=== PATIENT | male | born 1970 | race Caucasian/White ===

== ENCOUNTER 2019-03-01 22:11 | Emergency (ER) | payer OTHER ==
--- OUTSIDE RECORDS SUMMARY | 2019-03-01 22:13 | XMS REPORT ---
:1970 Author Organization eClinicalWorks Care Team Providers Name Role Phone Henry Jimenez Provider Role Unavailable Allergies, Adverse Reactions, Alerts Substance Reaction Event Type codeine Info Not Available Drug Allergy Problems Problem Type Condition Code Onset Dates Condition Status Assessment Anxiety F41.9 Active Problem Essential (primary) hypertension I10 Active Problem Primary insomnia F51.01 Active Problem Anxiety F41.9 Active Assessment Sleep disturbance G47.9 Active Assessment Essential (primary) hypertension I10 Active Problem Sleep disturbance G47.9 Active Medications Medication Code System Code Instructions Start End Date Status Dosage Date Edarbi [facility] 48749165981 40 MG Oral Active not defined Belsomra [facility] 80923142615 10 MG Orally January 09, Active 1 tablet at Once a day 2018 bedtime as needed Bystolic ND 57765811119 20 MG Oral Active not defined Results No Known Results Summary Purpose eClinicalWorks Submission
--- OUTSIDE RECORDS SUMMARY | 2019-03-01 22:13 | XMS REPORT ---
:1970 Author Organization eClinicalWorks Care Team Providers Name Role Phone Henry Jimenez Provider Role Unavailable Allergies, Adverse Reactions, Alerts Substance Reaction Event Type codeine Info Not Available Drug Allergy Problems Problem Type Condition Code Onset Dates Condition Status Assessment Sleep disturbance G47.9 Active Assessment Acute gout of right foot, M10.9 Active unspecified cause Assessment Hypertriglyceridemia E78.1 Active Problem Acute gout of right foot, M10.9 Active unspecified cause Problem Anxiety F41.9 Active Problem Hypertriglyceridemia E78.1 Active Problem Sleep disturbance G47.9 Active Problem Essential (primary) hypertension I10 Active Problem Primary insomnia F51.01 Active Medications Medication Code Code Instructions Start End Date Status Dosage System Date Edarbi [facility] 83549661840 40 MG Oral Active not defined Tricor [facility] 69951086339 145 MG Orally Mar 17, Active 1 tablet Once a day 2017 with food Indomethacin ND 66216399631 50 MG Orally Mar 17, Apr 16, Active 1 capsule Twice a day 2017 2017 with food or milk Belsomra [facility] 88631739718 10 MG Orally January 09, Active 1 tablet Once a day 2017 at bedtime as needed Bystolic ND 75699932752 20 MG Oral Active not defined Results No Known Results Summary Purpose eClinicalWorks Submission
--- OUTSIDE RECORDS SUMMARY | 2019-03-01 22:13 | XMS REPORT ---
:1970 Author Organization eClinicalWorks Care Team Providers Name Role Phone Henry Jimenez Provider Role Unavailable Allergies, Adverse Reactions, Alerts Substance Reaction Event Type codeine Info Not Available Drug Allergy Problems Problem Type Condition Code Onset Dates Condition Status Assessment Essential (primary) hypertension I10 Active Assessment Tobacco abuse counseling Z71.6 Active Problem Acute gout of right foot, M10.9 Active unspecified cause Problem Anxiety F41.9 Active Problem Hypertriglyceridemia E78.1 Active Problem Sleep disturbance G47.9 Active Problem Essential (primary) hypertension I10 Active Problem Primary insomnia F51.01 Active Medications Medication Code Code Instructions Start End Status Dosage System Date Date Indomethacin [facility] 65350595212 50 MG Orally Active 1 capsule Twice a day with food or milk Tricor [facility] 62560518701 145 MG Orally Mar 17, Active 1 tablet Once a day 2018 with food Edarbi ND 25786240681 40 MG Oral Active not defined BusPIRone HCl ND 01651652241 10 MG Orally Apr 25, Active 1 tablet Twice a day 2018 HydrOXYzine HCl ND 15453617782 25 MG Orally Oct 25, Active 1 tablet every 8 hrs 2018 as needed Belsomra ND 03845070434 10 MG Orally January 09, Active 1 tablet Once a day 2018 at bedtime as needed Bystolic ND 83746596205 20 MG Oral Inactive not defined Results No Known Results Summary Purpose eClinicalWorks Submission
--- OUTSIDE RECORDS SUMMARY | 2019-03-01 22:13 | XMS REPORT ---
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 Problem Obstructive sleep apnea G47.33 Active Problem Essential (primary) hypertension I10 Active Problem Primary insomnia F51.01 Active Problem Acute gout of right foot, M10.9 Active unspecified cause Problem Hypertriglyceridemia E78.1 Active Assessment 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 Assessment Essential (primary) hypertension I10 Active Assessment Hypertriglyceridemia E78.1 Active Assessment Obstructive sleep apnea G47.33 Active Assessment Decreased libido R68.82 Active Medications Medication Code Code Instructions Start End Status Dosage System Date Date Indomethacin [facility] 52796554662 50 MG Orally Active 1 capsule Twice a day with food or milk BusPIRone HCl [facility] 08821530625 10 MG Orally Oct 25, Active 1 tablet Twice a day 2018 Edarbi [facility] 42763052256 40 MG Oral Active not defined Tricor [facility] 90328881586 145 MG Orally Active 1 tablet Once a day with food HydrOXYzine HCl [facility] 93988916662 25 MG Orally Oct 25, Active 1 tablet every 8 hrs 2018 as needed Belsomra ND 26633372259 10 MG Orally January 09, Active 1 tablet Once a day 2018 at bedtime as needed Results No Known Results Summary Purpose eClinicalWorks Submission
--- OUTSIDE RECORDS SUMMARY | 2019-03-01 22:14 | XMS REPORT ---
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, without tophus (tophi) Problem Obstructive sleep apnea G47.33 Active Problem Erectile dysfunction, unspecified N52.9 Active erectile dysfunction type Problem Hypertriglyceridemia E78.1 Active Problem Essential (primary) hypertension I10 Active Problem 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 Problem Acute gout of right foot, M10.9 Active unspecified cause Assessment Hypertriglyceridemia E78.1 Active Assessment 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 Assessment Erectile dysfunction, unspecified N52.9 Active erectile dysfunction type Assessment Essential (primary) hypertension I10 Active Assessment Obstructive sleep apnea G47.33 Active Medications Medication Code Code Instructions Start End Status Dosage System Date Date Allopurinol [facility] 88888345920 300 MG Orally September Active 1 tablet Once a day 2018 Indomethacin [facility] 72033669677 50 MG Orally Active 1 capsule Twice a day with food or milk Edarbi [facility] 33267407564 40 MG Oral Active not defined Belsomra [facility] 65987936011 10 MG Orally January 09, Active 1 tablet Once a day 2017 at bedtime as needed Tricor [facility] 57886515623 145 MG Orally Active 1 tablet Once a day with food HydrOXYzine HCl [facility] 10038611525 25 MG Orally Oct 25, Active 1 tablet every 8 hrs 2017 as needed BusPIRone HCl [facility] 17783422136 10 MG Orally Oct 25, Active 1 tablet Twice a day 2018 Cialis [facility] 19348510928 20 MG Orally September Active 1 tablet Once a day 2018 Results No Known Results Summary Purpose eClinicalWorks Submission
[2019-03-01] MEDS ORDERED: TETANUS & DIPHTHERIA TOX,ADULT 0.5 ML VIAL ONE (22:57)
[2019-03-01] MEDS ORDERED: DERMABOND SKIN ADHESIVE TOP ONE (23:28)
[2019-03-01] MEDS ORDERED: LIDOCAINE 1% W/EPI 1:100,000 MDV 20 ML VIAL ONE (23:33)
--- NOTE | 2019-03-01 23:54 | ER ---
Nurse's Notes [facility] Name: Sheng Coats Age: 48 yrs Sex: Male : 1970 Arrival Date: 03/01/2019 Time: 22:17 Bed 19 Private MD: Henry Jimenez Diagnosis: Abrasion of other part of head;Laceration without foreign body of other part of head Presentation: 03/01 22:25 Presenting complaint: states: Pt had been drinking vodka and fell down and hit tr5 face on the ground. Transition of care: patient was not received from another setting of care. Mechanism of Injury: resulted from a fall, while walking. Onset of symptoms was March 01, 2019. Risk Assessment: Do you want to hurt yourself or someone else? Patient reports no desire to harm self or others. Initial Sepsis Screen: Does the patient meet any 2 criteria? No. Patient's initial sepsis screen is negative. Does the patient have a suspected source of infection? No. Patient's initial sepsis screen is negative. Care prior to arrival: None. 22:25 Method Of Arrival: Ambulatory tr5 22:25 Acuity: MARY 3 tr5 Historical: - Allergies: 22:32 Codeine; tr5 - Home Meds: 22:32 lisinopril 20 mg Oral tab 1 tab once daily [Active]; tr5 - PMHx: 22:32 Hypertension; tr5 22:33 GERD; Hyperlipidemia; tr5 - PSHx: 22:33 shoulder surgery; tr5 - Immunization history:: Adult Immunizations up to date, Last tetanus immunization: unknown. - Social history:: Smoking status: Patient uses tobacco products, smokes one-half pack cigarettes per day. - Ebola Screening: : No symptoms or risks identified at this time. Screenin:38 Abuse screen: Denies threats or abuse. Nutritional screening: No deficits noted. tr5 Tuberculosis screening: No symptoms or risk factors identified. Fall Risk None identified. Assessment: 22:38 General: Appears in no apparent distress. Behavior is calm, cooperative. Pain: tr5 Complains of pain in forehead Quality of pain is described as aching, Pain began 1 hour ago. Neuro: Level of Consciousness is awake, alert, obeys commands, Oriented to person, place, time, Paper Coating Supervisor are equal bilaterally Moves all extremities. Gait is steady. Cardiovascular: Heart tones present Bruits absent Capillary refill < 3 seconds Pulses are all present. Edema is absent. Respiratory: Airway is patent Trachea midline Respiratory effort is even, unlabored, Respiratory pattern is regular, symmetrical, Breath sounds are clear bilaterally. GI: Reports nausea. : No signs and/or symptoms were reported regarding the genitourinary system. EENT: No signs and/or symptoms were reported regarding the EENT system. Derm: Skin is intact, Skin temperature is. Musculoskeletal: Capillary refill < 3 seconds. Injury Description: Head injury sustained to forehead. 23:30 Reassessment: Patient and/or family updated on plan of care and expected duration. Pain tr5 level reassessed. Patient is alert, oriented x 3, equal unlabored respirations, skin warm/dry/pink. Patient states feeling better. Vital Signs: 22:33 BP 145 / 99; Pulse 95; Resp 16; Temp 98(TE); Pulse Ox 96% on R/A; Weight 116.12 kg; tr5 Height 6 ft. 3 in. (190.50 cm); 23:30 BP 142 / 80; Pulse 90; Resp 18; Pulse Ox 100% on R/A; tr5 22:33 Body Mass Index 32.00 (116.12 kg, 190.50 cm) tr5 [place] Coma Score: 22:25 Eye Response: spontaneous(4). Verbal Response: confused(4). Motor Response: localizes tr5 pain(5). Total: 13. 08/12 00:32 Eye Response: spontaneous(4). Verbal Response: oriented(5). Motor Response: obeys gs commands(6). Total: 15. 00:32 Eye Response: spontaneous(4). Verbal Response: oriented(5). Motor Response: obeys gs commands(6). Total: 15. ED Course: 03/01 22:17 Patient arrived in ED. cl3 22:18 Henry Jimenez MD is Private Physician. cl3 22:21 Khadar Hernandez MD is Attending Physician. gs 22:25 Brodie Moore RN is Primary Nurse. tr5 22:27 Triage completed. tr5 22:33 Arm band placed on. tr5 22:38 Fall risk band placed. Placed in gown. Bed in low position. Door closed. Noise tr5 minimized. 23:07 Head C Spine Mpr Wo Con In Process Unspecified. EDAL 03/02 00:09 No provider procedures requiring assistance completed. Patient did not have IV access tr5 during this emergency room visit. Administered Medications: 03/01 23:03 Drug: Tetanus-Diphtheria Toxoid Adult 0.5 ml {Steam Flattener: [employer]. Exp: tr5 10/30/2020. Lot #: [id number]. } Route: IM; Site: right ventrogluteal; 23:42 Follow up: Response: No adverse reaction tr5 23:42 Drug: Lidocaine-Epinephrine -1%: (1:100,000) 5 ml Volume: 20 ml; Route: Infiltration; tr5 03/02 00:08 Not Given (Patient Refused): Tylenol 650 mg PO once tr5 Outcome: 03/01 23:53 Discharge ordered by . 03/02 00:09 Discharged to home ambulatory, with significant other. tr5 Condition: stable Discharge instructions given to patient, significant other, Instructed on discharge instructions, follow up and referral plans. Demonstrated understanding of instructions, follow-up care. 00:10 Patient left the ED. tr5 Signatures: Dispatcher [employer] EDAL Khadar Hernandez MD MD gs Rodriguez, Tommie RN RN tr5 Michael Buckley cl3
--- NOTE | 2019-03-01 23:54 | EDPHYS ---
Physician Documentation [facility] Name: Sheng Coats Age: 48 yrs Sex: Male : 1970 Arrival Date: 03/01/2019 Time: 22:17 Bed 19 Private MD: Henry Jimenez ED Physician Khadar Hernandez HPI: 03/02 00:32 This 48 yrs old Male presents to ER via Ambulatory with complaints of Head gs Injury-Adult. 00:32 The patient or guardian reports a laceration, 3 cm(s), irregular. The complaints affect gs the forehead. Context of injury: resulted from a fall, while walking. Onset: The symptoms/episode began/occurred acutely, just prior to arrival. Associated signs and symptoms:. Associated signs and symptoms: Pertinent positives: loss of conciousness. Severity of symptoms: At their worst the symptoms were moderate, in the emergency department the symptoms are unchanged. It is unknown whether or not the patient has had similar symptoms in the past. Historical: - Allergies: 03/01 22:32 Codeine; tr5 - Home Meds: 22:32 lisinopril 20 mg Oral tab 1 tab once daily [Active]; tr5 - PMHx: 22:32 Hypertension; tr5 22:33 GERD; Hyperlipidemia; tr5 - PSHx: 22:33 shoulder surgery; tr5 - Immunization history:: Adult Immunizations up to date, Last tetanus immunization: unknown. - Social history:: Smoking status: Patient uses tobacco products, smokes one-half pack cigarettes per day. - Ebola Screening: : No symptoms or risks identified at this time. ROS: 03/02 00:32 All other systems are negative. gs Exam: 00:32 ENT: Nares patent. No nasal discharge, no septal abnormalities noted. Tympanic gs membranes are normal and external auditory canals are clear. Oropharynx with no redness, swelling, or masses, exudates, or evidence of obstruction, uvula midline. Mucous membranes moist. Neck: Trachea midline, no thyromegaly or masses palpated, and no cervical lymphadenopathy. Supple, full range of motion without nuchal rigidity, or vertebral point tenderness. No Meningismus. Chest/axilla: Normal chest wall appearance and motion. Nontender with no deformity. No lesions are appreciated. Cardiovascular: Regular rate and rhythm with a normal S1 and S2. No gallops, murmurs, or rubs. Normal PMI, no JVD. No pulse deficits. Respiratory: Lungs have equal breath sounds bilaterally, clear to auscultation and percussion. No rales, rhonchi or wheezes noted. No increased work of breathing, no retractions or nasal flaring. Abdomen/GI: Soft, non-tender, with normal bowel sounds. No distension or tympany. No guarding or rebound. No evidence of tenderness throughout. Back: No spinal tenderness. No costovertebral tenderness. Full range of motion. 00:32 Skin: Warm, dry with normal turgor. Normal color with no rashes, no lesions, and no evidence of cellulitis. MS/ Extremity: Pulses equal, no cyanosis. Neurovascular intact. Full, normal range of motion. Neuro: Awake and alert, GCS 15, oriented to person, place, time, and situation. Cranial nerves II-XII grossly intact. Motor strength 5/5 in all extremities. Sensory grossly intact. Cerebellar exam normal. Normal gait. 00:32 Constitutional: The patient appears alert, awake. 00:32 Constitutional: The patient appears smells of alcohol, ETOH. 00:32 Head/face: Noted is a laceration(s), that is deep, 3 cm(s), of the forehead. 00:32 Eyes: Exam is negative for acute changes, Periorbital structures: appear normal. 00:52 Head/face: Noted is abrasion(s), that are mild, of the chin. Vital Signs: 03/01 22:33 BP 145 / 99; Pulse 95; Resp 16; Temp 98(TE); Pulse Ox 96% on R/A; Weight 116.12 kg; tr5 Height 6 ft. 3 in. (190.50 cm); 23:30 BP 142 / 80; Pulse 90; Resp 18; Pulse Ox 100% on R/A; tr5 22:33 Body Mass Index 32.00 (116.12 kg, 190.50 cm) tr5 [place] Coma Score: 22:25 Eye Response: spontaneous(4). Verbal Response: confused(4). Motor Response: localizes tr5 pain(5). Total: 13. 08 00:32 Eye Response: spontaneous(4). Verbal Response: oriented(5). Motor Response: obeys commands(6). Total: 15. 00:32 Eye Response: spontaneous(4). Verbal Response: oriented(5). Motor Response: obeys commands(6). Total: 15. Laceration: 00:32 Wound Repair of 3cm ( 1.2in ) subcutaneous laceration to face and forehead. Irregularly gs shaped.. Skin/tissue flap noted.. Distal neuro/vascular/tendon intact. Anesthesia: Local anesthetic administered with 3 mls of 1% lidocaine w/ Epi. Wound prep: Simple cleansing with betadine, Copious irrigation. Subcutaneous tissue closed with 4 5-0 Vicryl using simple sutures and sterile technique. Skin closed with 1-0 Adhesive skin closure using Dermabond. Patient tolerated well. MDM: 03/01 22:31 Patient medically screened. 03/02 00:32 Differential diagnosis: Laceration of Intracranial bleed- Concussion. Data reviewed: vital signs, nurses notes. Counseling: I had a detailed discussion with the patient and/or guardian regarding: the historical points, exam findings, and any diagnostic results supporting the discharge/admit diagnosis, radiology results, the need for outpatient follow up. Response to treatment: the patient's symptoms have markedly improved after treatment, and as a result, I will discharge patient. 03/01 23:07 Order name: Head C Spine Mpr Wo Con EDKY 03/01 22:32 Order name: Dermabond; Complete Time: 23:39 03/01 22:32 Order name: Dressing - Wound; Complete Time: 23:39 03/01 22:32 Order name: Setup Suture Tray; Complete Time: 23:39 Administered Medications: 03/01 23:03 Drug: Tetanus-Diphtheria Toxoid Adult 0.5 ml {Obiee Report Developer: [employer]. Exp: tr5 10/30/2020. Lot #: [id number]. } Route: IM; Site: right ventrogluteal; 23:42 Follow up: Response: No adverse reaction tr5 23:42 Drug: Lidocaine-Epinephrine -1%: (1:100,000) 5 ml Volume: 20 ml; Route: Infiltration; tr5 03/02 00:08 Not Given (Patient Refused): Tylenol 650 mg PO once tr5 Disposition: 03/01/19 23:53 Discharged to Home. Impression: Abrasion of other part of head, Laceration without foreign body of other part of head. - Condition is Stable. - Discharge Instructions: Tissue Adhesive Wound Care, Laceration Care, Adult, [id number]. - Medication Reconciliation Form, Thank You Letter, Antibiotic Education, Prescription Opioid Use form. - Follow up: Private Physician; When: 2 - 3 days; Reason: Re-evaluation by your physician. Signatures: Dispatcher [employer] [facility] Khadar Hernandez MD MD gs Rodriguez, Tommie RN RN tr5 Corrections: (The following items were deleted from the chart) 03/01 23:05 22:35 Head C Spine MPR Wo Con+CT.RAD.BRZ ordered. EDKY EDKY 23:07 23:05 [facility] 03/[facility] 00:10 03/01 23:53 03/01/2019 23:53 Discharged to Home. Impression: Abrasion of other part of tr5 head; Laceration without foreign body of other part of head. Condition is Stable. Forms are Medication Reconciliation Form, Thank You Letter, Antibiotic Education, Prescription Opioid Use. Follow up: Private Physician; When: 2 - 3 days; Reason: Re-evaluation by your physician. gs
--- NOTE | 2019-03-02 10:05 | RAD REPORT ---
EXAM DESCRIPTION: CT HEAD without IV contrast CT CERVICAL SPINE without IV contrast CLINICAL HISTORY: 48-year-old male who fell and hit his face TECHNIQUE: Multiple axial CT images of the brain and cervical spine were performed followed by sagit lori and coronal reconstructed images. The CT study is performed according to ALARA (as low as reasona rodolfo achievable) or ALARA/IMAGE GENTLY, with automatic adjustment of mA and/or kV according to patient size. Performed on: 03/01/2019 at 10:50 PM COMPARISON: None. FINDINGS: CT HEAD: There is no evidence of mass, acute mass effect or midline shift. There are no acute extra-axial flui d collections. There is no evidence of acute intracranial hemorrhage. The cerebral sulci and ventricles are normal in size and configuration. There are no focal abnormal areas of increased or decreased attenuation. There is no significant mucosal thickening of the paranasal sinuses. The mastoid air cells are clear. The orbital contents are grossly unremarkable. No acute osseous abnormalities are identified. No focal soft tissue abnormalities are identified. CT CERVICAL SPINE: The cervical vertebrae are normal in height. There is straightening of the normal cervical lordosis. The disc spaces are well preserved in height. Bone mineralization is normal. The atlanto-axial a rticulation is preserved and the odontoid process is intact. There is normal alignment of the facet joints on the parasagittal images. There are no significant de generative changes of the cervical spine. There is no evidence of acute fracture or subluxation. There is no significant canal stenosis. Ther e is no significant neural foraminal stenosis. The paravertebral and paraspinal soft tissues are un remarkable. The lung apices are clear. IMPRESSION: 1. There is no evidence of acute intracranial pathology. 2. No evidence of acute cervical spine injury. There is straightening of the normal cervical lordosis . Electronically signed by: Dulce Maria Barrera DO 03/01/2019 11:46 PM CDT Due to temporary technical issues with the PACS/Fluency reporting system, reports are being signed by the in house radiologist as a courtesy to ensure prompt reporting. The interpreting radiologist is f ully responsible for the content of the report.
== END 2019-03-02 00:10 | disposition home or self-care (01) ==
LOC: ER 22:11
DX: S00.81XA Abrasion of other part of head, initial encounter (principal); S01.81XA Laceration without foreign body of other part of head, initial encounter; W01.0XXA Fall on same level from slipping, tripping and stumbling without subsequent striking against object, initial encounter; Y93.01 Activity, walking, marching and hiking; I10 Essential (primary) hypertension; E78.5 Hyperlipidemia, unspecified; K21.9 Gastro-esophageal reflux disease without esophagitis; Z23 Encounter for immunization; F17.210 Nicotine dependence, cigarettes, uncomplicated
CPT/HCPCS: 70450; 72125; 90471; 90714; 99283

== ENCOUNTER 2019-07-20 21:01 | Emergency (ER) | payer OTHER ==
--- OUTSIDE RECORDS SUMMARY | 2019-07-20 21:03 | XMS REPORT ---
[...] End Date Status Dosage System Date Edarbi [facility] 06644468192 40 MG Oral Active not defined Tricor [facility] 52349301089 145 MG Orally Mar 17, Active 1 tablet Once a day 2017 with food Indomethacin ND 39729242004 50 MG Orally Mar 17, Apr 16, Active 1 capsule Twice a day 2017 2017 with food or milk Belsomra [facility] 25082135124 10 MG Orally January 09, Active 1 tablet Once a day 2017 at bedtime as needed Bystolic ND 26071344659 20 MG Oral Active not defined Results No Known Results Summary Purpose eClinicalWorks Submission
--- OUTSIDE RECORDS SUMMARY | 2019-07-20 21:03 | XMS REPORT ---
[...] Start End Date Status Dosage Date Edarbi [facility] 70739868578 40 MG Oral Active not defined Belsomra [facility] 44833814190 10 MG Orally January 09, Active 1 tablet at Once a day 2018 bedtime as needed Bystolic ND 17858136699 20 MG Oral Active not defined Results No Known Results Summary Purpose eClinicalWorks Submission
--- OUTSIDE RECORDS SUMMARY | 2019-07-20 21:04 | XMS REPORT ---
[...] End Status Dosage System Date Date Indomethacin [facility] 80497322320 50 MG Orally Active 1 capsule Twice a day with food or milk Tricor [facility] 89243995675 145 MG Orally Mar 17, Active 1 tablet Once a day 2018 with food Edarbi ND 29137211674 40 MG Oral Active not defined BusPIRone HCl ND 12716987354 10 MG Orally Apr 25, Active 1 tablet Twice a day 2018 HydrOXYzine HCl ND 96405363216 25 MG Orally Oct 25, Active 1 tablet every 8 hrs 2018 as needed Belsomra ND 09185465167 10 MG Orally January 09, Active 1 tablet Once a day 2018 at bedtime as needed Bystolic ND 68789770106 20 MG Oral Inactive not defined Results No Known Results Summary Purpose eClinicalWorks Submission
--- OUTSIDE RECORDS SUMMARY | 2019-07-20 21:04 | XMS REPORT ---
[...] End Status Dosage System Date Date Indomethacin [facility] 89257294969 50 MG Orally Active 1 capsule Twice a day with food or milk BusPIRone HCl [facility] 44265983599 10 MG Orally Oct 25, Active 1 tablet Twice a day 2018 Edarbi [facility] 79722388019 40 MG Oral Active not defined Tricor [facility] 86012283147 145 MG Orally Active 1 tablet Once a day with food HydrOXYzine HCl [facility] 63088840849 25 MG Orally Oct 25, Active 1 tablet every 8 hrs 2018 as needed Belsomra ND 00986040182 10 MG Orally January 09, Active 1 tablet Once a day 2018 at bedtime as needed Results No Known Results Summary Purpose eClinicalWorks Submission
--- OUTSIDE RECORDS SUMMARY | 2019-07-20 21:04 | XMS REPORT ---
[...] End Status Dosage System Date Date Allopurinol [facility] 19215128996 300 MG Orally September Active 1 tablet Once a day 2018 Indomethacin [facility] 35322959417 50 MG Orally Active 1 capsule Twice a day with food or milk Edarbi [facility] 63292987099 40 MG Oral Active not defined Belsomra [facility] 20776303277 10 MG Orally January 09, Active 1 tablet Once a day 2017 at bedtime as needed Tricor [facility] 47288105860 145 MG Orally Active 1 tablet Once a day with food HydrOXYzine HCl [facility] 41893420432 25 MG Orally Oct 25, Active 1 tablet every 8 hrs 2017 as needed BusPIRone HCl [facility] 86663005379 10 MG Orally Oct 25, Active 1 tablet Twice a day 2018 Cialis [facility] 82283815962 20 MG Orally September Active 1 tablet Once a day 2018 Results No Known Results Summary Purpose eClinicalWorks Submission
[2019-07-20] MEDS ORDERED: ONDANSETRON 4 MG/2 ML VIAL ONE (21:59)
[2019-07-20] MEDS ORDERED: MORPHINE 4 MG/ML SYR ONE (21:59)
[2019-07-20] MEDS ORDERED: NA CHLORIDE 0.9% 1,000 ML ONE (21:59)
[2019-07-20 22:13] LABS: Absolute Lymphocytes (CBC) 1.4 K/uL (0.7-4.9); Basophils % 0.3 % (0-1.3); Hematocrit 43.8 % (39.6-49.0); MPV 6.8 fL (7.6-11.3); RBC Red Blood Cell Count 4.74 M/uL (4.33-5.43)
[2019-07-20 22:22] LABS: Albumin 3.6 g/dL (3.4-5.0); Bilirubin Direct 0.3 mg/dL (0-0.2); Potassium 4.6 mmol/L (3.5-5.1); Protein, Total 7.4 g/dL (6.4-8.2)
--- NOTE | 2019-07-20 22:33 | RAD REPORT ---
EXAM DESCRIPTION: US - Abdomen Exam Limited - 07/20/2019 10:15 pm CLINICAL HISTORY: Abdominal pain. COMPARISON: None. FINDINGS: The gallbladder wall is not thickened. A gallstone is not seen. The biliary tree is normal caliber. IMPRESSION: Unremarkable gallbladder ultrasound.
--- NOTE | 2019-07-20 23:48 | EDPHYS ---
Physician Documentation [facility] Name: Sheng Coats Age: 48 yrs Sex: Male : 1970 Arrival Date: 07/20/2019 Time: 21:04 Bed 2 Private MD: ED Physician Conrado Ashraf HPI: 07/20 22:28 This 48 yrs old Male presents to ER via Ambulatory with complaints of pkl Abdominal Pain. 22:28 The patient presents with abdominal pain in the right upper quadrant. Onset: The pkl symptoms/episode began/occurred today. The symptoms radiate to the right flank. Associated signs and symptoms: Pertinent positives: diarrhea. Historical: - Allergies: 21:32 No Known Allergies; rr5 - Home Meds: 21:32 Edarvi [Active]; rr5 - PMHx: 21:32 Hypertension; GERD; rr5 - PSHx: 21:32 rotator cuff; rr5 - Immunization history:: Adult Immunizations up to date. - Social history:: Smoking status: Patient/guardian denies using tobacco, Patient uses alcohol, occasionally. Patient/guardian denies using street drugs. - Ebola Screening: : Patient negative for fever greater than or equal to 101.5 degrees Fahrenheit, and additional compatible Ebola Virus Disease symptoms Patient denies exposure to infectious person Patient denies travel to an Ebola-affected area in the 21 days before illness onset. ROS: 22:28 Eyes: Negative for injury, pain, redness, and discharge, ENT: Negative for injury, pkl pain, and discharge, Neck: Negative for injury, pain, and swelling, Cardiovascular: Negative for chest pain, palpitations, and edema, Respiratory: Negative for shortness of breath, cough, wheezing, and pleuritic chest pain. 22:28 Abdomen/GI: Positive for abdominal pain, of the right upper quadrant. 22:28 Back: Positive for flank pain, on the right. 22:28 : Negative for urinary symptoms. 22:28 MS/extremity: Negative for acute changes. 22:28 Skin: Negative for rash. 22:28 Neuro: Negative for altered mental status. Exam: 22:28 Head/Face: Normocephalic, atraumatic. Eyes: Pupils equal round and reactive to light, pkl extra-ocular motions intact. Lids and lashes normal. Conjunctiva and sclera are non-icteric and not injected. Cornea within normal limits. Periorbital areas with no swelling, redness, or edema. ENT: Nares patent. No nasal discharge, no septal abnormalities noted. Tympanic membranes are normal and external auditory canals are clear. Oropharynx with no redness, swelling, or masses, exudates, or evidence of obstruction, uvula midline. Mucous membranes moist. Neck: Trachea midline, no thyromegaly or masses palpated, and no cervical lymphadenopathy. Supple, full range of motion without nuchal rigidity, or vertebral point tenderness. No Meningismus. Chest/axilla: Normal chest wall appearance and motion. Nontender with no deformity. No lesions are appreciated. Cardiovascular: Regular rate and rhythm with a normal S1 and S2. No gallops, murmurs, or rubs. Normal PMI, no JVD. No pulse deficits. Respiratory: Lungs have equal breath sounds bilaterally, clear to auscultation and percussion. No rales, rhonchi or wheezes noted. No increased work of breathing, no retractions or nasal flaring. 22:28 Abdomen/GI: Palpation: soft, mild abdominal tenderness, in the right upper quadrant. 22:28 Back: Exam negative for acute changes. 22:28 : Exam negative for acute changes. 22:28 Musculoskeletal/extremity: Exam is negative for acute changes. 22:28 Skin: Exam negative for rash. 22:28 Neuro: Orientation: is normal, Mentation: is normal, Cranial nerves: grossly normal, Motor: is normal. Vital Signs: 21:32 BP 140 / 91; Pulse 102; Resp 17; Temp 97.9; Pulse Ox 99% ; Weight 112.94 kg; Height 6 rr5 ft. 3 in. (190.50 cm); Pain 4/10; 22:37 BP 151 / 98; Pulse 100; Resp 18; Pulse Ox 96% on R/A; ea 23:55 BP 139 / 93; Pulse 67; Resp 18; Temp 98; Pulse Ox 100% on R/A; bb 21:32 Body Mass Index 31.12 (112.94 kg, 190.50 cm) rr5 MDM: 21:44 Patient medically screened. pkl 23:43 Data reviewed: vital signs, nurses notes, lab test result(s), radiologic studies, CT pkl scan, ultrasound. 07/20 21:45 Order name: Basic Metabolic Panel; Complete Time: 22:24 ea 07/20 21:45 Order name: CBC with Diff; Complete Time: 22:24 ea 07/20 21:45 Order name: Creatinine for Radiology; Complete Time: 22:24 ea 07/20 21:45 Order name: Hepatic Function; Complete Time: 22:24 ea 07/20 21:45 Order name: Lipase; Complete Time: 22:24 ea 07/20 23:08 Order name: Urine Dipstick--Ancillary (enter results) ar5 07/20 21:45 Order name: IV Saline Lock; Complete Time: 21:57 ea 07/20 21:45 Order name: Labs collected and sent; Complete Time: :57 ea 07/20 21:51 Order name: US Abdomen Limited; Complete Time: 23:43 pkl 07/20 22:27 Order name: CT Abd/Pelvis - IV Contrast Only pkl Administered Medications: 22:00 Drug: Zofran 4 mg Route: IVP; Site: left antecubital; ea 22:14 Follow up: Response: No adverse reaction ea 22:02 Drug: NS 0.9% 1000 ml Route: IV; Rate: 1000 ml; Site: left antecubital; ea 23:00 Follow up: Response: No adverse reaction; IV Status: Completed infusion; IV Intake: bb 1000ml 22:02 Drug: morphine 4 mg {Note: RASS 0.} Route: IVP; Site: left antecubital; ea 22:13 Follow up: Response: No adverse reaction; Pain is decreased ea Disposition: 07/20/19 23:48 Discharged to Home. Impression: Right upper quadrant pain. Gastroenteritis. Dehydration. - Condition is Stable. - Medication Reconciliation Form, Thank You Letter, Antibiotic Education, Prescription Opioid Use, Work release form form. - Follow up: Private Physician; When: 2 - 3 days; Reason: Re-evaluation by your physician. - Problem is new. - Symptoms have improved. Signatures: Dispatcher [employer] EDMS Conrado Ashraf MD MD pkl Ballard, Brenda, RN RN Melissa Simpson, RN RN Vinnie Jimenez RN RN rr5 Corrections: (The following items were deleted from the chart) 07/21 00:05 07/20 23:48 07/20/2019 23:48 Discharged to Home. Impression: Right upper quadrant pain. bb Gastroenteritis. Dehydration. Condition is Stable. Forms are Medication Reconciliation Form, Thank You Letter, Antibiotic Education, Prescription Opioid Use. Follow up: Private Physician; When: 2 - 3 days; Reason: Re-evaluation by your physician. Problem is new. Symptoms have improved. pkl
--- NOTE | 2019-07-20 23:48 | ER ---
Nurse's Notes [facility] Name: Sheng Coats Age: 48 yrs Sex: Male : 1970 Arrival Date: 07/20/2019 Time: 21:04 Bed 2 Private MD: Diagnosis: Right upper quadrant pain. Gastroenteritis. Dehydration Presentation: 07/20 21:25 Presenting complaint: Patient states: abdominal pain (RUQ) area radiating to flank area rr5 started today. diarrhea 5x, at first I thought its like acid reflux I took antacid but it did not relieved. denies fever, N/V. 21:25 Transition of care: patient was not received from another setting of care. Onset of rr5 symptoms was July 20, 2019. Risk Assessment: Do you want to hurt yourself or someone else? Patient reports no desire to harm self or others. Initial Sepsis Screen: Does the patient meet any 2 criteria? No. Patient's initial sepsis screen is negative. Does the patient have a suspected source of infection? No. Patient's initial sepsis screen is negative. Care prior to arrival: Medication(s) given: antacids. 21:25 Method Of Arrival: Ambulatory rr5 21:25 Acuity: MARY 3 rr5 Historical: - Allergies: 21:32 No Known Allergies; rr5 - Home Meds: 21:32 Edarvi [Active]; rr5 - PMHx: 21:32 Hypertension; GERD; rr5 - PSHx: 21:32 rotator cuff; rr5 - Immunization history:: Adult Immunizations up to date. - Social history:: Smoking status: Patient/guardian denies using tobacco, Patient uses alcohol, occasionally. Patient/guardian denies using street drugs. - Ebola Screening: : Patient negative for fever greater than or equal to 101.5 degrees Fahrenheit, and additional compatible Ebola Virus Disease symptoms Patient denies exposure to infectious person Patient denies travel to an Ebola-affected area in the 21 days before illness onset. Screenin:43 Abuse screen: Denies threats or abuse. Nutritional screening: No deficits noted. ea Tuberculosis screening: No symptoms or risk factors identified. Fall Risk None identified. Assessment: 21:41 General: Appears in no apparent distress. Behavior is calm, cooperative, appropriate ea for age. Pain: Complains of pain in right upper quadrant. Neuro: Level of Consciousness is awake, alert, obeys commands, Oriented to person, place, time, situation. Respiratory: Airway is patent Respiratory effort is even, unlabored, Respiratory pattern is regular, symmetrical. GI: Bowel sounds present X 4 quads. Abdomen is tender to palpation in right upper quadrant. GI: Reports diarrhea. Derm: Skin is pink, warm \T\ dry. 22:00 Reassessment: Patient and/or family updated on plan of care and expected duration. Pain ea level reassessed. Patient is alert, oriented x 3, equal unlabored respirations, skin warm/dry/pink. Ultrasound at bedside. 22:13 Reassessment: Patient and/or family updated on plan of care and expected duration. Pain ea level reassessed. Patient is alert, oriented x 3, equal unlabored respirations, skin warm/dry/pink. Patient states feeling better. 22:49 Reassessment: Patient and/or family updated on plan of care and expected duration. Pain ea level reassessed. Patient is alert, oriented x 3, equal unlabored respirations, skin warm/dry/pink. Pt taken to CT. 22:55 Reassessment: Patient and/or family updated on plan of care and expected duration. Pain ea level reassessed. Patient is alert, oriented x 3, equal unlabored respirations, skin warm/dry/pink. Pt returned from CT. 07/21 00:02 Reassessment: Patient and/or family updated on plan of care and expected duration. Pain bb level reassessed. Patient is alert, oriented x 3, equal unlabored respirations, skin warm/dry/pink. Discharge instruction given to patient, verbalized the understanding of instruction. Pt left ED ambulatory accompanied by family. Pt tolerating well Patient states feeling better. Vital Signs: 07/20 21:32 BP 140 / 91; Pulse 102; Resp 17; Temp 97.9; Pulse Ox 99% ; Weight 112.94 kg; Height 6 rr5 ft. 3 in. (190.50 cm); Pain 4/10; 22:37 BP 151 / 98; Pulse 100; Resp 18; Pulse Ox 96% on R/A; ea 23:55 BP 139 / 93; Pulse 67; Resp 18; Temp 98; Pulse Ox 100% on R/A; bb 21:32 Body Mass Index 31.12 (112.94 kg, 190.50 cm) rr5 ED Course: 20:52 Inserted saline lock: 20 gauge in left antecubital area, using aseptic technique. Blood ea collected. 21:04 Patient arrived in ED. cf2 21:30 Triage completed. rr5 21:33 Arm band placed on right wrist. rr5 21:41 Melissa Garsia, RN is Primary Nurse. ea 21:43 Patient has correct armband on for positive identification. Placed in gown. Bed in low ea position. Call light in reach. Adult w/ patient. 21:44 Conrado Ashraf MD is Attending Physician. pkl 22:17 US Abdomen Limited In Process Unspecified. EDMS 23:06 CT Abd/Pelvis - IV Contrast Only In Process Unspecified. EDMS 07/21 00:00 IV discontinued, intact, bleeding controlled, No redness/swelling at site. Pressure bb dressing applied. 00:03 No provider procedures requiring assistance completed. bb Administered Medications: 07/20 22:00 Drug: Zofran 4 mg Route: IVP; Site: left antecubital; ea 22:14 Follow up: Response: No adverse reaction ea 22:02 Drug: NS 0.9% 1000 ml Route: IV; Rate: 1000 ml; Site: left antecubital; ea 23:00 Follow up: Response: No adverse reaction; IV Status: Completed infusion; IV Intake: bb 1000ml 22:02 Drug: morphine 4 mg {Note: RASS 0.} Route: IVP; Site: left antecubital; ea 22:13 Follow up: Response: No adverse reaction; Pain is decreased ea Intake: 23:00 IV: 1000ml; Total: 1000ml. bb Outcome: 23:48 Discharge ordered by . pksamra 07/21 00:03 Discharged to home ambulatory, with family. bb Condition: stable Discharge instructions given to patient, family, Instructed on discharge instructions, follow up and referral plans. Demonstrated understanding of instructions, follow-up care. 00:05 Patient left the ED. bb Signatures: Dispatcher [employer] EDMS Conrado Ashraf MD MD pkl Ballard, Brenda RN RN Melissa Simpson, Vinnie Schrader RN, ea, RN RN rr5 Crow Kate cf2 Corrections: (The following items were deleted from the chart) 07/20 22:02 22:02 morphine 4 mg IVP in left antecubital ea ea
[2019-07-21 00:07] LABS: Urine Blood NEGATIVE (NEG); Urine Glucose NEGATIVE (NEG); Urine Protein NEGATIVE (NEG); Urine pH 6.5 (5.0-7.0)
[2019-07-21 02:23] VITALS: TEMP 97.9
[2019-07-21 02:24] VITALS: BP 151/98; O2SAT 96
--- NOTE | 2019-07-23 12:12 | RAD REPORT ---
EXAM DESCRIPTION: CT - Abdomen Pelvis W Contrast - 07/21/2019 5:08 am CLINICAL HISTORY: The patient is 48 years old and is Male; ABD PAIN TECHNIQUE: Axial computed tomography images of the abdomen and pelvis with intravenous contrast. S agittal and coronal reformatted images were created and reviewed. This CT exam was performed using one or more of the following dose reduction techniques: automated exposure control, adjustment of t he mA and/or kV according to patient size, and/or use of iterative reconstruction technique. COMPARISON: No relevant prior studies available. FINDINGS: LUNG BASES: Unremarkable. No mass. No consolidation. ABDOMEN: LIVER: There is a diffuse decrease in hepatic parenchymal density, consistent with fatty infiltr ation. GALLBLADDER AND BILE DUCTS: No calcified stones. No ductal dilation. PANCREAS: No ductal dilation. No mass. SPLEEN: Unremarkable. ADRENALS: Unremarkable. No mass. KIDNEYS AND URETERS: Unremarkable. The kidneys enhance symmetrically. No obstructing renal or ur eteral calculus is seen. No hydronephrosis or hydroureter. No perinephric fluid or stranding. STOMACH AND BOWEL: The stomach is minimally distended with food contents. The small bowel is nor mal in caliber. Stool and contrast are present throughout colon. There is no mucosal thickening or ev idence of bowel obstruction. PELVIS: APPENDIX: The appendix is normal in caliber without surrounding inflammation. BLADDER: The bladder is well distended. REPRODUCTIVE: Unremarkable as visualized. ABDOMEN and PELVIS: INTRAPERITONEAL SPACE: Unremarkable. No free air. No significant fluid collection. BONES/JOINTS: No acute fracture. SOFT TISSUES: The soft tissues are normal. VASCULATURE: Unremarkable. No abdominal aortic aneurysm. LYMPH NODES: Unremarkable. No enlarged lymph nodes. IMPRESSION: No acute findings on this contrasted CT of the abdomen and pelvis to explain the patient 's symptoms. 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 The interpreting radiologist is f ully responsible for the content of the report.
== END 2019-07-21 00:05 | disposition home or self-care (01) ==
LOC: ER 21:01
DX: K52.9 Noninfective gastroenteritis and colitis, unspecified (principal); E86.0 Dehydration; I11.0 Hypertensive heart disease with heart failure
CPT/HCPCS: 96361; 85025; 80048; 36415; 80076; 81003; 83690; 74177; 76705; 96375; 96374; 99284; Q9967; J7030; J2405

== ENCOUNTER 2019-11-23 07:40 | Day surgery (SDC) | payer BC ==
--- NOTE | 2019-11-18 10:53 | RAD REPORT ---
EXAM DESCRIPTION: RAD - Chest Pa And Lat (2 Views) - 11/18/2019 10:43 am CLINICAL HISTORY: pre op for surgery Chest pain. COMPARISON: No comparisons FINDINGS: The lungs are clear. The heart is normal in size. No displaced fractures. IMPRESSION: No acute or concerning finding suspected.
[2019-11-18 11:24] LABS: Absolute Lymphocytes (CBC) 1.4 K/uL (0.7-4.9); Hematocrit 40.5 % (39.6-49.0); Lymphocytes % 31.3 % (15.3-44.8); MPV 6.9 fL (7.6-11.3); RBC Red Blood Cell Count 4.33 M/uL (4.33-5.43)
[2019-11-18 11:44] LABS: Potassium 3.9 mmol/L (3.5-5.1)
--- NOTE | 2019-11-19 14:43 | EKG ---
Test Date: 2019-11-18 Test Time: 09:39:19 Water Service Supervisor: DENNYS MEASUREMENT RESULTS: Intervals: Rate: 73 HI: 138 QRSD: 108 QT: 386 QTc: 425 [place]: P: 45 HI: 138 QRS: 94 T: 42 INTERPRETIVE STATEMENTS: Normal sinus rhythm Rightward axis Borderline ECG Compared to ECG 03/06/2016 16:52:56 Right-axis deviation now present Electronically Signed On 11-19-19 14:41:08 CDT by Sp Lepe
--- OUTSIDE RECORDS SUMMARY | 2019-11-23 07:47 | XMS REPORT ---
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 Problem Obstructive sleep apnea G47.33 Acti ve Problem Essential (primary) hypertension I10 Active Problem Primary insomnia F51.01 Active Problem Acute gout of right foot, M10.9 Ac tive unspecified cause Problem Hypertriglyceridemia E78.1 Active Assessment 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 Assessment Essential (primary) hypertension I10 Active Assessment Hypertriglyceridemia E78.1 Active Assessment Obstructive sleep apnea G47.33 Acti ve Assessment Decreased libido R68.82 Active Medications Medication Code Code Instructions Start End Status Dosage System Date Date Indomethacin [facility] 16971232340 50 MG Orally Active 1 capsule Twice a day with food or milk BusPIRone HCl [facility] 35602123458 10 MG Orally Oct 25, Active 1 tablet Twice a day 2018 Edarbi [facility] 43252724577 40 MG Oral Active not defined Tricor [facility] 18303219057 145 MG Orally Active 1 tabl et Once a day with food HydrOXYzine HCl [facility] 70355463241 25 MG Orally Oct 25, Active 1 tablet every 8 hrs 2018 as needed Belsomra [facility] 95425764008 10 MG Orally January 09, Active 1 tab let Once a day 2018 at bedtime as needed Results No Known Results Summary Purpose eClinicalWorks Submission
--- OUTSIDE RECORDS SUMMARY | 2019-11-23 07:47 | XMS REPORT ---
:1970 Author Organization eClinicalWorks Care Team Providers Name Role Phone Henry Jimenez Provider Role Unavailable Allergies, Adverse Reactions, Alerts Substance Reaction Event Type codeine Info Not Available Drug Allergy Problems Problem Type Condition Code Onset Dates Condition Statu s Assessment Essential (primary) hypertension I10 Active Assessment Tobacco abuse counseling Z71.6 Act odalis Problem Acute gout of right foot, M10.9 Ac tive unspecified cause Problem Anxiety F41.9 Active Problem Hypertriglyceridemia E78.1 Active Problem Sleep disturbance G47.9 Active Problem Essential (primary) hypertension I10 Active Problem Primary insomnia F51.01 Active Medications Medication Code Code Instructions Start End Status Dosage System Date Date Indomethacin [facility] 76400845110 50 MG Orally Active 1 capsule Twice a day with food or milk Tricor [facility] 91810555722 145 MG Orally Mar 17, Active 1 tabl et Once a day 2018 with food Edarbi [facility] 70277989834 40 MG Oral Active not defined BusPIRone HCl [facility] 88135392712 10 MG Orally Oct 25, Active 1 tablet Twice a day 2018 HydrOXYzine HCl ND 39147051059 25 MG Orally Oct 25, Active 1 tablet every 8 hrs 2018 as needed Belsomra [facility] 71714143845 10 MG Orally January 09, Active 1 tab let Once a day 2018 at bedtime as needed Bystolic ND 97316998907 20 MG Oral Inactive not defined Results No Known Results Summary Purpose eClinicalWorks Submission
--- OUTSIDE RECORDS SUMMARY | 2019-11-23 07:47 | XMS REPORT ---
:1970 Author Organization e[employer]Works Care Team Providers Name Role Phone Henry Jimenez Provider Role Unavailable Allergies, Adverse Reactions, Alerts Substance Reaction Event Type codeine Info Not Available Drug Allergy Problems Problem Type Condition Code Onset Dates Condition Statu s Assessment Sleep disturbance G47.9 Active Assessment Acute gout of right foot, M10.9 Ac tive unspecified cause Assessment Hypertriglyceridemia E78.1 Active Problem Acute gout of right foot, M10.9 Ac tive unspecified cause Problem Anxiety F41.9 Active Problem Hypertriglyceridemia E78.1 Active Problem Sleep disturbance G47.9 Active Problem Essential (primary) hypertension I10 Active Problem Primary insomnia F51.01 Active Medications Medication Code Code Instructions Start End Date Status Dosage System Date Edarbi [facility] 58421610960 40 MG Oral Active not defined Tricor [facility] 80471657636 145 MG Orally Mar 17, Active 1 tabl et Once a day 2017 with food Indomethacin ND 76409098591 50 MG Orally Mar 17, Apr 16, Active 1 capsule Twice a day 2017 2017 with food or milk Belsomra [facility] 10354028646 10 MG Orally January 09, Active 1 tab let Once a day 2018 at bedtime as needed Bystolic [facility] 44254845925 20 MG Oral Active not defined Results No Known Results Summary Purpose eClinicalWorks Submission
--- OUTSIDE RECORDS SUMMARY | 2019-11-23 07:47 | XMS REPORT ---
:1970 Author Organization eClinicalWorks Care Team Providers Name Role Phone Henry Jimenez Provider Role Unavailable Allergies, Adverse Reactions, Alerts Substance Reaction Event Type codeine Info Not Available Drug Allergy Problems Problem Type Condition Code Onset Dates Condition Statu s Assessment Anxiety F41.9 Active Problem Essential (primary) hypertension I10 Active Problem Primary insomnia F51.01 Active Problem Anxiety F41.9 Active Assessment Sleep disturbance G47.9 Active Assessment Essential (primary) hypertension I10 Active Problem Sleep disturbance G47.9 Active Medications Medication Code System Code Instructions Start End Date Status Dos age Date Edarbi [facility] 17451113429 40 MG Oral Active not defin ed Belsomra [facility] 96031329213 10 MG Orally January 09 1 tab let at Once a day 2018 bedtime as needed Bystolic [facility] 12265548814 20 MG Oral Active not defi candi Results No Known Results Summary Purpose eClinicalWorks Submission
--- OUTSIDE RECORDS SUMMARY | 2019-11-23 07:47 | XMS REPORT ---
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, without tophus (tophi) Problem Obstructive sleep apnea G47.33 Acti ve Problem Erectile dysfunction, unspecified N52.9 Active erectile dysfunction type Problem Hypertriglyceridemia E78.1 Active Problem Essential (primary) hypertension I10 Active Problem 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 Problem Acute gout of right foot, M10.9 Ac tive unspecified cause Assessment Hypertriglyceridemia E78.1 Active Assessment 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 Assessment Erectile dysfunction, unspecified N52.9 Active erectile dysfunction type Assessment Essential (primary) hypertension I10 Active Assessment Obstructive sleep apnea G47.33 Acti ve Medications Medication Code Code Instructions Start End Status Dosage System Date Date Allopurinol [facility][NOTE 3] 87214257390 300 MG Orally September Active 1 tablet Once a day 2018 Indomethacin [facility][NOTE 3] 37464728558 50 MG Orally Active 1 capsule Twice a day with food or milk Edarbi [facility][NOTE 3] 09255150390 40 MG Oral Active not defined Belsomra [facility][NOTE 3] 40190487772 10 MG Orally January 09, Active 1 tab let Once a day 2017 at bedtime as needed Tricor [facility][NOTE 3] 49477396255 145 MG Orally Active 1 tabl et Once a day with food HydrOXYzine HCl ND 33505634010 25 MG Orally Oct 25, Active 1 tablet every 8 hrs 2018 as needed BusPIRone HCl ND 73079807404 10 MG Orally Oct 25, Active 1 tablet Twice a day 2018 Cialis [facility][NOTE 3] 92058916097 20 MG Orally September Active 1 table t Once a day 2018 Results No Known Results Summary Purpose eClinicalWorks Submission
--- OUTSIDE RECORDS SUMMARY | 2019-11-23 07:47 | XMS REPORT ---
:1970 Author Organization [facility] t Address [address] [place] [id number] Care Team Providers Name Role Phone Unavailable Unavailable Unavailable Problems Condition Condition Condition Status Onset Resolution Last Treatin g Comments Name Details Category Date Date Treatment Clinician Date Anxiety Anxiety Problem Active Essential Essential Diagnosis Active (primary) (primary) hypertensio hypertensio n n Primary Primary Problem Active insomnia insomnia Sleep Sleep Problem Active disturbance disturbance Acute gout Acute gout Problem Active of right of right foot, foot, unspecified unspecified cause cause Hypertrigly Hypertrigly Diagnosis Active ceridemia ceridemia Lead-induce Lead-induce Problem Active d chronic d chronic gout, left gout, left ankle and ankle and foot, foot, without without tophus tophus (tophi) (tophi) Idiopathic Idiopathic Diagnosis Active chronic chronic gout of gout of left ankle left ankle without without tophus tophus Obstructive Obstructive Diagnosis Active sleep apnea sleep apnea Erectile Erectile Diagnosis Active dysfunction dysfunction , , unspecified unspecified erectile erectile dysfunction dysfunction type type Allergies, Adverse Reactions, Alerts Allergy Allergy Status Severity Reaction(s) Onset Inactive Treating C omments Name Type Date Date Clinician codeine Adverse Active Info Not Reaction Available Medications Ordered Filled Start Stop Current Ordering Indication Dosage Frequency Signature Comments Components Medication Medication Date Date Medication? Clinician (SIG) Name Name Allopurinol Allopurinol 2019- No Henry 1 tabl et 10-06 Tony 00:00: 00:00 00 :00 Cialis Cialis 2019- No Henry 1 tablet 10-06 Tony 00:00: 00:00 00 :00 BusPIRone BusPIRone 2017- Yes Henry 1 tablet HCl HCl 0-25 Tony 00:00: 00 HydrOXYzine HydrOXYzine 2017- Yes Henry 1 tabl et HCl HCl 0-25 Tony as needed 00:00: 00 Belsomra Belsomra 2018-0 Yes Henry 1 tablet 6-21 Tony at bedtime 00:00: as needed 00 Edarbi Edarbi Yes Henry not Tony defined Indomethaci Indomethaci Yes Henry 1 capsu le n n Tony with food or milk Tricor Tricor Yes Henry 1 tablet Tony with food Encounters Start End Encounter Admission Attending Care Care Encounter Date/Time Date/Time Type Type Clinicians Facility Department ID 2018-10-06 2018-10-06 [id number] 13:45:00 13:45:00 [facility] 2018-09-26 2018-09-26 [id number] 09:45:00 09:45:00 [facility] 2018-08-14 2018-08-14 [id number] 13:15:00 13:15:00 [facility] 2018-03-17 2018-03-17 [id number] 14:30:00 14:30:00 [facility] 2018-01-09 2018-01-09 [facility] [id number] 14:30:00 14:30:00 [facility]
[2019-11-23] MEDS ORDERED: Ringers Lactate 1,000 ML IV ONE (08:02)
[2019-11-23] MEDS ORDERED: CEFOXITIN/SWI 1gm 1 GM/10 ML SYR ONE (08:06)
[2019-11-23] MEDS ORDERED: ROCURONIUM 50 MG/5 ML VIAL IV ONE (08:20)
[2019-11-23] MEDS ORDERED: LIDOCAINE 1% MPF 5 ML VIAL ONE (08:20)
[2019-11-23] MEDS ORDERED: propofoL 200 MG/20 ML VIAL IV ONE (08:20)
[2019-11-23] MEDS ORDERED: MIDAZOLAM HCL 2 MG/2 ML INJ ONE (08:20)
[2019-11-23] MEDS ORDERED: FENTANYL CITR 100 MCG/2 ML ONE ×2 (08:20→08:59)
[2019-11-23] MEDS ORDERED: GLYCOPYRROLATE 0.2 MG/ML SYR ONE (08:59)
[2019-11-23] MEDS ORDERED: ONDANSETRON 4 MG/2 ML VIAL ONE (09:00)
[2019-11-23] MEDS ORDERED: dexAMETHasone 10 MG/ML VIAL ONE (09:00)
[2019-11-23] MEDS ORDERED: NEOSTIGMINE 1 MG/ML -5 ML ONE (09:00)
[2019-11-23] MEDS ORDERED: KETOROLAC 30 MG/ML INJ ONE (09:00)
[2019-11-23] MEDS: HYDROMORPHONE HCL 1 MG/ML INJ ONE ×7 (09:56→10:22)
[2019-11-23] MEDS ORDERED: PROMETHAZINE INJ 25 MG/ML AMP ONE (10:01)
[2019-11-23 10:29] VITALS: TEMP 97.2
[2019-11-23] MEDS ORDERED: HYDROCODONE/APAP 7.5/325 MG TAB ONE (10:56)
[2019-11-23 10:57] VITALS: BP 115/73; O2SAT 96
--- NOTE | 2019-11-23 11:03 | OP ---
Date of Procedure: 11/23/2019 Surgeon: Hayden Florez MD Clinical Project Manager: SHERLYN Yuan. Preoperative Diagnosis: Chronic cholecystitis and biliary dyskinesia. Postoperative Diagnosis: Chronic cholecystitis and biliary dyskinesia. with umbilical hernia. Estimated Blood Loss: Minimal. Specimen: Hernia sac and contents and gallbladder. Findings: As above. Anesthesia: General. Complications: None. Disposition: Patient tolerated the procedure in stable condition, taken to Recovery in good general condition. Procedure In Detail: Patient was brought to the OR and placed in supine position after general anest hesia was begun. Patient was prepped and draped in usual sterile fashion. Marcaine 0.5% was infiltr ated locally. A 15 blade was used to make a 1 cm incision over the midline in the supraumbilical reg ion and subcutaneous tissues divided. Hernia sac and contents identified 1 cm defect remained. Magdaleno ia sac and contents excised, sent to Pathology as specimen. #1 Vicryl stay suture placed on the fasc ia. Peritoneal cavity entered with sharp and blunt dissection. A 12 mm trocar was placed into the p eritoneal cavity under direct vision. Pneumoperitoneum was established. Then, three 5 mm trocars we re placed, one in the epigastrium just to the right of midline and 2 in the right subcostal region. Laparoscopy revealed chronic inflammation of the gallbladder. Fundus retracted superiorly. Infundib ulum was identified and retracted inferolaterally. Cystic duct and cystic artery clearly identified with blunt dissection. Clips placed. Both structures divided. Cautery was used to remove the gallb ladder from the liver bed. Bleeding on the liver bed was controlled with cautery. The gallbladder w as retrieved through the umbilicus via an EndoCatch bag. Right upper quadrant was irrigated. Efflue nt was clear. No evidence of bleeding or bile leakage appreciated. Subsequently, all trocars were removed under direct vision. Stay sutures were tied to each other to close the hernia defect. Subcutaneous wounds were irrigated. Bleeding controlled with cautery. 3-0 chromic used to approximate the subcutaneous tissue and close the skin. Sterile dressing was applied . Patient was awakened and taken to Recovery in good general condition. Discharge Note: Patient will go to Day Surgery and home when stable. Disposition: Home. Condition: Stable. Discharge Instructions: Resume home medications and diet. Activity as tolerated. No heavy lifting. Remove outer dressing in 2 days. Shower. Keep wound clean and dry. Keep Steri-Strips on all time s. Follow up in my office in one week. Call for appointment. Tylenol No.3 one tab p.o. q.4 p.r.n. p ain. ALDEN/CAITIE Voice ID: [id number] Report ID: [id number]
== END 2019-11-23 11:25 | disposition home or self-care (01) ==
LOC: OR 07:40
PROVIDERS: ATTEND Surgery
PROC: 0WQF0ZZ Repair Abdominal Wall, Open Approach (ICD-10-PCS; 2019-11-23)
PROC: 0FT44ZZ Resection of Gallbladder, Percutaneous Endoscopic Approach (ICD-10-PCS; principal; 2019-11-23 08:30)
DX: K80.12 Calculus of gallbladder with acute and chronic cholecystitis without obstruction (principal); K42.9 Umbilical hernia without obstruction or gangrene; Z11.59 Encounter for screening for other viral diseases; K82.8 Other specified diseases of gallbladder; I10 Essential (primary) hypertension; G47.33 Obstructive sleep apnea (adult) (pediatric); K21.9 Gastro-esophageal reflux disease without esophagitis
CPT/HCPCS: 47562; 49585; 93005; 85025; 80048; 36415; 88302; 88304; 71046; J2704; J2550; J2250; J3010 ×2; J1100; J1170 ×3; J2710; J7120; J2405

== ENCOUNTER 2019-11-29 01:07 | Emergency (ER) | payer BC ==
--- OUTSIDE RECORDS SUMMARY | 2019-11-29 01:10 | XMS REPORT ---
:1970 Author Organization [facility] t Address [address] [place] [address] Care Team Providers Name Role Phone Unavailable [...] ID 2018-10-06 2018-10-06 [id number] 13:45:00 13:45:00 [facility] 2018-09-26 2018-09-26 [id number] 09:45:00 09:45:00 [facility] 2018-08-14 2018-08-14 [id number] 13:15:00 13:15:00 [facility] 2018-03-17 2018-03-17 [id number] 14:30:00 14:30:00 [facility] 2018-01-09 2018-01-09 [facility] [id number] 14:30:00 14:30:00 [facility]
--- OUTSIDE RECORDS SUMMARY | 2019-11-29 01:10 | XMS REPORT ---
[...] End Date Status Dosage System Date Edarbi [facility] 74767646456 40 MG Oral Active not defined Tricor [facility] 64678387843 145 MG Orally Mar 17, Active 1 tabl et Once a day 2017 with food Indomethacin ND 46857812467 50 MG Orally Mar 17, Apr 16, Active 1 capsule Twice a day 2017 2017 with food or milk Belsomra [facility] 71910904461 10 MG Orally January 09, Active 1 tab let Once a day 2018 at bedtime as needed Bystolic [facility] 01595284386 20 MG Oral Active not defined Results No Known Results Summary Purpose eClinicalWorks Submission
--- OUTSIDE RECORDS SUMMARY | 2019-11-29 01:10 | XMS REPORT ---
[...] End Date Status Dos age Date Edarbi [facility] 88059756908 40 MG Oral Active not defin ed Belsomra [facility] 21259813932 10 MG Orally January 09 1 tab let at Once a day 2018 bedtime as needed Bystolic [facility] 36298404857 20 MG Oral Active not defi candi Results No Known Results Summary Purpose eClinicalWorks Submission
--- OUTSIDE RECORDS SUMMARY | 2019-11-29 01:11 | XMS REPORT ---
:1970 [facility] Team Providers Name Role Phone Henry [...] End Status Dosage System Date Date Allopurinol [facility] 68529115193 300 MG Orally September Active 1 tablet Once a day 2018 Indomethacin [facility] 77167505362 50 MG Orally Active 1 capsule Twice a day with food or milk Edarbi [facility] 17440206281 40 MG Oral Active not defined Belsomra [facility] 66774661137 10 MG Orally January 09, Active 1 tab let Once a day 2017 at bedtime as needed Tricor [facility] 75190842067 145 MG Orally Active 1 tabl et Once a day with food HydrOXYzine HCl ND 51444643439 25 MG Orally Oct 25, Active 1 tablet every 8 hrs 2018 as needed BusPIRone HCl ND 68731466217 10 MG Orally Oct 25, Active 1 tablet Twice a day 2018 Cialis [facility] 38763115852 20 MG Orally September Active 1 table t Once a day 2018 Results No Known Results Summary Purpose eClinicalWorks Submission
--- OUTSIDE RECORDS SUMMARY | 2019-11-29 01:11 | XMS REPORT ---
[...] End Status Dosage System Date Date Indomethacin [facility] 66697189909 50 MG Orally Active 1 capsule Twice a day with food or milk Tricor [facility] 36701536830 145 MG Orally Mar 17, Active 1 tabl et Once a day 2018 with food Edarbi [facility] 78159846304 40 MG Oral Active not defined BusPIRone HCl [facility] 34892470506 10 MG Orally Oct 25, Active 1 tablet Twice a day 2018 HydrOXYzine HCl ND 51463634480 25 MG Orally Oct 25, Active 1 tablet every 8 hrs 2018 as needed Belsomra [facility] 44206454770 10 MG Orally January 09, Active 1 tab let Once a day 2018 at bedtime as needed Bystolic ND 57765498511 20 MG Oral Inactive not defined Results No Known Results Summary Purpose eClinicalWorks Submission
--- OUTSIDE RECORDS SUMMARY | 2019-11-29 01:11 | XMS REPORT ---
[...] End Status Dosage System Date Date Indomethacin [facility] 08743155674 50 MG Orally Active 1 capsule Twice a day with food or milk BusPIRone HCl [facility] 17540104733 10 MG Orally Oct 25, Active 1 tablet Twice a day 2018 Edarbi [facility] 30992636321 40 MG Oral Active not defined Tricor [facility] 35442669231 145 MG Orally Active 1 tabl et Once a day with food HydrOXYzine HCl [facility] 77178912459 25 MG Orally Oct 25, Active 1 tablet every 8 hrs 2018 as needed Belsomra [facility] 44801279696 10 MG Orally January 09, Active 1 tab let Once a day 2018 at bedtime as needed Results No Known Results Summary Purpose eClinicalWorks Submission
[2019-11-29] MEDS ORDERED: CODEINE 30MG/APAP 300MG TAB ONE (02:52)
--- NOTE | 2019-11-29 03:56 | EDPHYS ---
Physician Documentation [facility] Name: Sheng Coats Age: 49 yrs Sex: Male : 1970 Arrival Date: 11/29/2019 Time: 01:08 Bed 3 Private MD: ED Physician Dixon Banks HPI: 11/28 02:09 This 49 yrs old Male presents to ER via Ambulatory with complaints of left mh7 shoulder injury. 02:09 The patient or guardian complains of an injury. left shoulder. Context: The problem was mh7 sustained outdoors, resulted from a fall, fall from a ladder about 6-8 feet, The patient experiences decreased range of motion, when attempts to raise arm, The patient reports no obvious deformity. Onset: The symptoms/episode began/occurred yesterday. Modifying factors: the symptoms are alleviated by remaining still, The symptoms are aggravated by movement. Associated signs and symptoms: Pertinent negatives: abdominal pain, chest pain, diaphoresis, dyspnea, neck pain, shortness of breath, tingling, no numbness or weakness. Severity of symptoms: At their worst the symptoms were moderate, yesterday, in the emergency department the symptoms have improved, moderately. Treatment prior to arrival includes: no previous treatment. Historical: - Allergies: : No Known Allergies; lp1 - Home Meds: : Unable to obtain [Active]; lp1 - PMHx: :57 GERD; Hyperlipidemia; Hypertension; lp1 - PSHx: :57 Cholecystectomy; lp1 - Immunization history:: Adult Immunizations up to date. - Social history:: Smoking status: Patient denies any tobacco usage or history of. ROS: 02:09 Constitutional: Negative for fever, chills, and weight loss, Eyes: Negative for injury, mh7 pain, redness, and discharge, ENT: Negative for injury, pain, and discharge, Neck: Negative for injury, pain, and swelling, Cardiovascular: Negative for chest pain, palpitations, and edema, Respiratory: Negative for shortness of breath, cough, wheezing, and pleuritic chest pain, Abdomen/GI: Negative for abdominal pain, nausea, vomiting, diarrhea, and constipation, Back: Negative for injury and pain, : Negative for injury, bleeding, discharge, and swelling, Skin: Negative for injury, rash, and discoloration, Neuro: Negative for headache, weakness, numbness, tingling, and seizure, Psych: Negative for depression, anxiety, suicide ideation, homicidal ideation, and hallucinations, Allergy/Immunology: Negative for hives, rash, and allergies, Endocrine: Negative for neck swelling, polydipsia, polyuria, polyphagia, and marked weight changes, Hematologic/Lymphatic: Negative for swollen nodes, abnormal bleeding, and unusual bruising. Exam: 02:09 Constitutional: This is a well developed, well nourished patient who is awake, alert, mh7 and in no acute distress. Head/Face: Normocephalic, atraumatic. Eyes: Pupils equal round and reactive to light, extra-ocular motions intact. Lids and lashes normal. Conjunctiva and sclera are non-icteric and not injected. Cornea within normal limits. Periorbital areas with no swelling, redness, or edema. Neck: Trachea midline, no thyromegaly or masses palpated, and no cervical lymphadenopathy. Supple, full range of motion without nuchal rigidity, or vertebral point tenderness. No Meningismus. Chest/axilla: Normal chest wall appearance and motion. Nontender with no deformity. No lesions are appreciated. Cardiovascular: Regular rate and rhythm with a normal S1 and S2. No gallops, murmurs, or rubs. Normal PMI, no JVD. No pulse deficits. Respiratory: Lungs have equal breath sounds bilaterally, clear to auscultation and percussion. No rales, rhonchi or wheezes noted. No increased work of breathing, no retractions or nasal flaring. Abdomen/GI: Soft, non-tender, with normal bowel sounds. No distension or tympany. No guarding or rebound. No evidence of tenderness throughout. Back: No spinal tenderness. No costovertebral tenderness. Full range of motion. Skin: Warm, dry with normal turgor. Normal color with no rashes, no lesions, and no evidence of cellulitis. 02:09 Neuro: Awake and alert, GCS 15, oriented to person, place, time, and situation. Cranial nerves II-XII grossly intact. Motor strength 5/5 in all extremities. Sensory grossly intact. Cerebellar exam normal. Normal gait. 02:09 Musculoskeletal/extremity: Extremities: grossly normal except: noted in the left shoulder: pain, tenderness, ROM: limited active range of motion due to pain, in the left shoulder, limited passive range of motion due to pain, in the left shoulder, Circulation is intact in all extremities. Pulses: are normal with no appreciated deficits, Perfusion: the patient is normally perfused throughout, Perfusion: the extremity is normally perfused throughout, Edema, is not appreciated, the left shoulder Sensation intact. Compartment Syndrome exam of affected extremity: is normal. no numbness, no tingling, no sensation deficit, no palor, no weak pulses, Joints: All joints are normal except the left shoulder displays painful range of motion, tenderness, Weight bearing: able to fully bear weight, without difficulty, Tendon exam: specific tendon testing normal through active and passive range of motion Vital Signs: 01:15 BP 111 / 72; Pulse 103; Resp 18; Pulse Ox 97% on R/A; Weight 108.86 kg (R); Height 6 lp1 ft. 3 in. (190.50 cm); Pain 9/10; 01:55 Pulse 95; Resp 20; Pulse Ox 97% on R/A; tl2 01:15 Body Mass Index 30.00 (108.86 kg, 190.50 cm) lp1 MDM: 02:02 Patient medically screened. mh7 03:51 Differential diagnosis: Anterior dislocation with fracture, Anterior dislocation mh7 without fracture, Posterior dislocation with fracture, Posterior dislocation without fracture, contusion. Data reviewed: vital signs, nurses notes, radiologic studies, plain films. ED course: Well appearing, NAD, VSS, no focal neurological deficits. Discussed all test results and findings with the patient and answered all of his questions. he will follow up with his doctor in 1-2 days. Explained need to return to the ED if worsening of symptoms or other concerns.. 11/28 02:07 Order name: Shoulder Left (2 View) XRAY mh7 Administered Medications: 02:48 Drug: Tylenol #3 (300 mg-30 mg) 1 tablet Route: PO; tl2 Disposition: 11/29/19 03:55 Discharged to Home. Impression: Contusion of left shoulder. - Condition is Stable. - Discharge Instructions: Contusion, [id number]. - Medication Reconciliation Form, Thank You Letter, Antibiotic Education, Prescription Opioid Use form. - Follow up: Private Physician; When: 1 - 2 days; Reason: Worsening of condition, Re-evaluation by your physician. Follow up: Reji Patel MD; When: 1 - 2 days; Reason: Worsening of condition, Re-evaluation by your physician. - Problem is new. - Symptoms have improved. Signatures: Dispatcher [employer] EDMS Reny Lutz, RN RN lp1 Gali Phillips, RN RN tl2 Christen Goins mw2 Dixon Banks MD MD 7 Corrections: (The following items were deleted from the chart) 03:56 03:55 11/29/2019 03:55 Discharged to Home. Impression: Contusion of left shoulder. mh7 Condition is Stable. Forms are Medication Reconciliation Form, Thank You Letter, Antibiotic Education, Prescription Opioid Use. Follow up: Private Physician; When: 1 - 2 days; Reason: Worsening of condition, Re-evaluation by your physician. Problem is new. Symptoms have improved. mh7 04:12 03:56 11/29/2019 03:55 Discharged to Home. Impression: Contusion of left shoulder. mw2 Condition is Stable. Forms are Medication Reconciliation Form, Thank You Letter, Antibiotic Education, Prescription Opioid Use. Follow up: Private Physician; When: 1 - 2 days; Reason: Worsening of condition, Re-evaluation by your physician. Follow up: Dr. Reji Patel; When: 1 - 2 days; Reason: Worsening of condition, Re-evaluation by your physician. Problem is new. Symptoms have improved. 7
--- NOTE | 2019-11-29 03:56 | ER ---
Nurse's Notes [facility] Name: Sheng Coats Age: 49 yrs Sex: Male : 1970 Arrival Date: 11/29/2019 Time: 01:08 Bed 3 Private MD: Diagnosis: Contusion of left shoulder Presentation: 11/28 01:15 Chief complaint: Patient states: Left shoulder pain since this afternoon after falling lp1 off of a ladder while trying to change a light bulb, about 10 feet up; denies any head injury, any other pain; States have been drinking wine all day for the pain; had Cholecystectomy on 11/23/19. 01:15 Method Of Arrival: Ambulatory lp1 01:15 Coronavirus screen: Proceed with normal triage. Ebola Screen: No symptoms or risks lp1 identified at this time. Initial Sepsis Screen: Does the patient meet any 2 criteria? No. Patient's initial sepsis screen is negative. Does the patient have a suspected source of infection? No. Patient's initial sepsis screen is negative. Risk Assessment: Do you want to hurt yourself or someone else? Patient reports no desire to harm self or others. Onset of symptoms was November 28, 2019 at 12:00. 01:15 Acuity: MARY 3 lp1 Historical: - Allergies: 01:57 No Known Allergies; lp1 - Home Meds: :57 Unable to obtain [Active]; lp1 - PMHx: 01:57 GERD; Hyperlipidemia; Hypertension; lp1 - PSHx: 01:57 Cholecystectomy; lp1 - Immunization history:: Adult Immunizations up to date. - Social history:: Smoking status: Patient denies any tobacco usage or history of. Screenin:56 Abuse screen: Denies threats or abuse. Denies injuries from another. Nutritional lp1 screening: No deficits noted. Tuberculosis screening: No symptoms or risk factors identified. Fall Risk None identified. Vital Signs: 01:15 BP 111 / 72; Pulse 103; Resp 18; Pulse Ox 97% on R/A; Weight 108.86 kg (R); Height 6 lp1 ft. 3 in. (190.50 cm); Pain 9/10; 01:55 Pulse 95; Resp 20; Pulse Ox 97% on R/A; tl2 01:15 Body Mass Index 30.00 (108.86 kg, 190.50 cm) lp1 ED Course: 01:08 Patient arrived in ED. cl3 01:56 Triage completed. lp1 01:56 Arm band placed on. lp1 01:56 Patient maintains SpO2 saturation greater than 95% on room air. lp1 02:01 Dixon Banks MD is Attending Physician. 7 02:40 Shoulder Left (2 View) XRAY In Process Unspecified. EDMS 02:44 Gali Phillips, RN is Primary Nurse. tl2 03:56 Reji Patel MD is Referral Physician. 7 Administered Medications: 02:48 Drug: Tylenol #3 (300 mg-30 mg) 1 tablet Route: PO; tl2 Outcome: 03:55 Discharge ordered by . 7 04:12 Patient left the ED. mw2 Signatures: Dispatcher [employer] EDMS Reny Lutz RN RN lp1 Gali Phillips RN RN tl2 Christen Goins mw2 Michael Buckley cl3 Dixon Banks MD MD [facility]
[2019-11-29 04:16] VITALS: BP 111/72; O2SAT 97
--- NOTE | 2019-11-29 11:07 | RAD REPORT ---
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 No acute fracture or d islocation is evident.
== END 2019-11-29 04:12 | disposition home or self-care (01) ==
LOC: ER 01:07
DX: S40.012A Contusion of left shoulder, initial encounter (principal); W11.XXXA Fall on and from ladder, initial encounter; Y93.9 Activity, unspecified; Y92.9 Unspecified place or not applicable
CPT/HCPCS: 99284

== ENCOUNTER 2021-04-08 16:52 | Emergency (ER) | payer BC ==
[2021-04-08] MEDS ORDERED: ONDANSETRON 4 MG/2 ML VIAL ONE (17:37)
[2021-04-08] MEDS ORDERED: MORPHINE 4 MG/ML SYR ONE (17:37)
[2021-04-08] MEDS ORDERED: NA CHLORIDE 0.9% 1,000 ML ONE (17:55)
[2021-04-08 18:03] LABS: Absolute Lymphocytes (CBC) 0.8 K/uL (0.7-4.9); Basophils % 0.3 % (0-1.3); Hematocrit 47.7 % (39.6-49.0); Lymphocytes % 7.7 % (15.3-44.8); MPV 7.1 fL (7.6-11.3)
[2021-04-08 18:15] LABS: Albumin 3.7 g/dL (3.4-5.0); Bilirubin Direct 0.5 mg/dL (0-0.2); Bilirubin Total 1.9 mg/dL (0.2-1.0); Potassium 4.1 mmol/L (3.5-5.1); Protein, Total 8.2 g/dL (6.4-8.2)
--- NOTE | 2021-04-08 18:24 | ER ---
Nurse's Notes [facility] Name: Sheng Coats Age: 50 yrs Sex: Male : 1970 Arrival Date: 04/08/2021 Time: 16:54 Bed 20 Private MD: Peña Garibay H Diagnosis: Upper abdominal pain, unspecified Presentation: 04/08 17:03 Chief complaint: Patient states: RUQ pain, pt reports he is seeing Dr. Garibay for the aa5 pain but the pain got worse and he decided to come in to ER for pain medication. Pt also reports nausea/vomiting. Coronavirus screen: nausea, vomiting. Ebola Screen: Patient negative for fever greater than or equal to 101.5 degrees Fahrenheit, and additional compatible Ebola Virus Disease symptoms. Initial Sepsis Screen: Does the patient meet any 2 criteria? HR > 90 bpm. Does the patient have a suspected source of infection? No. Patient's initial sepsis screen is negative. Risk Assessment: Do you want to hurt yourself or someone else? Patient reports no desire to harm self or others. Onset of symptoms was March 2021. 17:03 Method Of Arrival: Ambulatory aa5 17:03 Acuity: MARY 3 aa5 Triage Assessment: 17:10 General: Appears distressed, uncomfortable, Behavior is cooperative, appropriate for bp age, anxious. Pain: Complains of pain in right upper quadrant. EENT: No deficits noted. Neuro: No deficits noted. Cardiovascular: No deficits noted. Respiratory: No deficits noted. GI: Reports upper abdominal pain, nausea, vomiting. : No signs and/or symptoms were reported regarding the genitourinary system. Derm: No signs and/or symptoms reported regarding the dermatologic system. Musculoskeletal: No deficits noted. Historical: - Allergies: 17:04 No Known Allergies; aa5 - PMHx: 17:04 GERD; Hyperlipidemia; Hypertension; aa5 - Immunization history:: Client reports receiving the Alfredo \T\ Alfredo single-dose vaccine. - Social history:: Smoking status: Patient denies any tobacco usage or history of. Screenin:10 Abuse screen: Denies threats or abuse. Denies injuries from another. Nutritional bp screening: No deficits noted. Tuberculosis screening: No symptoms or risk factors identified. Fall Risk None identified. Assessment: 17:10 General: SEE TRIAGE NOTE. bp Vital Signs: 17:05 BP 156 / 110; Pulse 105; Resp 18 S; Temp 98.4(TE); Pulse Ox 99% on R/A; Weight 113.4 kg aa5 (R); Height 6 ft. 2 in. (187.96 cm) (R); 17:15 BP 146 / 104; Pulse 103; Resp 16; Pulse Ox 96% ; bp 17:05 Body Mass Index 32.10 (113.40 kg, 187.96 cm) aa5 ED Course: 16:54 Patient arrived in ED. as 16:54 Peña Garibay MD is Private Physician. as 17:03 Arm band placed on. aa5 17:04 Triage completed. aa5 17:05 [facility] kb 17:05 Demetri Correa MD is Attending Physician. kb 17:10 Elbert Powell, HUBERT is Primary Nurse. bp 17:10 Patient has correct armband on for positive identification. Bed in low position. Call bp light in reach. Side rails up X2. Adult w/ patient. 17:10 Inserted saline lock: 20 gauge in right forearm, using aseptic technique. Blood bp collected. 18:23 Peña Garibay MD is Referral Physician. kb 18:47 IV discontinued, intact, bleeding controlled, No redness/swelling at site. Pressure bp dressing applied. Administered Medications: 16:50 Drug: morphine 4 mg Route: IVP; Site: right forearm; bp 18:32 Follow up: Response: Pain is decreased bp 16:50 Drug: Zofran (Ondansetron) 4 mg Route: IVP; Site: right forearm; bp 18:32 Follow up: Response: No adverse reaction bp 16:50 Drug: NS 0.9% 1000 ml Route: IV; Rate: 1000 ml; Site: right forearm; bp 18:32 Follow up: IV Status: Completed infusion; IV Intake: 1000ml bp 18:32 Drug: [place] (HYDROcodone-acetaminophen) 10 mg-325 mg 1 tabs Route: PO; bp 18:33 Follow up: Response: Pain is decreased bp Intake: 18:32 IV: 1000ml; Total: 1000ml. bp Outcome: 18:23 Discharge ordered by MD. kb 18:47 Patient left the ED. bp Signatures: Greer Dowd FNP-C FNP-Danyell Bach as Delores Fitch, RN RN aa5 Elbert Powell RN RN bp Corrections: (The following items were deleted from the chart) 17:37 16:50 Inserted saline lock: 20 gauge in right forearm, using aseptic technique. Blood bp collected. bp
--- NOTE | 2021-04-08 18:24 | EDPHYS ---
Physician Documentation [facility] Name: Sheng Coats Age: 50 yrs Sex: Male : 1970 Arrival Date: 04/08/2021 Time: 16:54 Bed 20 Private MD: Peña Garibay H ED Physician Demetri Correa HPI: 04/08 17:31 This 50 yrs old Male presents to ER via Ambulatory with complaints of kb Abdominal Cramping. 17:31 The patient presents with abdominal pain in the right upper quadrant. Onset: The kb symptoms/episode began/occurred 2 month(s) ago. The symptoms do not radiate. Associated signs and symptoms: Pertinent positives: nausea and vomiting. The symptoms are described as constant. Modifying factors: The symptoms are alleviated by nothing, the symptoms are aggravated by nothing. Severity of pain: At its worst the pain was moderate in the emergency department the pain is unchanged. The patient has not experienced similar symptoms in the past. The patient has been recently seen by a physician:. Pt reports RUQ pain for 2 months. States he has been to Dr Garibay for this pain and has been doing diagnostics to figure out the cause. States he has had CTs, US, upper and lower GI. Reports he has had nausea and vomiting for about a week, went hunting yesterday and got overheated. States he is dehydrated now so he needs fluids and pain medication. . Historical: - Allergies: 17:04 No Known Allergies; aa5 - PMHx: 17:04 GERD; Hyperlipidemia; Hypertension; aa5 - Immunization history:: Client reports receiving the Alfredo \T\ Alfredo single-dose vaccine. - Social history:: Smoking status: Patient denies any tobacco usage or history of. ROS: 17:34 Constitutional: Negative for fever, chills, and weight loss. kb 17:34 Abdomen/GI: Positive for abdominal pain, nausea and vomiting. 17:34 All other systems are negative. Exam: 17:34 Constitutional: This is a well developed, well nourished patient who is awake, alert, kb and in no acute distress. Head/Face: Normocephalic, atraumatic. ENT: Moist Mucous membranes Cardiovascular: Regular rate and rhythm with a normal S1 and S2. No gallops, murmurs, or rubs. No pulse deficits. Respiratory: Respirations even and unlabored. No increased work of breathing, no retractions or nasal flaring. Skin: Warm, dry with normal turgor. Normal color. MS/ Extremity: Pulses equal, no cyanosis. Neurovascular intact. Full, normal range of motion. Neuro: Awake and alert, GCS 15, oriented to person, place, time, and situation. Moves all extremities. Normal gait. Psych: Awake, alert, with orientation to person, place and time. Behavior, mood, and affect are within normal limits. 17:34 Abdomen/GI: Inspection: abdomen appears normal, Bowel sounds: normal, in all quadrants, Palpation: soft, in all quadrants, moderate abdominal tenderness, in the right upper quadrant. Vital Signs: 17:05 BP 156 / 110; Pulse 105; Resp 18 S; Temp 98.4(TE); Pulse Ox 99% on R/A; Weight 113.4 kg aa5 (R); Height 6 ft. 2 in. (187.96 cm) (R); 17:15 BP 146 / 104; Pulse 103; Resp 16; Pulse Ox 96% ; bp 17:05 Body Mass Index 32.10 (113.40 kg, 187.96 cm) aa5 MDM: 17:06 Patient medically screened. kb 17:34 Data reviewed: vital signs, nurses notes. Data interpreted: Pulse oximetry: on room air kb is 99 %. Interpretation: normal. 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 18:23 Response to treatment: the patient's symptoms have resolved after treatment. kb 04/08 17:06 Order name: Basic Metabolic Panel; Complete Time: 18:19 kb 04/08 17:06 Order name: CBC with Diff; Complete Time: 18:11 kb 04/08 17:06 Order name: Hepatic Function; Complete Time: 18:19 kb 04/08 17:06 Order name: Lipase; Complete Time: 18:19 kb 04/08 17:06 Order name: IV Saline Lock; Complete Time: 17:22 kb 04/08 17:06 Order name: Labs collected and sent; Complete Time: 17:22 kb Administered Medications: 16:50 Drug: morphine 4 mg Route: IVP; Site: right forearm; bp 18:32 Follow up: Response: Pain is decreased bp 16:50 Drug: Zofran (Ondansetron) 4 mg Route: IVP; Site: right forearm; bp 18:32 Follow up: Response: No adverse reaction bp 16:50 Drug: NS 0.9% 1000 ml Route: IV; Rate: 1000 ml; Site: right forearm; bp 18:32 Follow up: IV Status: Completed infusion; IV Intake: 1000ml bp 18:32 Drug: [place] (HYDROcodone-acetaminophen) 10 mg-325 mg 1 tabs Route: PO; bp 18:33 Follow up: Response: Pain is decreased bp Disposition Summary: 04/08/21 18:23 Discharge Ordered Location: Home kb Condition: Stable kb Diagnosis - Upper abdominal pain, unspecified kb Followup: kb - With: Emergency Department - When: As needed - Reason: Worsening of condition Followup: kb - With: Private Physician - When: 2 - 3 days - Reason: Recheck today's complaints, Continuance of care, Re-evaluation by your physician Followup: kb - With: Peña Garibay MD - When: 2 - 3 days - Reason: Recheck today's complaints, Continuance of care, Re-evaluation by your physician Discharge Instructions: - Discharge Summary Sheet kb - Abdominal Pain, Adult, [id number] kb Forms: - Medication Reconciliation Form kb - Thank You Letter kb - Antibiotic Education kb - Prescription Opioid Use kb Prescriptions: - dicyclomine 20 mg Oral Tablet - take 1 tablet by ORAL route every 6 hours As needed; 20 tablet; Refills: 0, kb Product Selection Permitted Addendum: 04/10/2021 10:09 Co-signature as Attending Physician, Demetri Correa MD I agree with the assessment and k dr plan of care. Signatures: Dispatcher [employer] EDGreer Mitchell, SHAY-C SHAY-Demetri Cruz MD MD [facility] Delores Fitch, RN RN aa5 Elbert Powell, RN RN bp Corrections: (The following items were deleted from the chart) 04/08 17:17 17:06 Abdomen Limited+US.RAD.BRZ ordered. EDMS EDMS
[2021-04-08] MEDS ORDERED: HYDROCODONE/APAP 10/325 TAB ONE (19:00)
[2021-04-08 20:12] VITALS: TEMP 98.4
[2021-04-08 20:13] VITALS: BP 146/104; O2SAT 96
== END 2021-04-08 18:47 | disposition home or self-care (01) ==
LOC: ER 16:52
DX: R10.11 Right upper quadrant pain (principal); I10 Essential (primary) hypertension
CPT/HCPCS: 96361; 85025; 80048; 36415; 80076; 83690; 96375; 96374; 99283; J7030; J2405

== ENCOUNTER 2021-04-24 14:45 | Emergency (ER) | payer BC ==
[2021-04-24 15:26] LABS: Absolute Lymphocytes (CBC) 1.4 K/uL (0.7-4.9); Basophils % 0.5 % (0-1.3); Hematocrit 45.6 % (39.6-49.0); Lymphocytes % 29.4 % (15.3-44.8); MPV 6.4 fL (7.6-11.3); RBC Red Blood Cell Count 4.82 M/uL (4.33-5.43)
[2021-04-24] MEDS ORDERED: MORPHINE 4 MG/ML SYR ONE ×2 (15:39→17:49)
[2021-04-24] MEDS ORDERED: ONDANSETRON 4 MG/2 ML VIAL ONE ×2 (15:39→17:49)
[2021-04-24] MEDS ORDERED: NA CHLORIDE 0.9% 1,000 ML ONE (15:39)
[2021-04-24 16:22] LABS: Albumin 3.6 g/dL (3.4-5.0); Bilirubin Direct 0.1 mg/dL (0-0.2); Bilirubin Total 0.5 mg/dL (0.2-1.0); Protein, Total 7.8 g/dL (6.4-8.2)
--- NOTE | 2021-04-24 17:37 | RAD REPORT ---
EXAM DESCRIPTION: MRI - Cholangiogram - 04/24/2021 5:19 pm CLINICAL HISTORY: abd pain COMPARISON: Abdomen Pelvis W Contrast dated 12/15/2020 FINDINGS: Three-dimensional MRCP was performed using maximum intensity projection reconstruction on the same work station. No intrahepatic biliary tree dilatation is seen. The common bile duct is normal caliber without evide nce of retained stone, stricture or mass. The pancreatic duct is not pathologically dilated. Cholecystectomy. Limited T2 sequences through the abdomen demonstrates no bulky adenopathy, significant free fluid or abscess. IMPRESSION: Cholecystectomy without biliary ductal dilatation or evidence of choledocholithiasis.
--- NOTE | 2021-04-24 17:39 | ER ---
Nurse's Notes [facility] Name: Sheng Coats Age: 50 yrs Sex: Male : 1970 Arrival Date: 04/24/2021 Time: 14:47 Bed 20 Private MD: Diagnosis: Upper abdominal pain, unspecified Presentation: 04/24 14:51 Chief complaint: Intermittent sharp RUQ pain x 2 weeks. Seen in ED 10 days ago for same hb s/s, referred to Dr. Garibay but has not been seen yet. Coronavirus screen: At this time, the client does not indicate any symptoms associated with coronavirus-19. Ebola Screen: No symptoms or risks identified at this time. Initial Sepsis Screen: Does the patient meet any 2 criteria? No. Patient's initial sepsis screen is negative. Does the patient have a suspected source of infection? No. Patient's initial sepsis screen is negative. Risk Assessment: Do you want to hurt yourself or someone else? Patient reports no desire to harm self or others. Onset of symptoms was March 2021. 14:51 Method Of Arrival: Ambulatory hb 14:51 Acuity: MARY 3 hb Historical: - Allergies: 14:53 No Known Allergies; hb - Home Meds: 14:53 Edarvi [Active]; hb - PMHx: 14:53 GERD; Hyperlipidemia; Hypertension; hb - Immunization history:: Client reports receiving the 2nd dose of the Covid vaccine, Flu vaccine is up to date. - Social history:: Smoking status: Patient denies any tobacco usage or history of. Screenin:34 Abuse screen: Denies threats or abuse. Denies injuries from another. Nutritional tc5 screening: No deficits noted. Tuberculosis screening: No symptoms or risk factors identified. Fall Risk None identified. Assessment: 15:31 Pain: Complains of pain in right upper quadrant. GI: pt reports he ate tacos today, tc5 should not have, increased his pain. states he has been seeing a doctor and possibly has bile duct blockage. 17:17 General: family brought food for pt to eat, pt informed that he is NPO.. tc5 Vital Signs: 14:51 BP 138 / 90; Pulse 91; Resp 16; Temp 98.0(O); Pulse Ox 98% on R/A; Weight 113.4 kg; hb Height 6 ft. 2 in. (187.96 cm); Pain 8/10; 17:42 BP 136 / 103; Pulse 70; Resp 16; Pain 4/10; tc5 14:51 Body Mass Index 32.10 (113.40 kg, 187.96 cm) hb ED Course: 14:47 Patient arrived in ED. ds1 14:52 Triage completed. hb 14:53 Arm band placed on. hb 14:56 Greer Dowd [facility]-C [facility]. kb 14:56 Yfn Kirk MD is Attending Physician. kb 14:57 Sirena Quintanilla RN is Primary Nurse. tc5 15:12 Inserted saline lock: 20 gauge in right forearm, using aseptic technique. Blood mt collected. 17:18 Cholangiogram In Process Unspecified. EDMS 17:43 Basic Metabolic Panel Sent. tc5 17:43 CBC with Diff Sent. tc5 17:43 Hepatic Function Sent. tc5 18:07 IV discontinued, intact, bleeding controlled, No redness/swelling at site. Pressure tc5 dressing applied. Administered Medications: 15:26 Drug: morphine 4 mg Route: IVP; Site: right forearm; tc5 17:41 Follow up: Response: No adverse reaction; Pain is decreased tc5 15:26 Drug: Zofran (Ondansetron) 4 mg Route: IVP; Site: right forearm; tc5 17:41 Follow up: Response: No adverse reaction tc5 15:26 Drug: NS 0.9% 1000 ml Route: IV; Rate: 1000 ml; Site: right forearm; tc5 17:40 Follow up: IV Status: Completed infusion; IV Intake: 1000ml tc5 17:35 Drug: morphine 4 mg Route: IVP; Site: right antecubital; tc5 17:43 Follow up: Response: No adverse reaction tc5 17:35 Drug: Zofran (Ondansetron) 4 mg Route: IVP; Site: right antecubital; tc5 17:43 Follow up: Response: No adverse reaction tc5 Intake: 17:40 IV: 1000ml; Total: 1000ml. tc5 Outcome: 17:39 Discharge ordered by . kb 18:07 Patient left the ED. tc5 Signatures: Dispatcher [employer] EDMS Greer Dowd FNP-C FNP-Ckb Sanford, Demi ds1 Abiola Juarez RN RN hb Sidney, Tess mt Socorro, Sirena, RN RN tc5
--- NOTE | 2021-04-24 17:39 | EDPHYS ---
Physician Documentation [facility] Name: Sheng Coats Age: 50 yrs Sex: Male : 1970 Arrival Date: 04/24/2021 Time: 14:47 Bed 20 Private MD: ED Physician Yfn Kirk HPI: 04/24 16:32 This 50 yrs old Male presents to ER via Ambulatory with complaints of kb Abdominal Pain. 16:32 The patient presents with abdominal pain in the right upper quadrant. Onset: The kb symptoms/episode began/occurred this morning. The symptoms do not radiate. Associated signs and symptoms: none. The symptoms are described as constant. Modifying factors: The symptoms are alleviated by nothing, the symptoms are aggravated by food, pressure. Severity of pain: At its worst the pain was moderate severe in the emergency department the pain is unchanged. The patient has experienced similar episodes in the past. The patient has been recently seen by a physician:. Pt reports RUQ pain that has been an ongoing issue for months. Pt has been seeing Dr Garibay for this, had an upper GI, CT abd and US which have all been normal. Dr Garibay ordered a MRCP on Saturday, but pt states he was unable to get a hold of anyone in central scheduling to get it scheduled. States pt came on this morning around 0715 and has been getting worse throughout the day. Reports eating makes pain worse. . Historical: - Allergies: 14:53 No Known Allergies; hb - Home Meds: 14:53 Edarvi [Active]; hb - PMHx: 14:53 GERD; Hyperlipidemia; Hypertension; hb - Immunization history:: Client reports receiving the 2nd dose of the Covid vaccine, Flu vaccine is up to date. - Social history:: Smoking status: Patient denies any tobacco usage or history of. ROS: 16:32 Constitutional: Negative for fever, chills, and weight loss. kb 16:32 Abdomen/GI: Positive for abdominal pain, Negative for nausea, vomiting, and diarrhea. 16:32 All other systems are negative. Exam: 16:32 Constitutional: This is a well developed, well nourished patient who is awake, alert, kb and in no acute distress. Head/Face: Normocephalic, atraumatic. ENT: Moist Mucous membranes Respiratory: Respirations even and unlabored. No increased work of breathing, no retractions or nasal flaring. Skin: Warm, dry with normal turgor. Normal color. MS/ Extremity: Pulses equal, no cyanosis. Neurovascular intact. Full, normal range of motion. Neuro: Awake and alert, GCS 15, oriented to person, place, time, and situation. Moves all extremities. Normal gait. Psych: Awake, alert, with orientation to person, place and time. Behavior, mood, and affect are within normal limits. 16:32 Abdomen/GI: Inspection: abdomen appears normal, Bowel sounds: normal, Palpation: soft, in all quadrants, nontender, in the left upper quadrant, right lower quadrant and left lower quadrant, moderate abdominal tenderness, in the right upper quadrant. Vital Signs: 14:51 BP 138 / 90; Pulse 91; Resp 16; Temp 98.0(O); Pulse Ox 98% on R/A; Weight 113.4 kg; hb Height 6 ft. 2 in. (187.96 cm); Pain 8/10; 17:42 BP 136 / 103; Pulse 70; Resp 16; Pain 4/10; tc5 14:51 Body Mass Index 32.10 (113.40 kg, 187.96 cm) hb MDM: 14:57 Patient medically screened. kb 16:32 Data reviewed: vital signs, nurses notes. Data interpreted: Pulse oximetry: on room air kb is 98 %. Interpretation: normal. 17:26 Differential diagnosis: cholecystitis, Cholelithiasis, non-specific abd pain. kb 17:38 Counseling: I had a detailed discussion with the patient and/or guardian regarding: the kb historical points, exam findings, and any diagnostic results supporting the discharge/admit diagnosis, lab results, radiology results, the need for outpatient follow up, a hand laster, to return to the emergency department if symptoms worsen or persist or if there are any questions or concerns that arise at home. 04/24 14:57 Order name: Basic Metabolic Panel kb 04/24 14:57 Order name: CBC with Diff kb 04/24 14:57 Order name: Hepatic Function kb 04/24 14:57 Order name: Lipase; Complete Time: 16:30 kb 04/24 14:57 Order name: Basic Metabolic Panel; Complete Time: 16:30 EDMS 04/24 14:57 Order name: CBC with Automated Diff; Complete Time: 16:11 EDMS 04/24 14:57 Order name: IV Saline Lock; Complete Time: 15:12 kb 04/24 14:58 Order name: Liver (Hepatic) Function; Complete Time: 16:30 EDMS 04/24 15:05 Order name: Cholangiogram; Complete Time: 17:38 EDMS 04/24 14:57 Order name: Labs collected and sent; Complete Time: 15:12 kb Administered Medications: 15:26 Drug: morphine 4 mg Route: IVP; Site: right forearm; tc5 17:41 Follow up: Response: No adverse reaction; Pain is decreased tc5 15:26 Drug: Zofran (Ondansetron) 4 mg Route: IVP; Site: right forearm; tc5 17:41 Follow up: Response: No adverse reaction tc5 15:26 Drug: NS 0.9% 1000 ml Route: IV; Rate: 1000 ml; Site: right forearm; tc5 17:40 Follow up: IV Status: Completed infusion; IV Intake: 1000ml tc5 17:35 Drug: morphine 4 mg Route: IVP; Site: right antecubital; tc5 17:43 Follow up: Response: No adverse reaction tc5 17:35 Drug: Zofran (Ondansetron) 4 mg Route: IVP; Site: right antecubital; tc5 17:43 Follow up: Response: No adverse reaction tc5 Disposition: 18:27 Co-signature as Attending Physician, Yfn Kirk MD I agree with the assessment and rn plan of care. Attestation: The patient's history, exam findings, diagnostics, and a summary of any interventions or procedures was reviewed in detail with Greer MCKEON. Disposition Summary: 04/24/21 17:39 Discharge Ordered Location: Home kb Condition: Stable kb Diagnosis - Upper abdominal pain, unspecified kb Followup: kb - With: Emergency Department - When: As needed - Reason: Worsening of condition Followup: kb - With: Private Physician - When: 2 - 3 days - Reason: Recheck today's complaints, Continuance of care, Re-evaluation by your physician Discharge Instructions: - Discharge Summary Sheet kb - Abdominal Pain, Adult, [id number] kb Forms: - Medication Reconciliation Form kb - Thank You Letter kb - Antibiotic Education kb - Prescription Opioid Use kb - Work release form ss Prescriptions: - dicyclomine 20 mg Oral Tablet - take 1 tablet by ORAL route 4 times per day As needed; 20 tablet; Refills: 0, kb Product Selection Permitted Signatures: Dispatcher [employer] Greer Pruitt, JAIMEC SHAY-Yfn Harris MD MD rn Baxter, Heather RN RN Sirena Quintanilla RN RN tc5
[2021-04-24 18:18] VITALS: TEMP 98; O2SAT 98
[2021-04-24 18:19] VITALS: BP 136/103
== END 2021-04-24 18:07 | disposition home or self-care (01) ==
LOC: ER 14:45
DX: R10.11 Right upper quadrant pain (principal); I10 Essential (primary) hypertension; K21.9 Gastro-esophageal reflux disease without esophagitis
CPT/HCPCS: 96361; 85025; 80048; 36415; 80076; 83690; 74181; 96375; 96374; 99284; J7030; J2405 ×2

== ENCOUNTER 2021-07-12 13:06 | Inpatient (IN) | payer BC ==
--- OUTSIDE RECORDS SUMMARY | 2021-07-12 13:10 | XMS REPORT | Continuity of Care Document ---
:1970 Author Organization [facility] t Address [address] [place] [address] Care Team Providers Name Role Phone FOUND, NOT Primary Care Physician Unavailable Radiology Attending Clinician Unavailable RADIOLOGY Attending Clinician Unavailable Franco HANLEY Attending Clinician Unavailable Payers Payer Name Policy Type Policy Number Effective Date Expiration Date S ource Advance Directives Directive Decision Effective Date Termination Date Comments Sour ce Yes N/A [facility] Condition Condition Condition Status Onset Resolution Last Treating Co mments Source Name Details Category Date Date Treatment Clinician Date Problem Condition [facility] Anxiety Anxiety Problem [facility] Essential Essential Problem Active [facility] - hypertensi hypertensi Me moria on [facility] l [facility] Clinics Primary Primary Problem Active [facility] Sleep Sleep Problem Active [facility] disturbanc disturbanc [facility] Hypertrigl Hypertrigl Problem Active [facility] yceridemia yceridemia Christina [facility] Erectile Erectile Problem Active [facility] dysfunctio dysfunctio Christina kes - n, n, Memoria unspecifie unspecifie l d erectile d erectile Ou tpati dysfunctio dysfunctio en t n type n type Clinics Allergies, Adverse Reactions, Alerts Allergy Allergy Status Severity Reaction(s) Onset Inactive Treating Comm ents Source Name Type Date Date Clinician NO KNOWN Drug Active [facility] ALLERGIE Class [facility] of [facility] Social History Social Habit Start Date Stop Date Quantity Comments Source Exposure to Not sure [facility] SARS-CoV-2 (event) Medica l Branch Sex Assigned At [birth year] Male [facility] 00:00:00 00:00:00 Smoking Status Start Date Stop Date Source Unknown if ever smoked [facility] Medications Ordered Filled Start Stop Current Ordering Indication Dosage Frequency Signature Comments Components Source Medication Medication Date Date Medication? Clinician (SIG) Name Name Ondansetron 2020-0 No 4mg Every 4 - C [facility] Hcl (Zofran 4-18 6 Hours as S Odt) 4 Mg 15:49: needed for He alth TAB.RAPDIS 00 Nausea Tramadol 2020-0 No 50mg Every 6 ELKE U Hcl 4-18 Hours as S (Ultram) 50 15:49: needed for Health Mg TAB 00 Severe Pain(7-10) Ondansetron 2020-0 No 4mg [facility] U Hcl (Zofran 4-18 S - Odt) 4 Mg 15:49: [place] TAB.RAPDIS 00 [facility] Tramadol 2020-0 No 50mg [facility] Hcl 4-18 S - (Ultram) 50 15:49: [place] Mg TAB 00 [facility] Edarbi Edarbi Yes Keiko not [facility] Tricor Tricor Yes Keiko [address] [facility] with food [facility] Tramadol-Ac Tramadol-Ac Yes Keiko (Schedule [facility] etaminophen etaminophen [facility] IV [facility]) [facility] - TAKE 1 Memoria TABLET BY l MOUTH Outpati EVERY 4 ent HOURS Clinics NEEDED FOR PAIN Acetaminoph Acetaminoph Yes Keiko (Schedule [facility] en-Codeine en-Codeine [facility] III [facility]) [facility] - #3 #3 TAKE 1 Memoria TABLET BY l MOUTH Outpati EVERY 4 ent HOURS Clinics NEEDED FOR PAIN Tricor Tricor Yes Keiko [address] [facility] Zolpidem Zolpidem Yes Keiko (Schedule [facility] Tartrate Tartrate [facility]) Christina kes - TAKE 1 Memoria TABLET BY l MOUTH AT Outpati BEDTIME ent Clinics Vital Signs Vital Name Observation Time Observation Value Comments Source Heart Rate 2019-11-07 16:01:00 94 /min [facility] Respiratory rate 2019-11-07 16:01:00 20 /min [facility] BP Systolic 2019-11-07 16:01:00 145 mm[Hg] [facility] BP Diastolic 2019-11-07 16:01:00 92 mm[Hg] [facility] Heart Rate 2019-11-07 14:33:00 83 /min [facility] Respiratory rate 2019-11-07 14:33:00 18 /min [facility] BP Systolic 2019-11-07 14:33:00 142 mm[Hg] [facility] BP Diastolic 2019-11-07 14:33:00 93 mm[Hg] [facility] Body Temperature 2019-11-07 11:30:00 98.4 [degF] [facility] HRBoss Procedures Procedure Date / Time Performing Clinician Source Performed US ABDOMEN COMPLETE 2020-10-12 21:21:57 Mohit Kee [facility] PATIENT FINANCIAL 2020-10-12 20:48:25 Doctor Unassigned, [facility] POLICY [facility] NO SHOW OR MISSED 2020-10-12 20:48:10 Doctor Unassigned, [facility] APPOINTMENT POLICY [facility] ACKNOWLEDGEMENT NOTICE OF PRIVACY 2020-10-12 20:47:56 Doctor Unassigned, [facility] PRACTICES [facility] CONSENT/REFUSAL FOR 2020-10-12 20:47:43 Doctor Jessica, [facility] DIAGNOSIS AND TREATMENT [facility] ASSIGNMENT OF BENEFITS 2020-10-12 20:47:29 Doctor Unassigned, [facility] ECG (electrocardiogram) 2019-11-07 00:00:00 [facility] HRBoss Computed tomography of 2019-11-07 00:00:00 JRKICKZ abdomen and pelvis with contrast X-ray of chest, single 2019-11-07 00:00:00 JRKICKZ view Ultrasound, abdomen, 2019-11-07 00:00:00 [facility] limited Plan of Care Planned Activity Planned Date Details Comments Source Goal Patient referral [code MESHA Bergeron = [id number] ] [facility] al Instructions Biliary Colic [facility] En[facility]ters Start End Encounter Admission Attending Care Care Encounter Source Date/Time Date/Time Type Type Clinicians Facility Department ID 2020-10-12 2020-10-12 Hospital Radiology [facility] [id number] Univers 15:30:00 23:59:00 Encounter [place] [id number] ity Alonso [id number] [facility] [id number] [place] [id number] Branch 2020-10-12 2020-10-12 Outpatient R RADIOLOGY [facility] [id number] Univers 00:00:00 00:00:00 ity of [facility] 2020-02-12 2020-02-12 [facility] [id number] 16:10:00 16:10:00 [facility] Medicine Outpati ent Clinics 2019-12-15 2019-12-15 [facility] [id number] 13:20:00 13:20:00 [facility] Medicine Outpati ent [facility] 2019-11-07 2019-11-07 Departed ANDER Bergeron [id number] [facility] 11:18:00 16:02:[address] 2019-11-07 2019-11-07 Departed ANDER Bergeron [id number] [facility] 11:18:00 16:02:[address] 2019-11-07 2019-11-07 Emergency ER NADEEN HANLEY [id number] [facility] 11:18:00 11:18:00 DEBRA [id number] [facility] 2018-10-06 2018-10-06 [facility] [id number] 13:45:00 13:45:00 [facility] Medicine Medicine Outpati ent Clinics 2018-09-26 2018-09-26 [facility] [id number] 09:45:00 09:45:00 [facility] Medicine Outpati ent Clinics 2018-08-14 2018-08-14 [facility] [id number] 13:15:00 13:15:00 [facility] 2018-03-17 2018-03-17 Outpatient Jerry Adams [id number] 14:30:00 14:30:00 t [facility] 2018-01-09 2018-01-09 Outpatient Jerry Adams [id number] 14:30:00 14:30:00 [facility] ent Clinics Results Test Description Test Time Test Results Result Source Comments Comments US ABDOMEN 2020-09-20 Diffusely echogenic Univ ersity of COMPLETE 4 liver probably [facility] rogelio 21:29:22 represents moderate Branc h (at least)steatosis. No focal hepatic lesions identified. Nonvisualized gallbladder. Correlate with history of cholecystectomy. RIGHT UPPER QUADRANT ABDOMINAL SONOGRAM TECHNIQUE: Grayscale and limited color Doppler images of the right upperquadrant of the abdomen were obtained. INDICATION: Right upper quadrant pain COMPARISON: Not available FINDINGS: Liver is diffusely steatotic with essentially normal hepatic echotexture.Normal hepatic surface contour. The liver measures 17.1 cm in craniocaudaldimension. No discernible focal hepatic lesion identified. Although,sensitivity is decreased related to steatosis (particularly in deep liverfields). Main portal vein is patent with normal hepatopedal flow. Main portal veinmeasures 1.2 cm in AP diameter measured at marcelino hepatis. Gallbladder is nonvisualized, presumably surgically absent. Proximal commonbile duct measures 0.5 cm in AP diameter marcelino hepatis, normal. Nodiscernible intrahepatic biliary ductal dilatation. Right kidney measures 13.1 x 5.7 x 6.4 cm. The left kidney measures 13.1 x6.7 x 5.8 cm. No hydronephrosis or discernible nephrolithiasis. Enlarged spleen measures 15.2 cm in craniocaudal dimension. Revised portions of the pancreatic head and proximal body appearunremarkable. More distal pancreas is obscured by bowel gas. Proximalabdominal aorta measures 2.4 cm in AP diameter, normal. No abnormalaneurysmal dilatation in the mid or distal abdominal aorta. Visualized portions of the IVC appear unremarkable (intrahepatic portions). [facility], Radiant Results Inft User - 10/12/2020 4:30 PM CDTRIGHT UPPER QUADRANT ABDOMINAL SONOGRAMTECHNIQUE: Grayscale and limited color Doppler images of the right upperquadrant of the abdomen were obtained.INDICATION: Right upper quadrant painCOMPARISON: Not availableFINDINGS:Live r is diffusely steatotic with essentially normal hepatic echotexture.Normal hepatic surface contour. The liver measures 17.1 cm in craniocaudaldimension. No discernible focal hepatic lesion identified. Although,sensitivity is decreased related to steatosis (particularly in deep liverfields). Main portal vein is patent with normal hepatopedal flow. Main portal veinmeasures 1.2 cm in AP diameter measured at marcelino hepatis.Gallbladder is nonvisualized, presumably surgically absent. Proximal commonbile duct measures 0.5 cm in AP diameter marcelino hepatis, normal. Nodiscernible intrahepatic biliary ductal dilatation.Right kidney measures 13.1 x 5.7 x 6.4 cm. The left kidney measures 13.1 x6.7 x 5.8 cm. No hydronephrosis or discernible nephrolithiasis.Enlarg ed spleen measures 15.2 cm in craniocaudal dimension.Revised portions of the pancreatic head and proximal body appearunremarkable. More distal pancreas is obscured by bowel gas. Proximalabdominal aorta measures 2.4 cm in AP diameter, normal. No abnormalaneurysmal dilatation in the mid or distal abdominal aorta.Visualized portions of the IVC appear unremarkable (intrahepatic portions).IMPRESSIONDi ffusely echogenic liver probably represents moderate (at least)steatosis.No focal hepatic lesions identified.Nonvisualiz ed gallbladder. Correlate with history of cholecystectomy. Whole blood cardiac troponin I measurement (mass/volume) 11:52:00 Test Item Value Reference Range Interpretation Comme [facility] Bedside Troponin I (test code = 12574-9) 0.00 ng/mL 0.00-0.06 [facility] blood cardiac troponin I measurement (mass/volume) 2019-11-07 11:52:00 Test Item Value Reference Range Interpretation Comments Bedside Troponin I (test code = 0.00 ng/mL 33082-6) [facility] U[facility] by Automated test [id number] 11:45:00 Test Item Value Reference Range Interpretation Comments Urine Specific [place] (test code = 1.006 1.005-1.030 51450-7) [facility] protein measurement by automated test strip (mass/volume) 2019-11-07 11:45:00 Test Item Value Reference Range Interpretation Comments Urine Protein (test code = Negative mg/dL Negative * 06730-1) [facility] glucose measurement by automated test strip (mass/volume) 2019-11-07 11:45:00 Test Item Value Reference Range Interpretation Comments Urine Glucose (UA) (test code Negative mg/dL Negative * = 20765-5) [facility] ketones measurement by automated test strip (mass/volume) 2019-11-07 11:45:00 Test Item Value Reference Range Interpretation Comments Urine Ketones (test code = Negative mg/dL Negative * 83913-2) [facility] erythrocytes count by automated test strip (number/volume) 2019-11-07 11:45:00 Test Item Value Reference Range Interpretation Comments Urine Occult Blood (test code = Negative Negative * 65595-9) [facility] nitrite detection by automated test [id number] 11:45:00 Test Item Value Reference Range Interpretation Comments Urine Nitrite (test code = 93989-9) Negative Negative [facility] total bilirubin measurement by automated test strip (mass/volume)2019-11-07 11:45:00 Test Item Value Reference Range Interpretation Comments Urine Bilirubin (test code = Negative mg/dL Negative 92474-6) [facility]rine urobilinogen measurement by automated test strip (mass/volume)2019-11-07 11:45:00 Test Item Value Reference Range Interpretation Comments Urine Urobilinogen (test code Negative mg/dL 0.0-1.0 = 54430-6) [facility] leukocytes count by automated test strip (number/volume) 2019-11-07 11:45:00 Test Item Value Reference Range Interpretation Comments Urine Leukocyte Esterase Negative {Fransico}/uL Negative (test code = 95435-4) [facility] HealthMicroscopic examination of [id number] 11:45:00 Test Item Value Reference Range Interpretation Comments Microscopic Urinalysis (T) (test code Not Ind = 49957-8) [facility] comment 11:45:00 Test Item Value Reference Range Interpretation Comments Urinalysis Comment (test * See_Comment [A utomated message] The code = 8262-8) system which generated this result tra nsmitted reference range : *. The reference range was not used to interpr et this result as normal/abnormal . [facility] HealthSerum or plasma sodium measurement (moles/volume)2019-11-07 11:45:00 Test Item Value Reference Range Interpretation Comments Sodium Level (test code = 2951-2) 131 mmol/L 136-145 [facility] or plasma potassium measurement (moles/volume)2019-11-07 11:45:00 Test Item Value Reference Range Interpretation Comments Potassium Level (test code = 4.8 mmol/L 3.5-5.1 2823-3) [facility] or plasma chloride measurement (moles/volume)2019-11-07 11:45:00 Test Item Value Reference Range Interpretation Comments Chloride Level (test code = 2075-0) 94 mmol/L 98-107 [facility] or plasma total carbon dioxide measurement (moles/volume) 2019-11-07 11:45:00 Test Item Value Reference Range Interpretation Comments Carbon Dioxide Level (test code = 25 mmol/L 2027-) [facility] or plasma anion gap determination (moles/volume)2019-11-07 11:45:00 Test Item Value Reference Range Interpretation Comments Anion Gap (test code = 08924-7) 17 03-08 [facility] or plasma urea nitrogen measurement (mass/volume)2019-11-07 11:45:00 Test Item Value Reference Range Interpretation Comments Blood Urea Nitrogen (test code = 14 mg/dL 04-114-0) [facility] or plasma creatinine measurement (mass/volume)2019-11-07 11:45:00 Test Item Value Reference Range Interpretation Comments Creatinine (test code = 2160-0) 0.9 mg/dL 0.7-1.3 [facility] HealthGFR estimate [id number] 11:45:00 Test Item Value Reference Range Interpretation Comments Estimat Glomerular Filtration Rate 95 73-125 (test code = 91383-2) [facility] HealthSerum or plasma urea nitrogen/creatinine mass [id number] 11:45:00 Test Item Value Reference Range Interpretation Comments BUN/Creatinine Ratio (test code = 16 3097-3) [facility]um or plasma glucose measurement (mass/volume)2019-11-07 11:45:00 Test Item Value Reference Range Interpretation Comments Glucose Level (test code = 2345-7) 100 mg/dL 60-100 [facility] HealthOsmolality of Serum or Plasma by [id number] 11:45:00 Test Item Value Reference Range Interpretation Comments Calculated Osmolality (test code 263 mosm/kg = 26702-8) [facility]um or plasma calcium measurement (mass/volume)2019-11-07 11:45:00 Test Item Value Reference Range Interpretation Comments Calcium Level (test code = 61249-1) 8.4 mg/dL 8.4-10.2 [facility] or plasma total bilirubin measurement (mass/volume) 2019-11-07 11:45:00 Test Item Value Reference Range Interpretation Comments Total Bilirubin (test code = 0.7 mg/dL 0.2-1.2 1975-2) [facility] Health[facility]um or plasma aspartate aminotransferase measurement (enzymatic activity/volume)2019-11-07 11:45:00 Test Item Value Reference Range Interpretation Comments Aspartate Amino Transf (AST/SGOT) 81 U/L 5-34 (test code = 1920-8) [facility] Health[facility]um or plasma alanine aminotransferase measurement (enzymatic activity/volume)2019-11-07 11:45:00 Test Item Value Reference Range Interpretation Comments Alanine Aminotransferase (ALT/SGPT) 82 U/L 0-55 (test code = 1742-6) [facility] Health[facility]um or plasma protein measurement (mass/volume)2019-11-07 11:45:00 Test Item Value Reference Range Interpretation Comments Total Protein (test code = 2885-2) 7.5 g/dL 6.4-8.3 [facility] Health[facility]um or plasma albumin measurement (mass/volume)2019-11-07 11:45:00 Test Item Value Reference Range Interpretation Comments Albumin (test code = 1751-7) 4.2 g/dL 3.5-5.0 [facility] HealthSerum globulin measurement by calculation (mass/volume)2019-11-07 11:45:00 Test Item Value Reference Range Interpretation Comments Globulin (test code = 78027-5) 3.3 g/dL [facility] HealthSerum or plasma albumin/globulin mass [id number] 11:45:00 Test Item Value Reference Range Interpretation Comments Albumin/Globulin Ratio (test code = 1.3 1759-0) [facility] HealthSerum or plasma alkaline phosphatase measurement (enzymatic activity/volume)2019-11-07 11:45:00 Test Item Value Reference Range Interpretation Comments Alkaline Phosphatase (test code = 55 U/L 40-150 6768-6) [facility] HealthSerum or plasma lipase measurement (enzymatic activity/volume) 2019-11-07 11:45:00 Test Item Value Reference Range Interpretation Comments Lipase (test code = 3040-3) 45 U/L 8-78 [facility] HealthAutomated blood leukocyte count (number/volume)2019-11-07 11:45:00 Test Item Value Reference Range Interpretation Comments White Blood Count (test code = 5.0 10*3/uL 4.5-11.5 6690-2) [facility] HealthBlood erythrocytes automated count (number/volume)2019-11-07 11:45:00 Test Item Value Reference Range Interpretation Comments Red Blood Count (test code = 4.30 10*6/uL 4.4-6.2 789-8) [facility]Blood hemoglobin measurement (mass/volume)2019-11-07 11:45:00 Test Item Value Reference Range Interpretation Comments Hemoglobin (test code = 718-7) 14.2 g/dL 13.0-17.5 [facility] HealthAutomated blood hematocrit (volume fraction)2019-11-07 11:45:00 Test Item Value Reference Range Interpretation Comments Hematocrit (test code = 4544-3) 39.4 % 39.0-52.5 [facility] HealthAutomated erythrocyte mean corpuscular volume (MCV) measurement 2019-11-07 11:45:00 Test Item Value Reference Range Interpretation Comments Mean Corpuscular Volume (test code = 91.6 fL 80-94 787-2) [facility] HealthAutomated erythrocyte mean corpuscular hemoglobin (mass per erythrocyte)2019-11-07 11:45:00 Test Item Value Reference Range Interpretation Comments Mean Corpuscular Hemoglobin (test 33.0 pg 27.0-33.0 code = 785-6) [facility] HealthAutomated erythrocyte mean corpuscular hemoglobin concentration measurement (mass/[id number] 11:45:00 Test Item Value Reference Range Interpretation Comments Mean Corpuscular Hemoglobin Concent 36.0 g/dL 33.0-37.0 (test code = 786-4) [facility] HealthAutomated erythrocyte distribution width [id number] 11:45:00 Test Item Value Reference Range Interpretation Comments Red Cell Distribution Width (test code 11.8 % 10.7-14.5 = 788-0) [facility] HealthAutomated blood platelet count (count/volume)2019-11-07 11:45:00 Test Item Value Reference Range Interpretation Comments Platelet Count (test code = 139 10*3/uL 150-450 777-3) [facility] HealthAutom[facility] blood platelet mean volume [id number] 11:45:00 Test Item Value Reference Range Interpretation Comments Mean Platelet Volume (test code = 8.0 fL 5.7-10.7 85210-0) [facility] HealthAutomated blood neutrophil count as percentage of total [id number] 11:45:00 Test Item Value Reference Range Interpretation Comments Neutrophils (%) (Auto) (test code = 57 % 47-75 770-8) [facility] HealthAutomated blood lymphocyte count as percentage of total xreldqohsb7119-64-54 11:45:00 Test Item Value Reference Range Interpretation Comments Lymphocytes (%) (Auto) (test code = 28 % 25-44 736-9) [facility] HealthAutomated blood monocyte count as percentage of total leukocytes 2019-11-07 11:45:00 Test Item Value Reference Range Interpretation Comments Monocytes (%) (Auto) (test code = 13 % 3-10 5905-5) [facility] HealthAutomated blood eosinophil count as percentage of total [id number] 11:45:00 Test Item Value Reference Range Interpretation Comments Eosinophils (%) (Auto) (test code = 2 % 0-7 713-8) [facility]Autom[facility] blood basophil count as percentage of total leukocytes 2019-11-07 11:45:00 Test Item Value Reference Range Interpretation Comments Basophils (%) (Auto) (test code = 0 % 0-1 706-2) [facility] HealthAutomated blood neutrophil count (number/volume)2019-11-07 11:45:00 Test Item Value Reference Range Interpretation Comments Neutrophils # (Auto) (test code = 2.8 10*3/uL 1.3-6.7 751-8) [facility] HealthAutomated blood lymphocyte count (number/volume)2019-11-07 11:45:00 Test Item Value Reference Range Interpretation Comments Lymphocytes # (Auto) (test code = 1.4 10*3/uL 1.4-4.1 731-0) [facility] automated count (number/volume)2019-11-07 11:45:00 Test Item Value Reference Range Interpretation Comments Monocytes # (Auto) (test code = 0.6 10*3/uL 0-1.3 742-7) [facility] AdministrationAutom[facility] blood eosinophil [id number] 11:45:00 Test Item Value Reference Range Interpretation Comments Eosinophils # (Auto) (test code = 0.1 10*3/uL 0-0.8 711-2) [facility] AdministrationAutom[facility] basophil count (number/volume)2019-11-07 11:45:00 Test Item Value Reference Range Interpretation Comments Basophils # (Auto) (test code = 0.0 10*3/uL 0-0.1 704-7) [facility] comment [id number] 11:45:00 Test Item Value Reference Range Interpretation Comments Manual Differential (test code = Not Ind 8265-1) [facility] AdministrationUrinalysis specimen collection [id number] 11:45:00 Test Item Value Reference Range Interpretation Comments Urine Source (test code = 29123-9) URINE [facility] AdministrationColor of Urine by [id number] 11:45:00 Test Item Value Reference Range Interpretation Comments Urine Color (test code = 67447-0) Lt Yellow Yel-Cher * [facility] HealthUrine clarity [id number] 11:45:00 Test Item Value Reference Range Interpretation Comments Urine Appearance (test code = 80466-3) Clear Clear * [facility] HealthUrine pH measurement by automated test [id number] 11:45:00 Test Item Value Reference Range Interpretation Comments Urine pH (test code = 76891-7) 5.0 5.0-8.0 [facility] AdministrationAutomated blood eosinophil [id number] 11:45:00 Test Item Value Reference Range Interpretation Comments Eosinophils # (Auto) (test code = 0.1 10*3/uL 711-2) [facility] bas[facility] count (number/volume)2019-11-07 11:45:00 Test Item Value Reference Range Interpretation Comments Basophils # (Auto) (test code = 0.0 10*3/uL 704-7) [facility] comment 11:45:00 Test Item Value Reference Range Interpretation Comments Manual Differential (test code = Not Ind 8265-1) [facility] CenterUrinalysis specimen collection method 2019-11-07 11:45:00 Test Item Value Reference Range Interpretation Comments Urine Source (test code = 50519-1) URINE [facility] CenterColor of Urine by [id number] 11:45:00 Test Item Value Reference Range Interpretation Comments Urine Color (test code = 38165-6) Lt Yellow [facility] clarity [id number] 11:45:00 Test Item Value Reference Range Interpretation Comments Urine Appearance (test code = 45561-9) Clear [facility] pH measurement by automated test strip 2019-11-07 11:45:00 Test Item Value Reference Range Interpretation Comments Urine pH (test code = 82697-1) 5.0 [facility] test [id number] 11:45:00 Test Item Value Reference Range Interpretation Comments Urine Specific [place] (test code = 1.006 51405-1) [facility] protein measurement by automated test strip (mass/volume)2019-11-07 11:45:00 Test Item Value Reference Range Interpretation Comments Urine Protein (test code = Negative mg/dL 78319-7) [facility] glucose measurement by automated test strip (mass/volume)2019-11-07 11:45:00 Test Item Value Reference Range Interpretation Comments Urine Glucose (UA) (test code Negative mg/dL = 97667-0) [facility] ketones measurement by automated test strip (mass/volume)2019-11-07 11:45:00 Test Item Value Reference Range Interpretation Comments Urine Ketones (test code = Negative mg/dL 54759-4) [facility] erythrocytes count by automated test strip (number/volume)2019-11-07 11:45:00 Test Item Value Reference Range Interpretation Comments Urine Occult Blood (test code = Negative 14523-9) [facility] test [id number] 11:45:00 Test Item Value Reference Range Interpretation Comments Urine Nitrite (test code = 24237-8) Negative [facility] total bilirubin measurement by automated test strip (mass/volume)2019-11-07 11:45:00 Test Item Value Reference Range Interpretation Comments Urine Bilirubin (test code = Negative mg/dL 51379-8) [facility] urobilinogen measurement by automated test strip (mass/volume)2019-11-07 11:45:00 Test Item Value Reference Range Interpretation Comments Urine Urobilinogen (test code Negative mg/dL = 96204-6) [facility] leukocytes count by automated test strip (number/volume)2019-11-07 11:45:00 Test Item Value Reference Range Interpretation Comments Urine Leukocyte Esterase Negative {Fransico}/uL (test code = 79672-1) [facility]sc[facility] examination of [id number] 11:45:00 Test Item Value Reference Range Interpretation Comments Microscopic Urinalysis (T) (test code Not Ind = 99659-9) [facility] 11:[facility]:00 Test Item Value Reference Range Interpretation Comments Urinalysis Comment (test code = 8262-8) * [facility] sodium measurement (moles/volume)2019-11-07 11:45:00 Test Item Value Reference Range Interpretation Comments Sodium Level (test code = 2951-2) 131 mmol/L [facility] potassium measurement (moles/volume)2019-11-07 11:45:00 Test Item Value Reference Range Interpretation Comments Potassium Level (test code = 4.8 mmol/L 2823-3) [facility] chloride measurement (moles/volume)2019-11-07 11:45:00 Test Item Value Reference Range Interpretation Comments Chloride Level (test code = 2075-0) 94 mmol/L [facility] total carbon dioxide measurement (moles/volume)2019-11-07 11:45:00 Test Item Value Reference Range Interpretation Comments Carbon Dioxide Level (test code = 25 mmol/L 2028-03) [facility] or plasma anion gap determination (moles/volume)2019-11-07 11:45:00 Test Item Value Reference Range Interpretation Comments Anion Gap (test code = 17896-8) 17 [facility] urea nitrogen measurement (mass/volume)2019-11-07 11:45:00 Test Item Value Reference Range Interpretation Comments Blood Urea Nitrogen (test code = 14 mg/dL 3094-0) [facility] or plasma creatinine measurement (mass/volume)2019-11-07 11:45:00 Test Item Value Reference Range Interpretation Comments Creatinine (test code = 2160-0) 0.9 mg/dL [facility] estimate [id number] 11:45:00 Test Item Value Reference Range Interpretation Comments Estimat Glomerular Filtration Rate 95 (test code = 04366-8) [facility] or plasma urea nitrogen/creatinine mass [id number] 11:45:00 Test Item Value Reference Range Interpretation Comments BUN/Creatinine Ratio (test code = 16 3097-3) [facility] or plasma glucose measurement (mass/volume)2019-11-07 11:45:00 Test Item Value Reference Range Interpretation Comments Glucose Level (test code = 2345-7) 100 mg/dL [facility] CenterOsmolality of Serum or Plasma by calculation 2019-11-07 11:45:00 Test Item Value Reference Range Interpretation Comments Calculated Osmolality (test code 263 mosm/kg = 78829-2) [facility] or plasma calcium measurement (mass/volume)2019-11-07 11:45:00 Test Item Value Reference Range Interpretation Comments Calcium Level (test code = 66007-6) 8.4 mg/dL [facility] or plasma total bilirubin measurement (mass/volume)2019-11-07 11:45:00 Test Item Value Reference Range Interpretation Comments Total Bilirubin (test code = 0.7 mg/dL 1974-08) [facility] aspartate aminotransferase measurement (enzymatic activity/volume)2019-11-07 11:45:00 Test Item Value Reference Range Interpretation Comments Aspartate Amino Transf (AST/SGOT) 81 U/L (test code = 1920-8) [facility] or plasma alanine aminotransferase measurement (enzymatic activity/volume)2019-11-07 11:45:00 Test Item Value Reference Range Interpretation Comments Alanine Aminotransferase (ALT/SGPT) 82 U/L (test code = 1742-6) [facility] or plasma protein measurement (mass/volume)2019-11-07 11:45:00 Test Item Value Reference Range Interpretation Comments Total Protein (test code = 2885-2) 7.5 g/dL [facility] or plasma albumin measurement (mass/volume)2019-11-07 11:45:00 Test Item Value Reference Range Interpretation Comments Albumin (test code = 1751-7) 4.2 g/dL [facility] globulin measurement by calculation (mass/volume)2019-11-07 11:45:00 Test Item Value Reference Range Interpretation Comments Globulin (test code = 29937-1) 3.3 g/dL [facility] or plasma albumin/globulin mass ratio 2019-11-07 11:45:00 Test Item Value Reference Range Interpretation Comments Albumin/Globulin Ratio (test code = 1.3 1759-0) [facility] or plasma alkaline phosphatase measurement (enzymatic activity/volume)2019-11-07 11:45:00 Test Item Value Reference Range Interpretation Comments Alkaline Phosphatase (test code = 55 U/L 6768-6) [facility] or plasma lipase measurement (enzymatic activity/volume)2019-11-07 11:45:00 Test Item Value Reference Range Interpretation Comments Lipase (test code = 3040-3) 45 U/L [facility] CenterAutom[facility] blood leukocyte count (number/volume)2019-11-07 11:45:00 Test Item Value Reference Range Interpretation Comments White Blood Count (test code = 5.0 10*3/uL 6690-2) [facility] erythrocytes automated count (number/volume)2019-11-07 11:45:00 Test Item Value Reference Range Interpretation Comments Red Blood Count (test code = 4.30 10*6/uL 789-8) [facility] hemoglobin measurement (mass/volume) 2019-11-07 11:45:00 Test Item Value Reference Range Interpretation Comments Hemoglobin (test code = 718-7) 14.2 g/dL [facility] CenterAutomated blood hematocrit (volume fraction) 2019-11-07 11:45:00 Test Item Value Reference Range Interpretation Comments Hematocrit (test code = 4544-3) 39.4 % [facility] CenterAutomated erythrocyte mean corpuscular volume (MCV) [id number] 11:45:00 Test Item Value Reference Range Interpretation Comments Mean Corpuscular Volume (test code = 91.6 fL 787-2) [facility] CenterAutom[facility] erythrocyte mean corpuscular hemoglobin (mass per erythrocyte)2019-11-07 11:45:00 Test Item Value Reference Range Interpretation Comments Mean Corpuscular Hemoglobin (test 33.0 pg code = 785-6) [facility] CenterAutom[facility] erythrocyte mean corpuscular hemoglobin concentration measurement (mass/[id number] 11:45:00 Test Item Value Reference Range Interpretation Comments Mean Corpuscular Hemoglobin Concent 36.0 g/dL (test code = 786-4) [facility] width [id number] 11:45:00 Test Item Value Reference Range Interpretation Comments Red Cell Distribution Width (test code 11.8 % = 788-0) [facility] platelet count (count/volume) 2019-11-07 11:45:00 Test Item Value Reference Range Interpretation Comments Platelet Count (test code = 139 10*3/uL 777-3) [facility] CenterAutom[facility] blood platelet mean volume [id number] 11:45:00 Test Item Value Reference Range Interpretation Comments Mean Platelet Volume (test code = 8.0 fL 38647-8) [facility] neutrophil count as percentage of total [id number] 11:45:00 Test Item Value Reference Range Interpretation Comments Neutrophils (%) (Auto) (test code = 57 % 770-8) [facility] CenterAutom[facility] blood lymphocyte count as percentage of total [id number] 11:45:00 Test Item Value Reference Range Interpretation Comments Lymphocytes (%) (Auto) (test code = 28 % 736-9) [facility] CenterAutom[facility] blood monocyte count as percentage of total [id number] 11:45:00 Test Item Value Reference Range Interpretation Comments Monocytes (%) (Auto) (test code = 13 % 5905-5) [facility] CenterAutom[facility] blood eosinophil count as percentage of total [id number] 11:45:00 Test Item Value Reference Range Interpretation Comments Eosinophils (%) (Auto) (test code = 2 % 713-8) [facility] CenterAutom[facility] blood basophil count as percentage of total [id number] 11:45:00 Test Item Value Reference Range Interpretation Comments Basophils (%) (Auto) (test code = 0 % 706-2) [facility] CenterAutom[facility] blood neutrophil count (number/volume)2019-11-07 11:45:00 Test Item Value Reference Range Interpretation Comments Neutrophils # (Auto) (test code = 2.8 10*3/uL 751-8) [facility] CenterAutom[facility] blood lymphocyte count (number/volume)2019-11-07 11:45:00 Test Item Value Reference Range Interpretation Comments Lymphocytes # (Auto) (test code = 1.4 10*3/uL 731-0) [facility] monocytes automated count (number/volume)2019-11-07 11:45:00 Test Item Value Reference Range Interpretation Comments Monocytes # (Auto) (test code = 0.6 10*3/uL 742-7) [facility]
[2021-07-12] MEDS ORDERED: ONDANSETRON 4 MG/2 ML VIAL ONE (14:33)
[2021-07-12] MEDS ORDERED: FAMOTIDINE 20 MG/2 ML VIAL IV ONE (14:33)
[2021-07-12 14:41] LABS: Basophils % 0.4 % (0-1.3); Hematocrit 44.9 % (39.6-49.0); Lymphocytes % 10.4 % (15.3-44.8); MPV 7.1 fL (7.6-11.3); RBC Red Blood Cell Count 4.66 M/uL (4.33-5.43)
[2021-07-12 15:02] LABS: Albumin 3.2 g/dL (3.4-5.0); Bilirubin Direct 0.2 mg/dL (0-0.2); Bilirubin Total 1.4 mg/dL (0.2-1.0); Protein, Total 8.1 g/dL (6.4-8.2)
[2021-07-12 15:05] LABS: Potassium 4.3 mmol/L (3.5-5.1)
[2021-07-12] MEDS ORDERED: NA CHLORIDE 0.9% 1,000 ML ONE (15:41)
[2021-07-12] MEDS ORDERED: MORPHINE 4 MG/ML SYR ONE (15:41)
--- NOTE | 2021-07-12 16:37 | RAD REPORT ---
EXAM DESCRIPTION: CTAbdomen Pelvis W Contrast - 07/12/2021 4:20 pm CLINICAL HISTORY: ABD PAIN COMPARISON: Abdomen Pelvis W Contrast dated 12/15/2020; Abdomen Pelvis W Contrast dated 9; Abdomen Pelvis W Contrast dated 02/03/2018 TECHNIQUE: CT of the abdomen and pelvis was performed. All CT scans are performed using dose optimization technique as appropriate and may include automated exposure control or mA/KV adjustment according to patient size. FINDINGS: Lower chest: No acute abnormality. Liver: Hepatic steatosis. Low-density lesion in the hepatic dome is incompletely characterize. Biliary: No biliary ductal dilatation. Stomach: No significant focal abnormality. Duodenum: No significant focal abnormality. Pancreas: Diffuse peripancreatic stranding. Spleen: No significant abnormality. Adrenal: No suspicious lesions. Kidney/ureter: No hydronephrosis. No renal calculi. Retroperitoneum: No retroperitoneal adenopathy. Vascular: No aneurysm. Bowel: No significant focal abnormality. Peritoneum: No ascites or free air. No fluid collections identified. Bladder: Grossly unremarkable. Reproductive: No adnexal masses. Bones: No acute fracture. Other: n/a IMPRESSION: Findings consistent with interstitial edematous pancreatitis. No complicating features.
--- NOTE | 2021-07-12 17:52 | EDPHYS ---
Physician Documentation [facility] Name: Sheng Coats Age: 50 yrs Sex: Male : 1970 Arrival Date: 07/12/2021 Time: 13:07 Bed 20 Private MD: ED Physician Demetri Correa HPI: 07/13 08:02 This 50 yrs old Male presents to ER via Ambulatory with complaints of Abdominal Pain. kdr 08:04 The patient presents with abdominal pain in the epigastric area, in the upper abdomen. kdr Onset: The symptoms/episode began/occurred gradually, 2 day(s) ago. The symptoms do not radiate. Associated signs and symptoms: Pertinent positives: nausea and vomiting, Pertinent negatives: anorexia, blood in stools, chest pain, constipation, diarrhea, dysuria, fever, headache, hematuria, shortness of breath, testicular pain, vomiting blood. The symptoms are described as achy, burning, crampy, steady, vague. Modifying factors: The symptoms are alleviated by nothing, the symptoms are aggravated by drinking, food, movement. Severity of pain: At its worst the pain was moderate in the emergency department the pain is unchanged. The patient has experienced similar episodes in the past, multiple times, but today's symptoms are worse, more painful. The patient has not recently seen a physician. Patient presents with upper abdominal pain that began about 2 days ago. He has had nausea and vomiting during that same period of time bringing up ascitic bilious contents. He has had similar episodes in the past though not as severe as today. No specific etiology for the pain was given for the prior episodes. He has not been hospitalized for this issue previously. Patient does admit to a regular use of alcohol. He does not admit to a history of pancreatitis or alcohol related illnesses. Patient is otherwise stable and nontoxic-appearing on initial presentation. Historical: - Allergies: 07/12 13:52 No Known Allergies; iw - PMHx: 13:52 GERD; Hyperlipidemia; Hypertension; iw - PSHx: 13:52 shoulder; iw - Immunization history:: Client reports receiving the Alfredo \\T\\ Alfredo single-dose vaccine. - Social history:: Smoking status: Patient denies any tobacco usage or history of. Patient uses alcohol, occasionally. ROS: 07/13 08:04 Constitutional: Negative for fever, chills, and weight loss, Eyes: Negative for injury, kdr pain, redness, and discharge, ENT: Negative for injury, pain, and discharge, Neck: Negative for injury, pain, and swelling, Cardiovascular: Negative for chest pain, palpitations, and edema, Respiratory: Negative for shortness of breath, cough, wheezing, and pleuritic chest pain, Back: Negative for injury and pain, : Negative for injury, bleeding, discharge, and swelling, MS/Extremity: Negative for injury and deformity, Skin: Negative for injury, rash, and discoloration, Neuro: Negative for headache, weakness, numbness, tingling, and seizure activity. Psych: Negative for depression, anxiety, suicide ideation, homicidal ideation, and hallucinations, Allergy/Immunology: Negative for hives, rash, and allergies, Endocrine: Negative for neck swelling, polydipsia, polyuria, polyphagia, and marked weight changes, Hematologic/Lymphatic: Negative for swollen nodes, abnormal bleeding, and unusual bruising. Abdomen/GI: Positive for abdominal pain, nausea and vomiting, Negative for vomiting, diarrhea, constipation, abdominal cramps, abdominal distension, anorexia, dysphagia, hematemesis, black/tarry stool, rectal pain, rectal bleeding, bowel incontinence. Exam: 08:04 Constitutional: This is a well developed, well nourished patient who is awake, alert, kdr and in no acute distress. Head/Face: Normocephalic, atraumatic. Eyes: Pupils equal round and reactive to light, extra-ocular motions intact. Lids and lashes normal. Conjunctiva and sclera are non-icteric and not injected. Cornea within normal limits. Periorbital areas with no swelling, redness, or edema. Neck: Trachea midline, no thyromegaly or masses palpated, and no cervical lymphadenopathy. Supple, full range of motion without nuchal rigidity, or vertebral point tenderness. No Meningismus. Chest/axilla: Normal chest wall appearance and motion. Nontender with no deformity. No lesions are appreciated. Cardiovascular: Regular rate and rhythm with a normal S1 and S2. No gallops, murmurs, or rubs. Normal PMI, no JVD. No pulse deficits. Respiratory: Lungs have equal breath sounds bilaterally, clear to auscultation and percussion. No rales, rhonchi or wheezes noted. No increased work of breathing, no retractions or nasal flaring. Back: No spinal tenderness. No costovertebral tenderness. Full range of motion. Skin: Warm, dry with normal turgor. Normal color with no rashes, no lesions, and no evidence of cellulitis. MS/ Extremity: Pulses equal, no cyanosis. Neurovascular intact. Full, normal range of motion. Neuro: Awake and alert, GCS 15, oriented to person, place, time, and situation. Cranial nerves II-XII grossly intact. Motor strength 5/5 in all extremities. Sensory grossly intact. Cerebellar exam normal. Normal gait. Psych: Awake, alert, with orientation to person, place and time. Behavior, mood, and affect are within normal limits. 08:04 Abdomen/GI: Inspection: abdomen appears normal, Bowel sounds: diminished, in all quadrants, Palpation: soft, mild abdominal tenderness, in the epigastric area, right upper quadrant and left upper quadrant, Patient is diffusely tender but more epigastric area, rebound tenderness, is not appreciated, voluntary guarding, is not appreciated, involuntary guarding, is not appreciated. Vital Signs: 07/12 13:51 BP 144 / 110; Pulse 119; Resp 16; Temp 97.9; Pulse Ox 100% on R/A; Weight 113.4 kg; iw Height 6 ft. 2 in. (187.96 cm); Pain 9/10; 13:51 Body Mass Index 32.10 (113.40 kg, 187.96 cm) iw MDM: 17:52 Patient medically screened. kdr 07/13 08:04 Data reviewed: vital signs, nurses notes, lab test result(s), radiologic studies. kdr Counseling: I had a detailed discussion with the patient and/or guardian regarding: the historical points, exam findings, and any diagnostic results supporting the discharge/admit diagnosis, lab results, radiology results, the need for further work-up and treatment in the hospital. ED course: Patient with stable emergency department and tolerated interventions and evaluation well. Patient has not had a prior history of alcohol induced pancreatitis that is documented. He remained stable in the emergency department responded well to the interventions given. He was happy about the evaluation and plan for admission. Patient had no other focal or global concerns while in the ED.. 07/12 14:28 Order name: Basic Metabolic Panel; Complete Time: 15:39 iw 07/12 14:28 Order name: CBC with Diff; Complete Time: 14:51 iw 07/12 14:28 Order name: Hepatic Function; Complete Time: 15:39 iw 07/12 14:28 Order name: Lipase; Complete Time: 15:39 iw 07/12 17:50 Order name: ETOH Level; Complete Time: 08:14 kdr 07/12 17:52 Order name: Lipid Profile; Complete Time: 08:14 la1 07/12 15:40 Order name: CT Abd/Pelvis - IV Contrast Only; Complete Time: 17:30 kdr 07/12 18:05 Order name: SARS-COV-2 RT PCR (Document "Date of Onset" if Symptomatic); Complete Time: iw 08:14 07/12 21:19 Order name: LDL, Direct; Complete Time: 08:14 EDMS 07/12 14:28 Order name: IV Saline Lock; Complete Time: 14:37 iw 07/12 14:28 Order name: Labs collected and sent; Complete Time: 14:37 iw Administered Medications: 07/12 14:36 Drug: Zofran (Ondansetron) 4 mg Route: IVP; Site: right antecubital; 5 14:36 Drug: Pepcid (famotidine) 20 mg Route: IVP; Site: right antecubital; 5 15:44 Drug: morphine 4 mg Route: IVP; Site: right antecubital; 5 18:22 Drug: Dilaudid (HYDROmorphone) 1 mg Route: IVP; Site: right antecubital; 5 18:22 Drug: NS 0.9% 1000 ml Route: IV; Rate: 1000 ml; Site: right antecubital; 5 18:22 Drug: NS 0.9% 1000 ml Route: IV; Rate: 125 ml/hr; Site: right antecubital; 5 18:39 Drug: NS 0.9% 1000 ml Route: IV; Rate: 1 bolus; Site: right forearm; 5 18:39 Drug: ProTONIX (pantoprazole) 40 mg Route: IVP; Site: right antecubital; 5 Disposition Summary: 07/12/21 17:52 Hospitalization Ordered Hospitalization Status: Inpatient Admission kdr Provider: Lj Hernandez Location: Telemetry/MedSurg (Inpatient) kdr Condition: Fair kdr Problem: new kdr Symptoms: have improved kdr Bed/Room Type: Standard kdr Room Assignment: 204(07/12/21 19:41) eb1 Diagnosis - Abdominal pain, Generalized kdr - Other chronic pancreatitis kdr Forms: - Medication Reconciliation Form kdr - SBAR form kdr Signatures: Dispatcher [employer] Demetri Benavidez MD MD kdr Valentine Diaz RN RN iw Axel Quiroz, [employer] BUSINESS ANALYST-C [employer] BUSINESS ANALYST-Cla1 Meagan Arboleda RN RN eb1 Clover Keyes RN RN 5 Corrections: (The following items were deleted from the chart) 19:41 17:52 kdr eb1
--- NOTE | 2021-07-12 17:52 | ER ---
Nurse's Notes [facility] Name: Sheng Coats Age: 50 yrs Sex: Male : 1970 Arrival Date: 07/12/2021 Time: 13:07 Bed 20 Private MD: Diagnosis: Abdominal pain, Generalized;Other chronic pancreatitis Presentation: 07/12 13:51 Chief complaint: Patient states: mid abd pain radiating up into chest, has had previous iw issue with it , hx of GERD, unable to eat in two days because of the pain, +vomiting acid. Coronavirus screen: At this time, the client does not indicate any symptoms associated with coronavirus-19. Ebola Screen: Patient negative for fever greater than or equal to 101.5 degrees Fahrenheit, and additional compatible Ebola Virus Disease symptoms Patient denies exposure to infectious person. Patient denies travel to an Ebola-affected area in the 21 days before illness onset. No symptoms or risks identified at this time. Initial Sepsis Screen: Does the patient meet any 2 criteria? No. Patient's initial sepsis screen is negative. Does the patient have a suspected source of infection? No. Patient's initial sepsis screen is negative. Risk Assessment: Do you want to hurt yourself or someone else? Patient reports no desire to harm self or others. Onset of symptoms was July 10, 2021. 13:51 Method Of Arrival: Ambulatory iw 13:51 Acuity: MARY 3 iw Historical: - Allergies: 13:52 No Known Allergies; iw - PMHx: 13:52 GERD; Hyperlipidemia; Hypertension; iw - PSHx: 13:52 shoulder; iw - Immunization history:: Client reports receiving the Alfredo \\T\\ Alfredo single-dose vaccine. - Social history:: Smoking status: Patient denies any tobacco usage or history of. Patient uses alcohol, occasionally. Screenin:08 Abuse screen: Denies threats or abuse. Denies injuries from another. Nutritional jh5 screening: No deficits noted. Tuberculosis screening: No symptoms or risk factors identified. Fall Risk None identified. Assessment: 14:08 General: Appears uncomfortable, Behavior is calm, cooperative, quiet. Pain: Complains jh5 of pain in abdomen. GI: Bowel sounds present X 4 quads. Abd is soft. Vital Signs: 13:51 BP 144 / 110; Pulse 119; Resp 16; Temp 97.9; Pulse Ox 100% on R/A; Weight 113.4 kg; iw Height 6 ft. 2 in. (187.96 cm); Pain 9/10; 13:51 Body Mass Index 32.10 (113.40 kg, 187.96 cm) iw ED Course: 13:07 Patient arrived in ED. ds1 13:52 Triage completed. iw 13:53 Arm band placed on. iw 13:54 Clover Keyes, RN is Primary Nurse. jh5 13:58 Demetri Correa MD is Attending Physician. kdr 14:08 Inserted saline lock: 18 gauge in right antecubital area, using aseptic technique. jh5 14:09 Patient has correct armband on for positive identification. Bed in low position. Call [facility] light in reach. Side rails up X 1. 16:20 CT Abd/Pelvis - IV Contrast Only In Process Unspecified. EDMS 17:50 Lj Hernandez DO is Hospitalizing Provider. kdr 18:48 SARS-COV-2 RT PCR (Document "Date of Onset" if Symptomatic) Sent. mh5 18:48 COVID swab sent to lab. 5 19:12 Darling Powell, HUBERT is Primary Nurse. kd3 Administered Medications: 14:36 Drug: Zofran (Ondansetron) 4 mg Route: IVP; Site: right antecubital; jh5 14:36 Drug: Pepcid (famotidine) 20 mg Route: IVP; Site: right antecubital; jh5 15:44 Drug: morphine 4 mg Route: IVP; Site: right antecubital; jh5 18:22 Drug: Dilaudid (HYDROmorphone) 1 mg Route: IVP; Site: right antecubital; jh5 18:22 Drug: NS 0.9% 1000 ml Route: IV; Rate: 1000 ml; Site: right antecubital; jh5 18:22 Drug: NS 0.9% 1000 ml Route: IV; Rate: 125 ml/hr; Site: right antecubital; jh5 18:39 Drug: NS 0.9% 1000 ml Route: IV; Rate: 1 bolus; Site: right forearm; jh5 18:39 Drug: ProTONIX (pantoprazole) 40 mg Route: IVP; Site: right antecubital; 5 Outcome: 17:52 Decision to Hospitalize by Provider. kdr 21:20 Patient left the ED. kd3 Signatures: Dispatcher [employer] EDMS Demetri Correa MD MD [facility] Rona Ansari ds1 Valentine Diaz, RN RN Nancy Gilbert [facility] Clover Keyes RN RN jh5 Darling Powell RN RN kd3
[2021-07-12] MEDS ORDERED: HYDROMORPHONE HCL 2 MG/ML inj ONE (18:08)
[2021-07-12] MEDS ORDERED: NA CHLORIDE 0.9% 100 ML ONE (18:09)
--- NOTE | 2021-07-12 18:44 | P.HP ---
Certification for Inpatient Patient admitted to: Inpatient With expected LOS: >2 Midnights Patient will require the following post-hospital care: None Practitioner: I am a practitioner with admitting privileges, knowledge of patient current condition, hospital course, and medical plan of care. Services: Services provided to patient in accordance with Admission requirements found in Title 42 Section 412.3 of the Code of Federal Regulations Patient History Date of Service: 07/12/21 Primary Care Provider: Mathew Reason for admission: Acute pancreatitis History of Present Illness: 50-year-old male with history of hypertension, hyperlipidemia, GERD presents emergency department for epigastric pain. Patient reports increasing pain over the course last 2 to 3 days, not able to tolerate anything by mouth without severe pain. Patient was evaluated here in the emergency department labs were significant for sodium 139 chloride 92 GFR 82 glucose 154 calcium 8.4T bili 1.4 AST 70 ALT 57 lipase [address] abdomen pelvis with IV contrast demonstrates findings consistent with interstitial edematous p ancreatitis without complicating features. Patient does admit to drinking alcohol daily usually between 3 and 4 vodka beverages full glasses occasionally wine. Patient has had prior cholecystectomy lipid panel is pending at this time. Patient pain is improved with IV narcotic pain medication ED provider wishes to admit for further evaluation and management of acute pancreatitis. Allergies No Known Allergies Allergy (Unverified 11/23/19 08:34) Home Medications: Azilsartan Medoxomil [Edarbi] 40 mg PO DAILY 11/18/19 - Past Medical/Surgical History -: HTN -: HLD -: GERD -: Shoulder sx -: Cholecystectomy Psychosocial/ Personal History: Employed at [employer] - Family History Family History: Reviewed- Non-Contributory - Social History Smoking Status: Never smoker Alcohol use: Yes CD- Drugs: No Caffeine use: No Place of Residence: Home Review of Systems 10-point ROS is otherwise unremarkable Gastrointestinal: Nausea, Vomiting, Abdominal Pain Physical Examination - Physical Exam General: Alert, In no apparent distress, Oriented x3 HEENT: Atraumatic, PERRLA, Mucous membr. moist/pink, EOMI, Sclerae nonicteric Neck: Supple, 2+ carotid pulse no bruit, No LAD, Without JVD or thyroid abnormality Respiratory: Clear to auscultation bilaterally, Normal air movement Cardiovascular: Regular rate/rhythm, Normal S1 S2 Gastrointestinal: Normal bowel sounds, Tenderness (Moderate generalized abdominal tenderness worse in the epigastric region) Musculoskeletal: No tenderness Integumentary: No rashes Neurological: Normal speech, Normal strength at 5/5 x4 extr, Normal tone, Normal affect - Studies Laboratory Data (last 24 hrs) 07/12/21 14:31: WBC 9.50, Hgb 15.6, Hct 44.9, Plt Count 155 07/12/21 14:31: Sodium 129 L, Potassium 4.3, BUN 8, Creatinine 0.97, Glucose 154 H, Total Bilirubin 1.4 H, AST 70 H, ALT 57, Alkaline Phosphatase 72, Lipase 1126 H Assessment and Plan - Plan Assessment: Acute uncomplicated pancreatitis- suspect alcoholic pancreatitis GERD Hypertension Hyperlipidemia Plan: Acute uncomplicated pancreatitis- suspect alcoholic pancreatitis: N.p.o., IVF, as needed pain medication lipid panel pending, alcohol withdrawal assessments every 4 hours and as needed. As needed Ativan for withdrawal symptoms. Doubt patient will have withdrawal. Will advance diet as tolerated. Trend lipase. GERD: We will provide with IV reflux. Hypertension: As needed IV blood pressure medication at this time as patient is n.p.o. Hyperlipidemia: Hold medications at this time as patient is n.p.o. Restart when appropriate. DVT PPX: Lovenox Code status: Full Discharge Plan: Home Plan to discharge in: 48 Hours - Advance Directives Does patient have a Living Will: No Does patient have a Durable POA for Healthcare: No - Code Status/Comfort Care Code Status Assessed: Yes (Full code) Critical Care: No Time Spent Managing Pts Care (In Minutes): 55
[2021-07-12 20:51] LABS: HDL Cholesterol 26 mg/dL (40-60)
[2021-07-12] MEDS ORDERED: ONDANSETRON 4 MG/2 ML VIAL IV PRN (21:05)
[2021-07-12] MEDS ORDERED: SODIUM CHLORIDE 0.9% 10ML INJ IV PRN (21:05)
[2021-07-12] MEDS ORDERED: NA CHLORIDE 0.9% 1,000 ML IV SCH (21:05)
[2021-07-12 21:18] LABS: LDL, Direct 56 mg/dL (100-129)
[2021-07-12] MEDS: MORPHINE 4 MG/ML SYR IV PRN (21:40)
[2021-07-12 22:05] VITALS: BMI 29.8
[2021-07-12] MEDS ORDERED: D50W 25 GM/50 ML SYRINGE IV PRN (22:19)
[2021-07-12] MEDS ORDERED: GLUCAGON 1 MG/VIAL IM PRN (22:19)
[2021-07-12] MEDS ORDERED: INSULIN -REGULAR HUMAN 50 UNIT/0.5 ML ML ONE (22:57)
[2021-07-12] MEDS: INSULIN -REGULAR HUMAN 100 UNIT in NA CHLORIDE 0.9% 100 ML IV SCH (23:06)
[2021-07-12] MEDS: D5.45NS W/KCL 20MEQ 20 MEQ/1,000 ML BAG IV SCH (23:06)
[2021-07-12] MEDS: LORazepam 2 MG/ML VIAL IV PRN (23:08)
[2021-07-13 00:13] LABS: Urine Appearance CLEAR (Clear); Urine Bilirubin NEGATIVE (Negative); Urine Blood NEGATIVE (Negative); Urine Color YELLOW (Yellow); Urine Glucose NEGATIVE (Negative); Urine Protein NEGATIVE (Negative); Urine Specific Gravity >=1.030 (1.005-1.030); Urine Urobilinogen 0.2 mg/dL (0.2-1.0)
[2021-07-13 00:18] LABS: Urine Microscopic Reflex NO UMIC
[2021-07-13] MEDS: MORPHINE 4 MG/ML SYR IV PRN ×6 (01:34→22:00)
[2021-07-13 04:50] LABS: Absolute Lymphocytes (CBC) 1.1 K/uL (0.7-4.9); Basophils % 0.4 % (0-1.3); Hematocrit 39.2 % (39.6-49.0); Lymphocytes % 14.6 % (15.3-44.8); RBC Red Blood Cell Count 4.11 M/uL (4.33-5.43)
[2021-07-13 05:27] LABS: Albumin 2.9 g/dL (3.4-5.0); Bilirubin Total 1.4 mg/dL (0.2-1.0); Potassium 3.5 mmol/L (3.5-5.1); Protein, Total 7.4 g/dL (6.4-8.2)
[2021-07-13] MEDS: D5.45NS W/KCL 20MEQ 20 MEQ/1,000 ML BAG IV SCH ×3 (05:31→17:37)
--- NOTE | 2021-07-13 05:49 | P.PN ---
Subjective Date of Service: 07/13/21 Primary Care Provider: Bhavna Carmona NP Chief Complaint: Acute pancreatitis Subjective: Improving (Patient reports improvement. Less pain noted. Patient desires food.) Physical Examination - Vital Signs Temperature: 98.0 F Blood Pressure: 140/105 Pulse: 109 Respirations: 16 Pulse Ox (%): 97 - Studies Laboratory Data (last 24 hrs) 07/12/21 18:04: Triglycerides 1677 H, Cholesterol 230 H, LDL Cholesterol Direct 56 L, HDL Cholesterol 26 L, Cholesterol/HDL Ratio 8.85 07/12/21 14:31: WBC 9.50, Hgb 15.6, Hct 44.9, Plt Count 155 07/12/21 14:31: Sodium 129 L, Potassium 4.3, BUN 8, Creatinine 0.97, Glucose 154 H, Total Bilirubin 1.4 H, AST 70 H, ALT 57, Alkaline Phosphatase 72, Lipase 1126 H Assessment & Plan Discharge Plan: Home Plan to discharge in: 48 Hours Physician Review Additional Text: COVID: negative CT scan: COMPARISON: Abdomen Pelvis W Contrast dated 12/15/2020; Abdomen Pelvis W Contrast dated 07/20/2019; Abdomen Pelvis W Contrast dated 02/03/2018 TECHNIQUE: CT of the abdomen and pelvis was performed. All CT scans are performed using dose optimization technique as appropriate and may include automated exposure control or mA/KV adjustment according to patient size. FINDINGS: Lower chest: No acute abnormality. Liver: Hepatic steatosis. Low-density lesion in the hepatic dome is incompletely characterize. Biliary: No biliary ductal dilatation. Stomach: No significant focal abnormality. Duodenum: No significant focal abnormality. Pancreas: Diffuse peripancreatic stranding. Spleen: No significant abnormality. Adrenal: No suspicious lesions. Kidney/ureter: No hydronephrosis. No renal calculi. Retroperitoneum: No retroperitoneal adenopathy. Vascular: No aneurysm. Bowel: No significant focal abnormality. Peritoneum: No ascites or free air. No fluid collections identified. Bladder: Grossly unremarkable. Reproductive: No adnexal masses. Bones: No acute fracture. IMPRESSION: Findings consistent with interstitial edematous pancreatitis. No complicating features. Physical Exam: General: Alert, In no apparent distress, Oriented x3 HEENT: Atraumatic, PERRLA, Mucous membr. moist/pink, EOMI, Sclerae nonicteric Neck: Supple, 2+ carotid pulse no bruit, No LAD, Without JVD or thyroid abnormality Respiratory: Clear to auscultation bilaterally, Normal air movement Cardiovascular: Regular rate/rhythm, Normal S1 S2 Gastrointestinal: Normal bowel sounds, pain to the epigastric region improved. Musculoskeletal: No tenderness Integumentary: No rashes Neurological: Normal speech, Normal strength at 5/5 x4 extr, Normal tone, Normal affect Impression: Acute uncomplicated alcohol and hypertriglyceridemia pancreatitis GERD Hypertension Mixed hyperlipidemia Alcohol abuse Insomnia Plan: Acute uncomplicated alcohol and hypertriglyceridemia pancreatitis: Patient remains n.p.o. at this time. Continue aggressive IV fluid hydration. Continue with medication for pain. Continue Protonix. We will add folic acid and thiamine. Patient remains on insulin drip. Recheck triglyceride level later today. If less than 500 we will discontinue insulin drip. Will advance diet to ice chips for now. Consider clear liquids later today after insulin drip is discontinued. Will provide medicationAtivan for agitation. Will monitor for withdrawal symptoms. Encourage ambulation. Anticipate improvement over the next 48 hours. GERD: Continue Protonix IV. Hypertension: Patient takes ARB inhibitor. For now we will provide IV metoprolol. Mixed hyperlipidemia: Patient will require fish oil at discharge. Alcohol abuse: Alcohol cessation addressed in detail. Patient understands that he will need to quit. Insomnia: Patient reports that he drinks to help him sleep. He used to take Ambien in the past. We will provide medication as needed DVT PPX: Lovenox Code status: Full code Discharge Plan: Home at discharge. Likely in the next 48 hours. Time Spent Managing Pts Care (In Minutes): 55
[2021-07-13] MEDS: THIAMINE 200 MG/2 ML INJ IVP SCH (07:44)
[2021-07-13] MEDS: ENOXAPARIN 40 MG/0.4 ML SQ SCH (07:44)
[2021-07-13] MEDS: PANTOPRAZOLE 40 MG INJ IVP SCH (07:44)
[2021-07-13] MEDS: METOPROLOL TARTRATE 5 MG/5 ML INJ IV PRN (07:46)
[2021-07-13] MEDS: FOLIC ACID 1 MG in NA CHLORIDE 0.9% 50 ML IV SCH (08:01)
[2021-07-13] MEDS: LORazepam 2 MG/ML VIAL IV PRN ×12 (08:01→23:00)
[2021-07-13] MEDS: METOPROLOL TAR 25 MG TAB PO SCH ×2 (12:28→17:37)
[2021-07-13] MEDS: INSULIN -REGULAR HUMAN 100 UNIT in NA CHLORIDE 0.9% 100 ML IV SCH (13:16)
[2021-07-13] MEDS ORDERED: FLUMAZENIL 0.1 MG/ML (5 mL VIAL) IV PRN (18:01)
[2021-07-13 19:00] LABS: LDL, Direct 74 mg/dL (100-129)
[2021-07-13] MEDS: LORazepam 2 MG/ML VIAL IV SCH ×2 (19:00→23:00)
[2021-07-13] MEDS ORDERED: LORazepam 2 MG/ML VIAL IV ONE (19:50)
[2021-07-13] MEDS: HYDROMORPHONE HCL 0.5 MG/0.5 ML INJ IV ONE (21:08)
[2021-07-13] MEDS ORDERED: HYDROMORPHONE HCL 0.5 MG/0.5 ML INJ ONE (21:13)
[2021-07-14] MEDS: HALOPERIDOL LACT 5 MG/ML INJ IM PRN ×3 (00:26→21:05)
[2021-07-14] MEDS: D5.45NS W/KCL 20MEQ 20 MEQ/1,000 ML BAG IV SCH (00:32)
[2021-07-14] MEDS: LORazepam 2 MG/ML VIAL IV PRN ×12 (00:32→23:45)
[2021-07-14] MEDS: HYDROMORPHONE HCL 0.5 MG/0.5 ML INJ IV ONE (01:24)
[2021-07-14] MEDS: LORazepam 2 MG/ML VIAL IV SCH ×7 (03:00→23:41)
[2021-07-14] MEDS: HYDROMORPHONE HCL 0.5 MG/0.5 ML INJ IV PRN ×4 (05:09→21:04)
--- NOTE | 2021-07-14 05:48 | P.PN ---
Subjective Date of Service: 07/14/21 Primary Care Provider: Bhavna Carmona NP Chief Complaint: Acute pancreatitis Subjective: Other (Patient had hallucinations yesterday related to alcohol withdrawal. Patient required alcohol withdrawal protocol. Continue with Ativan. Patient alert today. No significant pain. Still with agitation and wanting to leave.) Physical Examination - Vital Signs Temperature: 97.9 F Blood Pressure: 152/109 Pulse: 98 Respirations: 18 Pulse Ox (%): 97 Assessment & Plan Discharge Plan: Home Plan to discharge in: 48 Hours Physician Review Additional Text: COVID: negative CT scan: COMPARISON: Abdomen Pelvis W Contrast dated 12/15/2020; Abdomen Pelvis W Contrast dated 07/20/2019; Abdomen Pelvis W Contrast dated 02/03/2018 TECHNIQUE: CT of the abdomen and pelvis was performed. All CT scans are performed using dose optimization technique as appropriate and may include automated exposure control or mA/KV adjustment according to patient size. FINDINGS: Lower chest: No acute abnormality. Liver: Hepatic steatosis. Low-density lesion in the hepatic dome is incompletely characterize. Biliary: No biliary ductal dilatation. Stomach: No significant focal abnormality. Duodenum: No significant focal abnormality. Pancreas: Diffuse peripancreatic stranding. Spleen: No significant abnormality. Adrenal: No suspicious lesions. Kidney/ureter: No hydronephrosis. No renal calculi. Retroperitoneum: No retroperitoneal adenopathy. Vascular: No aneurysm. Bowel: No significant focal abnormality. Peritoneum: No ascites or free air. No fluid collections identified. Bladder: Grossly unremarkable. Reproductive: No adnexal masses. Bones: No acute fracture. IMPRESSION: Findings consistent with interstitial edematous pancreatitis. No complicating features. Physical Exam: General: Patient alert. Some agitation noted. Nurses report patient was having hallucinations yesterday. HEENT: Atraumatic, PERRLA, Mucous membr. moist/pink, EOMI, Sclerae nonicteric Neck: Supple, 2+ carotid pulse no bruit, No LAD, Without JVD or thyroid abnormality Respiratory: Clear to auscultation bilaterally, Normal air movement Cardiovascular: Regular rate/rhythm, Normal S1 S2 Gastrointestinal: No abdominal pain noted Musculoskeletal: No tenderness Integumentary: No rashes Neurological: Good strength throughout. Impression: Acute uncomplicated alcohol and hypertriglyceridemia pancreatitis Alcohol withdrawal with alcohol abuse Hyponatremia with dehydration GERD Hypertension Mixed hyperlipidemia Insomnia Plan: Acute uncomplicated alcohol and hypertriglyceridemia pancreatitis: Lipase within normal range. Triglycerides below 500. Will discontinue insulin drip. Continue aggressive IV fluid hydration. Continue IV Protonix. Will provide medication for pain. We will start with a clear liquid diet and advance as tolerated. Patient with alcohol withdrawal. Alcohol withdrawal protocol in place. Continue with Ativan and Librium. Will wean off. Patient was wanting to leave home. I explained that he is not ready to go home. This was addressed in detail with the in detail. Continue to provide alcohol withdrawal medication. Anticipate continued improvement over the next 48 to 72 hours. Continue to monitor closely. Alcohol withdrawal with alcohol abuse: Continue with Librium and Ativan. Continue withdrawal protocol. Continue to monitor closely. Plan of care addressed in detail with patient and . Hyponatremia with dehydration: Continue with IV fluids. GERD: Continue Protonix IV. Hypertension: Blood pressure still elevated. Will increase metoprolol to 50 mg 1 pill twice daily. Continue IV medication as needed. Consider adding ARB inhibitor. Mixed hyperlipidemia: We will start fish oil. Insomnia: Patient reports that he drinks to help him sleep. He used to take Ambien in the past. Will monitor closely. Continue with Ativan. DVT PPX: Lovenox Code status: Full code Discharge Plan: Home at discharge. Likely in the next 48 hours. Time Spent Managing Pts Care (In Minutes): 55
[2021-07-14] MEDS: METOPROLOL TARTRATE 5 MG/5 ML INJ IV PRN (06:13)
[2021-07-14 06:19] LABS: Absolute Lymphocytes (CBC) 0.8 K/uL (0.7-4.9); Basophils % 0.3 % (0-1.3); Hematocrit 37.3 % (39.6-49.0); Lymphocytes % 13.6 % (15.3-44.8); MPV 7.6 fL (7.6-11.3); RBC Red Blood Cell Count 3.86 M/uL (4.33-5.43)
[2021-07-14 06:35] LABS: Albumin 2.6 g/dL (3.4-5.0); Bilirubin Total 1.4 mg/dL (0.2-1.0); Potassium 3.7 mmol/L (3.5-5.1); Protein, Total 7.2 g/dL (6.4-8.2)
[2021-07-14] MEDS ORDERED: HYDROMORPHONE HCL 1 MG/ML INJ ONE (06:44)
[2021-07-14] MEDS: HYDROMORPHONE HCL 1 MG/ML INJ IV PRN ×6 (07:35→23:30)
[2021-07-14] MEDS: FOLIC ACID 1 MG in NA CHLORIDE 0.9% 50 ML IV SCH (09:39)
[2021-07-14] MEDS: chlordiazePOXIDE HCl 25 MG CAP PO SCH ×3 (09:39→20:05)
[2021-07-14] MEDS: THIAMINE 200 MG/2 ML INJ IVP SCH (09:39)
[2021-07-14] MEDS: ENOXAPARIN 40 MG/0.4 ML SQ SCH (09:40)
[2021-07-14] MEDS: D5NS KCL 20MEQ 20 MEQ/1,000 ML BAG IV SCH ×2 (09:40→16:23)
[2021-07-14] MEDS: METOPROLOL TAR 50 MG TAB PO SCH ×2 (09:41→17:48)
[2021-07-14] MEDS: PANTOPRAZOLE 40 MG INJ IVP SCH (09:41)
[2021-07-14 17:36] LABS: LDL, Direct 102 mg/dL (100-129)
[2021-07-15] MEDS: LORazepam 2 MG/ML VIAL IV PRN ×15 (00:19→13:05)
[2021-07-15] MEDS: HYDROMORPHONE HCL 0.5 MG/0.5 ML INJ IV PRN ×3 (01:21→08:15)
[2021-07-15] MEDS: LORazepam 2 MG/ML VIAL IV SCH ×8 (03:30→23:32)
[2021-07-15] MEDS: HYDROMORPHONE HCL 1 MG/ML INJ IV PRN ×4 (03:34→21:40)
[2021-07-15] MEDS: HALOPERIDOL LACT 5 MG/ML INJ IM PRN ×2 (03:35→13:55)
--- NOTE | 2021-07-15 05:44 | P.PN ---
Subjective Date of Service: 07/15/21 Primary Care Provider: Bhavna Carmona NP Chief Complaint: Acute pancreatitis Subjective: Other (Patient refusing telemetry this morning. Patient multiple times tried to leave for home yesterday and last night. Patient continued to get Ativan to help with agitation. Patient desires to leave again today.) Physical Examination - Vital Signs Temperature: 97.3 F Blood Pressure: 118/79 Pulse: 94 Respirations: 18 Pulse Ox (%): 94 Assessment & Plan Discharge Plan: Home Plan to discharge in: 24 Hours Physician Review Additional Text: COVID: negative CT scan: COMPARISON: Abdomen Pelvis W Contrast dated 12/15/2020; Abdomen Pelvis W Contrast dated 07/20/2019; Abdomen Pelvis W Contrast dated 02/03/2018 TECHNIQUE: CT of the abdomen and pelvis was performed. All CT scans are performed using dose optimization technique as appropriate and may include automated exposure control or mA/KV adjustment according to patient size. FINDINGS: Lower chest: No acute abnormality. Liver: Hepatic steatosis. Low-density lesion in the hepatic dome is incompletely characterize. Biliary: No biliary ductal dilatation. Stomach: No significant focal abnormality. Duodenum: No significant focal abnormality. Pancreas: Diffuse peripancreatic stranding. Spleen: No significant abnormality. Adrenal: No suspicious lesions. Kidney/ureter: No hydronephrosis. No renal calculi. Retroperitoneum: No retroperitoneal adenopathy. Vascular: No aneurysm. Bowel: No significant focal abnormality. Peritoneum: No ascites or free air. No fluid collections identified. Bladder: Grossly unremarkable. Reproductive: No adnexal masses. Bones: No acute fracture. IMPRESSION: Findings consistent with interstitial edematous pancreatitis. No complicating features. Physical Exam: General: Patient alert, cooperative. No more hallucinations noted. Mild agitation noted. Patient comprehends appropriately. HEENT: Atraumatic, PERRLA, Mucous membr. moist/pink, EOMI, Sclerae nonicteric Neck: Supple, 2+ carotid pulse no bruit, No LAD, Without JVD or thyroid abnormality Respiratory: Clear to auscultation bilaterally, Normal air movement Cardiovascular: Regular rate/rhythm, Normal S1 S2 Gastrointestinal: No abdominal pain noted Musculoskeletal: No tenderness Integumentary: No rashes Neurological: Good strength throughout. Impression: Acute uncomplicated alcohol and hypertriglyceridemia pancreatitis Alcohol withdrawal with alcohol abuse Hyponatremia with dehydration GERD Hypertension Mixed hyperlipidemia Insomnia Plan: Acute uncomplicated alcohol and hypertriglyceridemia pancreatitis: Patient tolerated diet yesterday. Lipase in normal range yesterday. Pancreatitis seems to have resolved. Continue with heart healthy diet. Continue with fish oil. Will change to Protonix oral. Patient still with alcohol withdrawal. Patient requiring Librium and Ativan. Patient wanting to leave home. Will discuss with concerning plan of care. Patient still not ready to be discharged home especially if he plans to quit drinking. If he were to go home and start drinking this may exacerbate his pancreatitis. Patient should remain in the hospital to continue withdrawal treatment. Patient may end up wanting to leave AGAINST MEDICAL ADVICE. Will discuss with family and patient again in detail. Alcohol withdrawal with alcohol abuse: Continue with Librium and Ativan. Continue withdrawal protocol. Continue to monitor closely. Plan of care addressed with patient and yesterday. Will rediscuss again today. Hyponatremia with dehydration: DC IV fluids GERD: Change Protonix to 40 mg daily Hypertension: Blood pressure still elevated. Will increase metoprolol to 50 mg 1 pill twice daily. Continue IV medication as needed. Consider adding ARB inhibitor. Mixed hyperlipidemia: Continue fish oil Insomnia: Patient reports that he drinks to help him sleep. He used to take Ambien in the past. Will monitor closely. Continue with Ativan. DVT PPX: Lovenox Code status: Full code Discharge Plan: Home at discharge. Likely in the next 48 hours. Time Spent Managing Pts Care (In Minutes): 55
[2021-07-15] MEDS: METOPROLOL TAR 50 MG TAB PO SCH ×2 (06:00→17:30)
[2021-07-15 06:32] LABS: Absolute Lymphocytes (CBC) 0.6 K/uL (0.7-4.9); Basophils % 0.5 % (0-1.3); Lymphocytes % 9.9 % (15.3-44.8); MPV 6.8 fL (7.6-11.3); RBC Red Blood Cell Count 3.92 M/uL (4.33-5.43)
[2021-07-15 06:45] LABS: Albumin 2.8 g/dL (3.4-5.0); Bilirubin Total 0.9 mg/dL (0.2-1.0); Potassium 4.2 mmol/L (3.5-5.1); Protein, Total 7.7 g/dL (6.4-8.2)
[2021-07-15] MEDS: chlordiazePOXIDE HCl 25 MG CAP PO SCH ×4 (09:40→23:32)
[2021-07-15] MEDS: THIAMINE HCL 100 MG TABLET PO SCH (09:40)
[2021-07-15] MEDS: ENOXAPARIN 40 MG/0.4 ML SQ SCH (09:40)
[2021-07-15] MEDS: FOLIC ACID 1 MG TABLET PO SCH (09:41)
[2021-07-15] MEDS: DOCOSAHEXANOIC AC/EPA 1000 MG PO SCH ×2 (09:41→21:00)
[2021-07-15] MEDS ORDERED: DEXMEDETOMIDINE HCL 200 MCG in NA CHLORIDE 0.9% 98 ML IV SCH (13:00)
[2021-07-15] MEDS ORDERED: FLUMAZENIL 0.1 MG/ML (5 mL VIAL) IV ONE (13:08)
[2021-07-15] MEDS ORDERED: WATER FOR INJ,STERILE 10 ML IM PRN (13:46)
[2021-07-15] MEDS ORDERED: ZIPRASIDONE MESYLA 20 MG/VIAL IM PRN (13:46)
[2021-07-15] MEDS ORDERED: WATER FOR INJ,STERILE 10 ML ONE (13:49)
[2021-07-15] MEDS ORDERED: ZIPRASIDONE MESYLA 20 MG/VIAL IM ONE (13:50)
[2021-07-15] MEDS ORDERED: NALOXONE HCL 2 MG/2 ML VIAL ONE (13:58)
[2021-07-15] MEDS ORDERED: DEXMEDETOMIDINE HCL 1,000 MCG in NA CHLORIDE 0.9% 490 ML IV SCH (16:00)
[2021-07-15] MEDS ORDERED: LORazepam 2 MG/ML VIAL IV SCH (19:00)
[2021-07-16] MEDS: LORazepam 2 MG/ML VIAL IV PRN ×4 (01:14→08:00)
[2021-07-16] MEDS: HYDROMORPHONE HCL 1 MG/ML INJ IV PRN ×2 (01:36→07:13)
[2021-07-16] MEDS: LORazepam 2 MG/ML VIAL IV SCH ×3 (03:00→09:15)
[2021-07-16 05:16] LABS: Absolute Lymphocytes (CBC) 0.8 K/uL (0.7-4.9); Basophils % 0.9 % (0-1.3); Hematocrit 37.9 % (39.6-49.0); Lymphocytes % 17.2 % (15.3-44.8); MPV 6.8 fL (7.6-11.3); RBC Red Blood Cell Count 3.95 M/uL (4.33-5.43)
[2021-07-16 05:33] LABS: ALT/SGPT 52 U/L (12-78); AST/SGOT 78 U/L (15-37); Albumin 2.8 g/dL (3.4-5.0); Alkaline Phosphatase 63 U/L (45-117); BUN Blood Urea Nitrogen 11 mg/dL (7-18); Bicarbonate 26 mmol/L (21-32); Glucose Level 115 mg/dL (74-106); Lipase 152 U/L (73-393); Protein, Total 7.7 g/dL (6.4-8.2); Sodium Level 136 mmol/L (136-145)
--- NOTE | 2021-07-16 05:45 | P.PN ---
Subjective Date of Service: 07/16/21 Primary Care Provider: Bhavna Carmona NP Chief Complaint: Acute pancreatitis Subjective: Other (Patient still remains disorganized in his thoughts. Severe alcohol withdrawal noted. Multiple code gloria called yesterday and last night. Patient lying in bed and reasonable when talking to.) Physical Examination - Vital Signs Temperature: 97.6 F Blood Pressure: 141/99 Pulse: 71 Respirations: 18 Pulse Ox (%): 95 Assessment & Plan Discharge Plan: Home Plan to discharge in: 72 Hours Physician Review Additional Text: COVID: negative CT scan: COMPARISON: Abdomen Pelvis W Contrast dated 12/15/2020; Abdomen Pelvis W Contrast dated 07/20/2019; Abdomen Pelvis W Contrast dated 02/03/2018 TECHNIQUE: CT of the abdomen and pelvis was performed. All CT scans are performed using dose optimization technique as appropriate and may include automated exposure control or mA/KV adjustment according to patient size. FINDINGS: Lower chest: No acute abnormality. Liver: Hepatic steatosis. Low-density lesion in the hepatic dome is incompletely characterize. Biliary: No biliary ductal dilatation. Stomach: No significant focal abnormality. Duodenum: No significant focal abnormality. Pancreas: Diffuse peripancreatic stranding. Spleen: No significant abnormality. Adrenal: No suspicious lesions. Kidney/ureter: No hydronephrosis. No renal calculi. Retroperitoneum: No retroperitoneal adenopathy. Vascular: No aneurysm. Bowel: No significant focal abnormality. Peritoneum: No ascites or free air. No fluid collections identified. Bladder: Grossly unremarkable. Reproductive: No adnexal masses. Bones: No acute fracture. IMPRESSION: Findings consistent with interstitial edematous pancreatitis. No complicating features. Physical Exam: General: Patient still with disorganized thoughts. Patient alert and cooperative. Oriented x1. Patient reasonable at times and somewhat cooperative. HEENT: Atraumatic, PERRLA, Mucous membr. moist/pink, EOMI, Sclerae nonicteric Neck: Supple, 2+ carotid pulse no bruit, No LAD, Without JVD or thyroid abnormality Respiratory: Clear to auscultation bilaterally, Normal air movement Cardiovascular: Regular rate/rhythm, Normal S1 S2 Gastrointestinal: No abdominal pain noted Musculoskeletal: No tenderness Integumentary: No rashes Neurological: Good strength throughout. Impression: Acute uncomplicated alcohol and hypertriglyceridemia pancreatitis Severe alcohol withdrawal with alcohol abuse Hyponatremia with dehydration GERD Hypertension Mixed hyperlipidemia Insomnia Plan: Acute uncomplicated alcohol and hypertriglyceridemia pancreatitis: Pancreatitis has resolved. Continue with heart healthy diet. Patient remains on fish oil, Protonix. Patient with severe alcohol withdrawal. Multiple code gloria have been called over the last 24 to 48 hours. Patient still with disorganized tho ughts. Still not ready to be discharged. Continue with Dexmedetomidine, Librium, Ativan, Dilaudid, Haldol and Geodon. Critical care was consulted as Dexmedetomidine has to be ordered by critical care. Case discussed in detail with critical care yesterday. Critical care agrees with plan of care. Care discussed in detail with patient in this morning. understands patient still with disorganized thoughts and with severe alcohol withdrawal. Patient somewhat improved. Still not ready to be discharged home. Anticipate improvement over the next 2 to 3 days. Patient desires to quit alcohol. Patient has been in alcohol rehab in the past. Consider alcohol rehab in the near future. I will turn the service over to the hospitalist team tomorrow. I will go plan of care with him. Severe alcohol withdrawal with alcohol abuse: Continue with above plan of care. Continue with Dexmedetomidine drip, Librium 25 mg every 6 hours, Ativan as needed for agitation, Dilaudid as needed for pain, Haldol as needed for agitation and Geodon as needed for severe agitation. Critical care was consulted as Dexmedetomidine has to be ordered by critical care. Case discussed in detail with critical care yesterday. Critical care agrees with plan of care. Care discussed in detail with patient in this morning. understands patient still with disorganized thoughts and with severe alcohol withdrawal. Patient somewhat improved. Still not ready to be discharged home. Patient cannot leave safely AGAINST MEDICAL ADVICE. If the patient leaves the hospital consider activating code banks and call in reinforcements with police if needed. Patient has been cooperative. Hopefully he will continue to remain cooperative. Hyponatremia with dehydration: IV fluids discontinued yesterday. Encourage oral intake. GERD: Continue Protonix to 40 mg daily Hypertension: Blood pressure still elevated. Continue metoprolol 50 mg 1 pill twice daily. Continue IV medication as needed. Mixed hyperlipidemia: Continue fish oil Insomnia: Continue with Ativan. DVT PPX: Lovenox Code status: Full code Discharge Plan: Home at discharge. Likely discharge in the next 2 to 3 days. Time Spent Managing Pts Care (In Minutes): 55
[2021-07-16] MEDS: METOPROLOL TAR 50 MG TAB PO SCH (06:03)
[2021-07-16] MEDS: chlordiazePOXIDE HCl 25 MG CAP PO SCH (06:24)
[2021-07-16] MEDS ORDERED: PANTOPRAZOLE 40MG TABLET PO SCH (06:30)
[2021-07-16 07:17] VITALS: O2SAT 93
[2021-07-16 07:41] VITALS: BP 141/99
[2021-07-16 09:00] VITALS: TEMP 97.7
[2021-07-16] MEDS: THIAMINE HCL 100 MG TABLET PO SCH (09:15)
[2021-07-16] MEDS: FOLIC ACID 1 MG TABLET PO SCH (09:15)
[2021-07-16] MEDS: ENOXAPARIN 40 MG/0.4 ML SQ SCH (09:16)
[2021-07-16] MEDS: DOCOSAHEXANOIC AC/EPA 1000 MG PO SCH (09:16)
[2021-07-16] MEDS ORDERED: DEXMEDETOMIDINE HCL 1,000 MCG in NA CHLORIDE 0.9% 490 ML IV SCH (10:00)
--- NOTE | 2021-07-16 11:02 | P.DS ---
Admission Date: 07/12/21 Discharge Date: 07/16/21 Primary Care Provider: Bhavna Carmona NP Disposition: AMA-LEFT AGAINST MEDICAL ADVIC Discharge Condition: GOOD Reason for Admission: Acute pancreatitis Consultations: Pulmonary-Dr. Mar Procedures: COVID: negative CT scan: COMPARISON: Abdomen Pelvis W Contrast dated 12/15/2020; Abdomen Pelvis W Contrast dated 07/20/2019; Abdomen Pelvis W Contrast dated 02/03/2018 TECHNIQUE: CT of the abdomen and pelvis was performed. All CT scans are performed using dose optimization technique as appropriate and may include automated exposure control or mA/KV adjustment according to patient size. FINDINGS: Lower chest: No acute abnormality. Liver: Hepatic steatosis. Low-density lesion in the hepatic dome is incompletely characterize. Biliary: No biliary ductal dilatation. Stomach: No significant focal abnormality. Duodenum: No significant focal abnormality. Pancreas: Diffuse peripancreatic stranding. Spleen: No significant abnormality. Adrenal: No suspicious lesions. Kidney/ureter: No hydronephrosis. No renal calculi. Retroperitoneum: No retroperitoneal adenopathy. Vascular: No aneurysm. Bowel: No significant focal abnormality. Peritoneum: No ascites or free air. No fluid collections identified. Bladder: Grossly unremarkable. Reproductive: No adnexal masses. Bones: No acute fracture. IMPRESSION: Findings consistent with interstitial edematous pancreatitis. No complicating features. Medical Problem List: Acute uncomplicated alcohol and hypertriglyceridemia pancreatitis Severe alcohol withdrawal with alcohol abuse Hyponatremia with dehydration GERD Hypertension Mixed hyperlipidemia Insomnia Posttraumatic stress disorder Brief History of Present Illness: 50-year-old male presented to the emergency room with epigastric pain. Patient with history of alcohol abuse, hypertension and PTSD. Patient found to have acute pancreatitis with alcohol use. Patient admitted for treatment. Hospital Course: Patient presented with acute uncomplicated alcohol and hypertriglyceridemia pancreatitis. Patient was admitted to ICU. Patient received IV fluids and IV insulin for treatment. His condition improved. This was complicated with alcohol abuse and severe alcohol withdrawal. The patient was weaned off insulin. The patient continue with IV fluids. Pancreatitis resolved. For his severe alcohol withdrawal, the patient was placed on Librium. Patient required increased amounts of Ativan. Patient also required Dexmedetomidine. Patient tried to leave multiple times. His condition has improved significantly. Patient still with some disorganized thoughts. Patient is cooperative. Patient desires to leave. This was addressed in detail with the . My concerns are that the patient still is recovering from alcohol withdrawal. Patient can easily fall and hurt himself or get more agitated. understands the situation but plans on taking the patient home. Paperwork for AGAINST MEDICAL ADVICE will be addressed. I will recommend at discharge that the patient continue with thiamine 100 mg daily and folic acid 1 mg daily. I will give a limited supply of Librium 10 mg twice daily as needed for agitation related to alcohol withdrawal. Recommend close follow-up with PCP in the next 1 to 2 days to follow his care. This was addressed in detail with the who understands clearly. Patient does not desire to drink alcohol. Recommend alcohol cessation as pancreatitis can recur. Will recommend alcohol rehab for the patient. We will also provide information on psychiatry in the area to further address his condition. Patient with hypertension. Patient previously taking Edarbi. This was discontinued. Patient has been taking metoprolol in the hospital. At discharge patient will continue with metoprolol 50 mg 1 pill twice daily. Recommend to maintain blood pressure less than 130/80. Further adjustment in medication may be required if blood pressure remains above 140/90. Hold if blood pressure systolic less than 110 or heart rate less than 60. Follow-up with PCP to further address. Patient with mixed hyperlipidemia. As mentioned above patient presented with alcohol and hypertriglyceridemia pancreatitis. At discharge patient will continue with fish oil 2 g twice daily. Patient with history of insomnia and posttraumatic stress disorder. Will recommend psychiatry evaluation as an outpatient. A list of providers will be provided. Patient would benefit with counseling and alcohol rehab. Will provide information as well. This can be further addressed by his PCP. Patient with GERD. At discharge patient will continue with Protonix 40 mg daily. Follow-up with GI to further address. Vital Signs/Physical Exam: Temp Pulse Resp BP Pulse Ox 97.7 F 71 18 141/99 H 95 07/16/21 08:00 07/16/21 07:40 07/16/21 07:40 07/16/21 07:40 07/16/21 07:40 General: Alert, Oriented x2, Cooperative, Other (Still with some disorganized thoughts) HEENT: Atraumatic Neck: Supple Respiratory: Clear to auscultation bilaterally, Normal air movement Cardiovascular: Normal pulses, Regular rate/rhythm Gastrointestinal: Normal bowel sounds, No ascites, No tenderness, No masses, No rebound, No guarding Integumentary: No tenderness/swelling, No erythema, No warmth, No cyanosis Neurological: Normal speech, Normal strength at 5/5 x4 extr, Normal tone Laboratory Data at Discharge: WBC 4.90 K/uL (4.3-10.9) D 07/16/21 04:50 Hgb 13.1 g/dL (13.6-17.9) L 07/16/21 04:50 Hct 37.9 % (39.6-49.0) L 07/16/21 04:50 Plt Count 161 K/uL (152-406) 07/16/21 04:50 Sodium 136 mmol/L (136-145) 07/16/21 04:50 Potassium 4.0 mmol/L (3.5-5.1) 07/16/21 04:50 BUN 11 mg/dL (7-18) 07/16/21 04:50 Creatinine 0.84 mg/dL (0.55-1.3) 07/16/21 04:50 Glucose 115 mg/dL (74-106) H 07/16/21 04:50 Total Bilirubin 1.0 mg/dL (0.2-1.0) 07/16/21 04:50 AST 78 U/L (15-37) H 07/16/21 04:50 ALT 52 U/L (12-78) 07/16/21 04:50 Alkaline Phosphatase 63 U/L (45-117) 07/16/21 04:50 Triglycerides 376 mg/dL (<150) H 07/15/21 06:16 Cholesterol 230 mg/dL (<200) H 07/12/21 18:04 LDL Cholesterol Direct 102 mg/dL (100-129) 07/14/21 16:50 HDL Cholesterol 26 mg/dL (40-60) L 07/12/21 18:04 Cholesterol/HDL Ratio 8.85 07/12/21 18:04 Lipase 152 U/L (73-393) 07/16/21 04:50 Home Medications: Chlordiazepoxide HCl [Librium] 10 mg PO BID PRN #15 capsule 07/16/21 Folic Acid 1 mg PO DAILY #90 tablet 07/16/21 Metoprolol Tartrate [Lopressor*] 50 mg PO BID 6AM 6PM #60 tab 07/16/21 Pantoprazole [Protonix Tab] 40 mg PO DAILY #30 tab 07/16/21 Thiamine HCl [Vitamin B-1*] 100 mg PO DAILY #90 tablet 07/16/21 New Medications: Folic Acid 1 mg PO DAILY #90 tablet Chlordiazepoxide HCl [Librium] 10 mg PO BID PRN #15 capsule PRN Reason: Agitation Metoprolol Tartrate [Lopressor*] 50 mg PO BID 6AM 6PM #60 tab Pantoprazole [Protonix Tab] 40 mg PO DAILY #30 tab Thiamine HCl [Vitamin B-1*] 100 mg PO DAILY #90 tablet Physician Discharge Instructions: Patient presented with acute uncomplicated alcohol and hypertriglyceridemia pancreatitis. Patient was admitted to ICU. Patient received IV fluids and IV insulin for treatment. His condition improved. This was complicated with alcohol abuse and severe alcohol withdrawal. The patient was weaned off insulin. The patient continue with IV fluids. Pancreatitis resolved. For his severe alcohol withdrawal, the patient was placed on Librium. Patient required increased amounts of Ativan. Patient also required Dexmedetomidine. Patient tried to leave multiple times. His condition has improved significantly. Patient still with some disorganized thoughts. Patient is cooperative. Patient desires to leave. This was addressed in detail with the . My concerns are that the patient still is recovering from alcohol withdrawal. Patient can easily fall and hurt himself or get more agitated. understands the situation but plans on taking the patient home. Paperwork for AGAINST MEDICAL ADVICE will be addressed. I will recommend at discharge that the patient continue with thiamine 100 mg daily and folic acid 1 mg daily. I will give a limited supply of Librium 10 mg twice daily as needed for agitation related to alcohol withdrawal. Recommend close follow-up with PCP in the next 1 to 2 days to follow his care. This was addressed in detail with the who understands clearly. Patient does not desire to drink alcohol. Recommend alcohol cessation as pancreatitis can recur. Will recommend alcohol rehab for the patient. We will also provide information on psychiatry in the area to further address his condition. Patient with hypertension. Patient previously taking Edarbi. This was discontinued. Patient has been taking metoprolol in the hospital. At discharge patient will continue with metoprolol 50 mg 1 pill twice daily. Recommend to maintain blood pressure less than 130/80. Further adjustment in medication may be required if blood pressure remains above 140/90. Hold if blood pressure systolic less than 110 or heart rate less than 60. Follow-up with PCP to further address. Patient with mixed hyperlipidemia. As mentioned above patient presented with alcohol and hypertriglyceridemia pancreatitis. At discharge patient will continue with fish oil 2 g twice daily. Patient with history of insomnia and posttraumatic stress disorder. Will recommend psychiatry evaluation as an outpatient. A list of providers will be provided. Patient would benefit with counseling and alcohol rehab. Will provide information as well. This can be further addressed by his PCP. Patient with GERD. At discharge patient will continue with Protonix 40 mg daily. Follow-up with GI to further address. Diet: AHA Activity: Fall precautions Followup: Peña Garibay MD [Primary Care Provider] - Time spent managing pt's care (in minutes): 55
[2021-07-16] MEDS ORDERED: chlordiazePOXIDE HCl 25 MG CAP PO SCH (12:00)
== END 2021-07-16 11:35 | disposition left against medical advice (07) | DRG 439 ==
LOC: ER 13:06 → ERHOLD 18:34 → 2ND 21:01 → 3RD-ICU 22:50
PROVIDERS: ADMIT Family Medicine; ATTEND Family Medicine
DX: K85.20 Alcohol induced acute pancreatitis without necrosis or infection (principal); F10.139 Alcohol abuse with withdrawal, unspecified; F10.151 Alcohol abuse with alcohol-induced psychotic disorder with hallucinations; E87.1 Hypo-osmolality and hyponatremia; K21.9 Gastro-esophageal reflux disease without esophagitis; I10 Essential (primary) hypertension; E78.1 Pure hyperglyceridemia; E78.2 Mixed hyperlipidemia; F43.10 Post-traumatic stress disorder, unspecified; E86.0 Dehydration; G47.00 Insomnia, unspecified; Z20.822 Contact with and (suspected) exposure to COVID-19; Z78.1 Physical restraint status; Z88.8 Allergy status to other drugs, medicaments and biological substances; Z53.29 Procedure and treatment not carried out because of patient's decision for other reasons
CPT/HCPCS: 36415; 74177; 80048; 80053; 80061; 80076; 80320; 81003; 82947; 83036; 83690; 84478; 85025; 96374; 96375; 99284; C9113; J1170; J1630; J1650; J2310; J2405; J3411; J3480; J3486; J7030; J7040; Q9967; U0003

== ENCOUNTER 2022-06-29 03:44 | Emergency (ER) | payer BC ==
--- OUTSIDE RECORDS SUMMARY | 2022-06-29 03:48 | XMS REPORT | Continuity of Care Document ---
:1970 Author Organization [facility] t Address [address] [place] [address] Care Team Providers Name Role Phone FOUND, PCP NOT Primary Care Physician Unavailable Keiko Mackey Attending Clinician Unavailable SEBAS DE LA CRUZ Attending Clinician Unavailable Radiology Attending Clinician Unavailable RADIOLOGY Attending Clinician Unavailable DEBRA HANLEY Attending Clinician Unavailable Payers Payer Name Policy Type Policy Number Effective Date Expiration Date S ource Problems Condition Condition Condition Status Onset Resolution Last Treating Co mments Source Name Details Category Date Date Treatment Clinician Date Problem Condition [facility] Anxiety Anxiety Problem Active [facility] Essential Essential Problem Active Com mon (primary) (primary) Spir it hypertensi hypertensi - [facility] Primary Primary Problem Active Common insomnia insomnia [facility] Sleep Sleep Problem Active Common disturbanc disturbanc [facility] e e - [facility] Hypertrigl Hypertrigl Problem Active C ommon yceridemia yceridemia Sp [facility] Erectile Erectile Problem Active Commo n dysfunctio dysfunctio Sp scott n, n, - [facility] unspecifie unspecifie St d erectile d erectile Christina kes dysfunctio dysfunctio Me dical n type n type Center Allergies, Adverse Reactions, Alerts Allergy Allergy Status Severity Reaction(s) Onset Inactive Treating Comm ents Source Name Type Date Date Clinician NO KNOWN Drug Active [facility] ALLERGIE [facility] Social History Social Habit Start Date Stop Date Quantity Comments Source Exposure to Not sure [facility] SARS-CoV-2 (event) Medica l Branch Sex Assigned At [birth year] Male [facility] 00:00:00 00:00:00 Smoking Status Start Date Stop Date Source Unknown if ever smoked [facility] Medications Ordered Filled Start Stop Current Ordering [...] 4-18 S - Odt) 4 Mg 15:49: [place] TAB.[facility]APDIS [facility] 2020-0 No 50mg [facility] Hcl 4-18 S - (Ultram) 50 15:49: [place] Mg TAB [facility] Edarbi Edarbi Yes Keiko not Common Isabella defined [facility] Tricor Tricor Yes Keiko 1 tablet Common Isabella with food [facility] Tramadol-Ac Tramadol-Ac Yes Keiko (Schedule Common etaminophen etaminophen Isabella IV Drug) Spirit TAKE 1 - [facility] NEEDED FOR PAIN Acetaminoph Acetaminoph Yes Keiko (Schedule Common en-Codeine en-Codeine Isabella III Drug) Spirit #3 #3 TAKE 1 - [facility] NEEDED FOR PAIN Tricor Tricor Yes Keiko 1 tablet Common Isabella with food [facility] Zolpidem Zolpidem Yes Keiko (Schedule C ommon Tartrate Tartrate Isabella IV Drug) Sp scott TAKE 1 - [facility] TABLET BY [facility] Vital Signs Vital Name Observation Time Observation Value Comments Source Heart Rate 2019-11-07 16:01:00 94 /min [facility] Respiratory rate 2019-11-07 16:01:00 20 /min [facility] BP Systolic 2019-11-07 16:01:00 145 mm[Hg] [facility] BP Diastolic 2019-11-07 16:01:00 92 mm[Hg] [facility] Heart Rate 2019-11-07 14:33:00 83 /min [facility] Respiratory rate 2019-11-07 14:33:00 18 /min [facility] BP Systolic 2019-11-07 14:33:00 142 mm[Hg] [facility] BP Diastolic 2019-11-07 14:33:00 93 mm[Hg] [facility] Body Temperature 2019-11-07 11:30:00 98.4 [degF] [facility] Procedures Procedure Date / Time Performing Clinician Source Performed US ABDOMEN COMPLETE 2020-10-12 21:21:57 Mohit Kee [facility] PATIENT FINANCIAL 2020-10-12 20:48:25 Doctor Unassigned, [facility] POLICY [facility] NO SHOW OR MISSED 2020-10-12 20:48:10 Doctor Unayennifer, [facility] APPOINTMENT POLICY [facility] ACKNOWLEDGEMENT NOTICE OF PRIVACY 2020-10-12 20:47:56 [facility] PRACTICES [facility] CONSENT/REFUSAL FOR 2020-10-12 20:47:43 Doctor Jessica, [facility] DIAGNOSIS AND TREATMENT [facility] ASSIGNMENT OF BENEFITS 2020-10-12 20:47:29 [facility] ECG (electrocardiogram) 2019-11-07 00:00:00 [facility] Computed tomography of 2019-11-07 00:00:00 [facility] abdomen and pelvis with contrast X-ray of chest, single 2019-11-07 00:00:00 [facility] view Ultrasound, abdomen, 2019-11-07 00:00:00 [facility] limited Plan of Care Planned Activity Planned Date Details Comments Source Goal Patient referral [code [facility] Marcela Bergeron = [id number] ] [facility] Instructions Biliary Colic NADEEN Swift per [facility] Encounters Start End Encounter Admission Attending Care Care Encounter Source Date/Time Date/Time Type Type Clinicians Facility Department ID 2021-08-[address] [facility] [id number] Common 11:33:05 Keiko [id number] 2021-10-06 2021-10-06 Outpatient DORA DE LA CRUZ DORA [id number] Dora 00:00:00 00:00:00 SEBAS alexandra 2020-10-12 2020-10-12 Hospital Radiology [facility] [id number] Univers 15:30:00 23:59:00 Encounter [place] [id number] ity [facility] [id number] [facility] [id number] [place] [id number] Branch 2020-10-12 2020-10-12 Outpatient R RADIOLOGY [facility] [id number] Univers 00:00:00 00:00:00 ity [facility] 2020-02-12 2020-02-12 [facility] [id number] Common 16:10:00 16:10:[address] [facility] [facility] [address] [facility] 2019-12-15 2019-12-15 [facility] [id number] Common 13:20:00 13:20:[address] [facility] [facility] [address] [facility] 2019-11-07 2019-11-07 Departed ANDER Bergeron [id number] [facility] 11:18:00 16:02:[address] 2019-11-07 2019-11-07 Departed NADEEN GUIDO [id number] [facility] 11:18:00 11:18:00 Emergency [place] [address] [address] [facility] 2018-10-06 2018-10-06 Out[facility] [id number] Common 13:45:00 13:45:[address] [facility] [facility] [address] [facility] 2018-09-26 2018-09-26 Out[facility] [id number] Common 09:45:00 09:45:[address] [facility] [address] [facility] 2018-08-14 2018-08-14 Outpatient Jerry Adams [id number] Common 13:15:00 13:15:[address] [facility] 2018-03-17 2018-03-17 Outpatient Jerry Adams [id number] Common 14:30:00 14:30:[address] [facility] 2018-01-09 2018-01-09 Outpatient Jerry Adams [id number] Common 14:30:00 14:30:00 t [facility] [address] Sp[address] [facility] Results Test Description Test Time Test Results Result Source Comments Comments US ABDOMEN 2020-09-20 Diffusely echogenic Univ ersity of COMPLETE 4 liver probably [place] [facility] 21:29:22 represents moderate Branc h (at [...] Test Item Value Reference Range Interpretation Comme [facility] Bedside Troponin I (test code = 80017-7) 0.00 ng/mL 0.00-0.06 [facility] blood cardiac troponin I measurement (mass/volume) 2019-11-07 11:52:00 Test Item Value Reference Range Interpretation Comments Bedside Troponin I (test code = 0.00 ng/mL 67608-9) Serum or plasma glucose measurement (mass/volume)2019-11-07 11:45:00 Test Item Value Reference Range Interpretation Comments Glucose Level (test code = 2345-7) 100 mg/dL 60-100 [facility]sm[facility] of Serum or Plasma by [id number] 11:45:00 Test Item Value Reference Range Interpretation Comments Calculated Osmolality (test code 263 mosm/kg = 24435-6) [facility]um or plasma calcium measurement (mass/volume)2019-11-07 11:45:00 Test Item Value Reference Range Interpretation Comments Calcium Level (test code = 78077-5) 8.4 mg/dL 8.4-10.2 [facility] or plasma total bilirubin measurement (mass/volume) 2019-11-07 11:45:00 Test Item Value Reference Range Interpretation Comments Total Bilirubin (test code = 0.7 mg/dL 0.2-1.2 1974-2) [facility]um or plasma aspartate aminotransferase measurement [...] Range Interpretation Comments Globulin (test code = 43656-2) 3.3 g/dL [facility] or plasma albumin/globulin mass [id number] 11:45:00 Test Item Value Reference Range Interpretation [...] HealthAutomated erythrocyte mean corpuscular hemoglobin concentration measurement (mass/yxr5094-88-65 11:45:00 Test Item Value Reference Range Interpretation Comments Mean Corpuscular Hemoglobin Concent 36.0 g/dL 33.0-37.0 (test code = 786-4) [facility] HealthAutomated erythrocyte distribution width [id number] 11:45:00 Test Item Value Reference Range Interpretation Comments Red Cell Distribution Width (test code 11.8 % 10.7-14.5 = 788-0) [facility] HealthAutomated blood platelet count (count/volume)2019-11-07 11:45:00 Test Item Value Reference Range Interpretation Comments Platelet Count (test code = 139 10*3/uL 150-450 777-3) [facility] HealthAutomated blood platelet mean volume xbsvstlikgf2105-71-56 11:45:00 Test Item Value Reference Range Interpretation Comments Mean Platelet Volume (test code = 8.0 fL 5.7-10.7 77077-3) [facility] HealthAutomated blood neutrophil count as percentage of total xiseghffmm7805-83-63 11:45:00 Test Item Value Reference Range Interpretation Comments Neutrophils (%) (Auto) (test code = 57 % 47-75 770-8) [facility] HealthAutomated blood lymphocyte count as percentage of total jdqxfpzejw3296-47-27 11:45:00 Test Item Value Reference Range Interpretation Comments Lymphocytes (%) (Auto) (test code = 28 % 25-44 736-9) [facility] HealthAutomated blood monocyte count as percentage of total leukocytes 2019-11-07 11:45:00 Test Item Value Reference Range Interpretation Comments Monocytes (%) (Auto) (test code = 13 % 3-10 5905-5) [facility] HealthAutomated blood eosinophil count as percentage of total asummvfjpt3600-30-47 11:45:00 Test Item Value Reference Range Interpretation [...] (test code = 1.4 10*3/uL 1.4-4.1 731-0) [facility] automated count (number/volume)2019-11-07 11:45:00 Test Item Value Reference Range Interpretation Comments Monocytes # (Auto) (test code = 0.6 10*3/uL 0-1.3 742-7) [facility] HealthAutomated blood eosinophil [id number] 11:45:00 Test Item Value Reference Range Interpretation Comments Eosinophils # (Auto) (test code = 0.1 10*3/uL 0-0.8 711-2) [facility] HealthAutomated blood basophil count (number/volume)2019-11-07 11:45:00 Test Item Value Reference Range Interpretation Comments Basophils # (Auto) (test code = 0.0 10*3/uL 0-0.1 704-7) [facility] HealthService comment [id number] 11:45:00 Test Item Value Reference Range Interpretation Comments Manual Differential (test code = Not Ind 8265-1) [facility] CenterUrinalysis specimen collection [id number] 11:45:00 Test Item Value Reference Range Interpretation Comments Urine Source (test code = 76832-0) URINE [facility] CenterColor of Urine by [id number] 11:45:00 Test Item Value Reference Range Interpretation Comments Urine Color (test code = 34549-7) Lt Yellow Yel-Cher * [facility] HealthUrine clarity gngnxrsxdiwxo3743-23-03 11:45:00 Test Item Value Reference Range Interpretation Comments Urine Appearance (test code = 38027-5) Clear Clear * [facility] HealthUrine pH measurement by automated test [id number] 11:45:00 Test Item Value Reference Range Interpretation Comments Urine pH (test code = 74546-6) 5.0 5.0-8.0 [facility] HealthSpecific gravity of Urine by Automated test [id number] 11:45:00 Test Item Value Reference Range Interpretation Comments Urine Specific [place] (test code = 1.006 1.005-1.030 62164-7) [facility] HealthUrine protein measurement by automated test strip (mass/volume) 2019-11-07 11:45:00 Test Item Value Reference Range Interpretation Comments Urine Protein (test code = Negative mg/dL Negative * 36078-9) [facility] HealthUrine glucose measurement by automated test strip (mass/volume) 2019-11-07 11:45:00 Test Item Value Reference Range Interpretation Comments Urine Glucose (UA) (test code Negative mg/dL Negative * = 41466-7) [facility] HealthUrine ketones measurement by automated test strip (mass/volume) 2019-11-07 11:45:00 Test Item Value Reference Range Interpretation Comments Urine Ketones (test code = Negative mg/dL Negative * 45418-8) [facility] HealthUrine erythrocytes count by automated test strip (number/volume) 2019-11-07 11:45:00 Test Item Value Reference Range Interpretation Comments Urine Occult Blood (test code = Negative Negative * 33494-9) [facility] HealthUrine nitrite detection by automated test lfzho6960-95-55 11:45:00 Test Item Value Reference Range Interpretation Comments Urine Nitrite (test code = 04691-7) Negative Negative [facility] HealthUrine total bilirubin measurement by automated test strip (mass/volume)2019-11-07 11:45:00 Test Item Value Reference Range Interpretation Comments Urine Bilirubin (test code = Negative mg/dL Negative 25042-7) [facility] HealthUrine urobilinogen measurement by automated test strip (mass/volume)2019-11-07 11:45:00 Test Item Value Reference Range Interpretation Comments Urine Urobilinogen (test code Negative mg/dL 0.0-1.0 = 93024-6) [facility] HealthUrine leukocytes count by automated test strip (number/volume) 2019-11-07 11:45:00 Test Item Value Reference Range Interpretation Comments Urine Leukocyte Esterase Negative {Fransico}/uL Negative (test code = 15564-4) [facility] HealthMicroscopic examination of [id number] 11:45:00 Test Item Value Reference Range Interpretation Comments Microscopic Urinalysis (T) (test code Not Ind = 82027-3) [facility] comment 11:45:00 Test Item Value [...] Dioxide Level (test code = 25 mmol/L -2027-9) [facility] HealthSerum or plasma anion gap determination (moles/volume)2019-11-07 11:45:00 Test Item Value Reference Range Interpretation Comments Anion Gap (test code = 63736-1) 17 03-08 [facility] HealthSerum or plasma urea nitrogen measurement (mass/volume)2019-11-07 11:45:00 Test Item Value Reference Range Interpretation Comments Blood Urea Nitrogen (test code = 14 mg/dL 04-11 3094-0) [facility] HealthSerum or plasma creatinine measurement (mass/volume)2019-11-07 11:45:00 Test Item Value Reference Range Interpretation Comments Creatinine (test code = 2160-0) 0.9 mg/dL 0.7-1.3 [facility] HealthGFR estimate [id number] 11:45:00 Test Item Value Reference Range Interpretation Comments Estimat Glomerular Filtration Rate 95 73-125 (test code = 87380-7) [facility] HealthSerum or plasma urea nitrogen/creatinine mass qkjik9023-13-02 11:45:00 Test Item Value Reference Range Interpretation Comments BUN/Creatinine Ratio (test code = 16 3097-3) [facility] HealthAutomated blood leukocyte count (number/volume)2019-11-07 11:45:00 Test Item Value Reference Range Interpretation Comments White Blood Count (test code = 5.0 10*3/uL 6690-2) Blood erythrocytes automated count (number/volume)2019-11-07 11:45:00 Test Item Value Reference Range Interpretation Comments Red Blood Count (test code = 4.30 10*6/uL 789-8) Blood hemoglobin measurement (mass/volume)2019-11-07 11:45:00 Test Item Value Reference Range Interpretation Comments Hemoglobin (test code = 718-7) 14.2 g/dL Automated blood hematocrit (volume fraction)2019-11-07 11:45:00 Test Item Value Reference Range Interpretation Comments Hematocrit (test code = 4544-3) 39.4 % Automated erythrocyte mean corpuscular volume (MCV) ssrpqkgmhbg2597-24-81 11:45:00 Test Item Value Reference Range Interpretation Comments Mean Corpuscular Volume (test code = 91.6 fL 787-2) Automated erythrocyte mean corpuscular hemoglobin (mass per erythrocyte) 2019-11-07 11:45:00 Test Item Value Reference Range Interpretation Comments Mean Corpuscular Hemoglobin (test 33.0 pg code = 785-6) Automated erythrocyte mean corpuscular hemoglobin concentration measurement (mass/vfg3515-09-07 11:45:00 Test Item Value Reference Range Interpretation Comments Mean Corpuscular Hemoglobin Concent 36.0 g/dL (test code = 786-4) Automated erythrocyte distribution width [id number] 11:45:00 Test Item Value Reference Range Interpretation Comments Red Cell Distribution Width (test code 11.8 % = 788-0) Automated blood platelet count (count/volume)2019-11-07 11:45:00 Test Item Value Reference Range Interpretation Comments Platelet Count (test code = 139 10*3/uL 777-3) Automated blood platelet mean volume wwaurznzjyx0196-80-05 11:45:00 Test Item Value Reference Range Interpretation Comments Mean Platelet Volume (test code = 8.0 fL 55529-6) Automated blood neutrophil count as percentage of total vhtwiofzkh4410-84-13 11:45:00 Test Item Value Reference Range Interpretation Comments Neutrophils (%) (Auto) (test code = 57 % 770-8) Automated blood lymphocyte count as percentage of total utejwlvipn5406-77-65 11:45:00 Test Item Value Reference Range Interpretation Comments Lymphocytes (%) (Auto) (test code = 28 % 736-9) Automated blood monocyte count as percentage of total rphtpkoajs3957-68-19 11:45:00 Test Item Value Reference Range Interpretation Comments Monocytes (%) (Auto) (test code = 13 % 5905-5) Automated blood eosinophil count as percentage of total ugdzillvhu0620-33-02 11:45:00 Test Item Value Reference Range Interpretation Comments Eosinophils (%) (Auto) (test code = 2 % 713-8) Automated blood basophil count as percentage of total uhorraoxhs6305-28-18 11:45:00 Test Item Value Reference Range Interpretation Comments Basophils (%) (Auto) (test code = 0 % 706-2) Automated blood neutrophil count (number/volume)2019-11-07 11:45:00 Test Item Value Reference Range Interpretation Comments Neutrophils # (Auto) (test code = 2.8 10*3/uL 751-8) Automated blood lymphocyte count (number/volume)2019-11-07 11:45:00 Test Item Value Reference Range Interpretation Comments Lymphocytes # (Auto) (test code = 1.4 10*3/uL 731-0) Blood monocytes automated count (number/volume)2019-11-07 11:45:00 Test Item Value Reference Range Interpretation Comments Monocytes # (Auto) (test code = 0.6 10*3/uL 742-7) Automated blood eosinophil [id number] 11:45:00 Test Item Value Reference Range Interpretation Comments Eosinophils # (Auto) (test code = 0.1 10*3/uL 711-2) Automated blood basophil count (number/volume)2019-11-07 11:45:00 Test Item Value Reference Range Interpretation Comments Basophils # (Auto) (test code = 0.0 10*3/uL 704-7) Service comment [id number] 11:45:00 Test Item Value Reference Range Interpretation Comments Manual Differential (test code = Not Ind 8265-1) Urinalysis specimen collection [id number] 11:45:00 Test Item Value Reference Range Interpretation Comments Urine Source (test code = 12995-5) URINE Color of Urine by [id number] 11:45:00 Test Item Value Reference Range Interpretation Comments Urine Color (test code = 85766-1) Lt Yellow Urine clarity zcbnuetembfif1352-62-08 11:45:00 Test Item Value Reference Range Interpretation Comments Urine Appearance (test code = 32782-4) Clear Urine pH measurement by automated test flrre7316-48-90 11:45:00 Test Item Value Reference Range Interpretation Comments Urine pH (test code = 15913-0) 5.0 Specific gravity of Urine by Automated test [id number] 11:45:00 Test Item Value Reference Range Interpretation Comments Urine Specific [place] (test code = 1.006 56030-9) Urine protein measurement by automated test strip (mass/volume)2019-11-07 11:45:00 Test Item Value Reference Range Interpretation Comments Urine Protein (test code = Negative mg/dL 47303-2) Urine glucose measurement by automated test strip (mass/volume)2019-11-07 11:45:00 Test Item Value Reference Range Interpretation Comments Urine Glucose (UA) (test code Negative mg/dL = 77784-0) Urine ketones measurement by automated test strip (mass/volume)2019-11-07 11:45:00 Test Item Value Reference Range Interpretation Comments Urine Ketones (test code = Negative mg/dL 75675-8) Urine erythrocytes count by automated test strip (number/volume)2019-11-07 11:45:00 Test Item Value Reference Range Interpretation Comments Urine Occult Blood (test code = Negative 58516-5) Urine nitrite detection by automated test alfey2106-03-35 11:45:00 Test Item Value Reference Range Interpretation Comments Urine Nitrite (test code = 59616-2) Negative Urine total bilirubin measurement by automated test strip (mass/volume) 2019-11-07 11:45:00 Test Item Value Reference Range Interpretation Comments Urine Bilirubin (test code = Negative mg/dL 64970-1) Urine urobilinogen measurement by automated test strip (mass/volume)2019-11-07 11:45:00 Test Item Value Reference Range Interpretation Comments Urine Urobilinogen (test code Negative mg/dL = 03478-7) Urine leukocytes count by automated test strip (number/volume)2019-11-07 11:45:00 Test Item Value Reference Range Interpretation Comments Urine Leukocyte Esterase Negative {Fransico}/uL (test code = 36463-1) Microscopic examination of [id number] 11:45:00 Test Item Value Reference Range Interpretation Comments Microscopic Urinalysis (T) (test code Not Ind = 93300-5) Service comment 11:45:00 Test Item Value Reference Range Interpretation Comments Urinalysis Comment (test code = 8262-8) * Serum or plasma sodium measurement (moles/volume)2019-11-07 11:45:00 Test Item Value Reference Range Interpretation Comments Sodium Level (test code = 2951-2) 131 mmol/L Serum or plasma potassium measurement (moles/volume)2019-11-07 11:45:00 Test Item Value Reference Range Interpretation Comments Potassium Level (test code = 4.8 mmol/L 2823-3) Serum or plasma chloride measurement (moles/volume)2019-11-07 11:45:00 Test Item Value Reference Range Interpretation Comments Chloride Level (test code = 2075-0) 94 mmol/L Serum or plasma total carbon dioxide measurement (moles/volume)2019-11-07 11:45:00 Test Item Value Reference Range Interpretation Comments Carbon Dioxide Level (test code = 25 mmol/L 2027-9) Serum or plasma anion gap determination (moles/volume)2019-11-07 11:45:00 Test Item Value Reference Range Interpretation Comments Anion Gap (test code = 92242-7) 17 Serum or plasma urea nitrogen measurement (mass/volume)2019-11-07 11:45:00 Test Item Value Reference Range Interpretation Comments Blood Urea Nitrogen (test code = 14 mg/dL 4-0) Serum or plasma creatinine measurement (mass/volume)2019-11-07 11:45:00 Test Item Value Reference Range Interpretation Comments Creatinine (test code = 2160-0) 0.9 mg/dL GFR estimate [id number] 11:45:00 Test Item Value Reference Range Interpretation Comments Estimat Glomerular Filtration Rate 95 (test code = 45536-8) Serum or plasma urea nitrogen/creatinine mass [id number] 11:45:00 Test Item Value Reference Range Interpretation Comments BUN/Creatinine Ratio (test code = 16 3097-3) Serum or plasma glucose measurement (mass/volume)2019-11-07 11:45:00 Test Item Value Reference Range Interpretation Comments Glucose Level (test code = 2345-7) 100 mg/dL Osmolality of Serum or Plasma by ypoxgkfmptm5832-36-00 11:45:00 Test Item Value Reference Range Interpretation Comments Calculated Osmolality (test code 263 mosm/kg = 98916-8) Serum or plasma calcium measurement (mass/volume)2019-11-07 11:45:00 Test Item Value Reference Range Interpretation Comments Calcium Level (test code = 43301-6) 8.4 mg/dL Serum or plasma total bilirubin measurement (mass/volume)2019-11-07 11:45:00 Test Item Value Reference Range Interpretation Comments Total Bilirubin (test code = 0.7 mg/dL 1974-2) Serum or plasma aspartate aminotransferase measurement (enzymatic activity/volume)2019-11-07 11:45:00 Test Item Value Reference Range Interpretation Comments Aspartate Amino Transf (AST/SGOT) 81 U/L (test code = 1920-8) Serum or plasma alanine aminotransferase measurement (enzymatic activity/volume) 2019-11-07 11:45:00 Test Item Value Reference Range Interpretation Comments Alanine Aminotransferase (ALT/SGPT) 82 U/L (test code = 1742-6) Serum or plasma protein measurement (mass/volume)2019-11-07 11:45:00 Test Item Value Reference Range Interpretation Comments Total Protein (test code = 2885-2) 7.5 g/dL Serum or plasma albumin measurement (mass/volume)2019-11-07 11:45:00 Test Item Value Reference Range Interpretation Comments Albumin (test code = 1751-7) 4.2 g/dL Serum globulin measurement by calculation (mass/volume)2019-11-07 11:45:00 Test Item Value Reference Range Interpretation Comments Globulin (test code = 10345-0) 3.3 g/dL Serum or plasma albumin/globulin mass [id number] 11:45:00 Test Item Value Reference Range Interpretation Comments Albumin/Globulin Ratio (test code = 1.3 1759-0) Serum or plasma alkaline phosphatase measurement (enzymatic activity/volume) 2019-11-07 11:45:00 Test Item Value Reference Range Interpretation Comments Alkaline Phosphatase (test code = 55 U/L 6768-6) Serum or plasma lipase measurement (enzymatic activity/volume)2019-11-07 11:45:00 Test Item Value Reference Range Interpretation Comments Lipase (test code = 3040-3) 45 U/L
[2022-06-29] MEDS ORDERED: MORPHINE 4 MG/ML SYR ONE (04:23)
[2022-06-29] MEDS ORDERED: NA CHLORIDE 0.9% 1,000 ML ONE (04:24)
[2022-06-29] MEDS ORDERED: KETOROLAC 30 MG/ML INJ ONE (04:24)
[2022-06-29] MEDS ORDERED: ONDANSETRON 4 MG/2 ML VIAL ONE (04:24)
[2022-06-29 04:32] LABS: Urine Blood Negative (Negative); Urine Glucose Negative (Negative); Urine Protein Negative (Negative); Urine Specific Gravity <=1.005 (1.005-1.030); Urine pH 5.5 (5.0-7.0)
[2022-06-29 04:44] LABS: Absolute Lymphocytes (CBC) 1.8 K/uL (0.7-4.9); Hematocrit 41.3 % (39.6-49.0); Lymphocytes % 37.1 % (15.3-44.8); MCV 91.3 fL (80-100); MPV 6.4 fL (7.6-11.3); RBC Red Blood Cell Count 4.53 M/uL (4.33-5.43)
[2022-06-29 05:08] LABS: Albumin 3.7 g/dL (3.4-5.0); Bilirubin Total 0.9 mg/dL (0.2-1.0); Potassium 3.7 mmol/L (3.5-5.1); Protein, Total 7.7 g/dL (6.4-8.2)
[2022-06-29] MEDS ORDERED: HYDROMORPHONE HCL 0.5 MG/0.5 ML INJ ONE (05:09)
--- NOTE | 2022-06-29 07:21 | ER ---
Nurse's Notes [facility] Name: Sheng Coats Age: 51 yrs Sex: Male : 1970 Arrival Date: 06/29/2022 Time: 03:47 Bed 12 Private MD: Diagnosis: Abdominal tenderness;Unspecified symptoms and signs involving the musculoskeletal system;Essential (primary) hypertension Presentation: 06/29 03:50 Chief complaint: Patient states: "Earlier today by back started hurting, but now it is tw5 just killing me shit." Patient is complaining of 8/10 pain on the right lower side of his back. Coronavirus screen: Vaccine status: Patient reports receiving the 2nd dose of the covid vaccine. J and J plus booster. Ebola Screen: Patient negative for fever greater than or equal to 101.5 degrees Fahrenheit, and additional compatible Ebola Virus Disease symptoms Patient denies exposure to infectious person. Patient denies travel to an Ebola-affected area in the 21 days before illness onset. Initial Sepsis Screen: Does the patient meet any 2 criteria? HR > 90 bpm. Does the patient have a suspected source of infection? No. Patient's initial sepsis screen is negative. Risk Assessment: Do you want to hurt yourself or someone else? Patient reports no desire to harm self or others. Onset of symptoms was June 28, 2022 at 16:00. 03:50 Method Of Arrival: Ambulatory tw5 03:50 Acuity: MARY 3 tw5 Triage Assessment: 03:51 General: Appears uncomfortable, Behavior is calm, cooperative, appropriate for age. tw5 Pain: Complains of pain in right low back Pain currently is 8 out of 10 on a pain scale. Historical: - Allergies: 03:51 No Known Allergies; tw5 - Home Meds: 03:53 Edarbi 40 mg oral tab 1 tab once daily [Active]; tw5 - PMHx: 03:51 GERD; Hyperlipidemia; Hypertension; tw5 - PSHx: 03:51 Shoulder; tw5 - Immunization history:: Flu vaccine is up to date. - Social history:: Smoking status: Patient denies any tobacco usage or history of. - Family history:: not pertinent. Screenin:53 Abuse screen: Denies threats or abuse. Denies injuries from another. tw5 04:36 Nutritional screening: No deficits noted. Tuberculosis screening: No symptoms or risk tw5 factors identified. Fall Risk IV access (20 points). Assessment: 04:36 General: Appears uncomfortable, Behavior is calm, cooperative, appropriate for age. tw5 Pain: Pain currently is 8 out of 10 on a pain scale. 06:44 Reassessment: Patient states feeling better. Patient states symptoms have improved. tw5 General: Reports "i am feeling better, but I am still no comfortable.". Pain: Pain currently is 6 out of 10 on a pain scale. Neuro: No deficits noted. Respiratory: No deficits noted. 07:39 Reassessment: Patient appears in no apparent distress at this time. Respiratory: Airway ss is patent Respiratory effort is even, unlabored, Respiratory pattern is regular, symmetrical. Derm: Skin is pink, warm \\T\\ dry. normal. Vital Signs: 03:50 BP 148 / 100; Pulse 90; Resp 18; Temp 97.6; Pulse Ox 97% ; Weight 113.4 kg; Height 6 tw5 ft. 3 in. (190.50 cm); Pain 8/10; 06:45 Pain 6/10; tw5 03:50 Body Mass Index 31.25 (113.40 kg, 190.50 cm) tw5 ED Course: 03:47 Patient arrived in ED. jj6 03:51 Triage completed. tw5 03:51 Arm band placed on right wrist. tw5 03:56 Jim Fernandez MD is Attending Physician. [facility] 04:21 Gela Monzon is Primary Nurse. tw5 04:36 Awaiting lab results. tw5 04:36 Patient has correct armband on for positive identification. Bed in low position. Call tw5 light in reach. Side rails up X 1. Pulse ox on. NIBP on. Door closed. Noise minimized. Lights dimmed. Warm blanket given. Verbal reassurance given. 04:36 No provider procedures requiring assistance completed. Initial lab(s) drawn, by me, tw5 sent to lab. Inserted saline lock: 20 gauge in right antecubital area, using aseptic technique. Blood collected. 04:37 CBC with Diff Sent. tw5 04:37 CMP Sent. tw5 04:37 Lipase Sent. tw5 05:01 CT Stone Protocol In Process Unspecified. EDMS 06:07 CT Aorta for Dissection In Process Unspecified. EDMS 07:39 IV discontinued, intact, bleeding controlled, No redness/swelling at site. Pressure ss dressing applied. Administered Medications: 04:37 Drug: NS 0.9% 1000 ml Route: IV; Rate: 1 bolus; Site: right antecubital; tw5 04:37 Drug: Zofran (Ondansetron) 4 mg Route: IVP; Site: right antecubital; tw5 05:06 Follow up: Response: No adverse reaction; Pain is unchanged, physician notified tw5 04:37 Drug: morphine 4 mg Route: IVP; Infused Over: 4 mins; Site: right antecubital; tw5 05:07 Follow up: Response: No adverse reaction; Pain is unchanged, physician notified; tw5 Medication administered at discharge.; RASS: Alert and Calm (0) 04:37 Drug: Ketorolac 30 mg Route: IVP; Site: right antecubital; tw5 05:06 Follow up: Response: No adverse reaction tw5 05:06 Drug: Dilaudid (HYDROmorphone) 1 mg Route: IVP; Site: right hand; tw5 06:45 Follow up: Pain 6/10 Adult; Response: No adverse reaction; Pain is decreased; RASS: tw5 Alert and Calm (0) Medication: 04:36 VIS not applicable for this client. Outcome: 07:20 Discharge ordered by . chucho 07:39 Discharged to home ambulatory. ss 07:39 Condition: good 07:39 Discharge instructions given to patient, Instructed on discharge instructions, follow up and referral plans. medication usage, Demonstrated understanding of instructions, follow-up care, medications, Prescriptions given X 4. 07:40 Patient left the ED. ss Signatures: Dispatcher [employer] EDCT Jim Fernandez MD MD cha Smirch, Shelby, RN RN Gela Rodriguez tw5 Iman Espinoza jj6
--- NOTE | 2022-06-29 07:21 | EDPHYS ---
Physician Documentation [facility] Name: Sheng Coats Age: 51 yrs Sex: Male : 1970 Arrival Date: 06/29/2022 Time: 03:47 Bed 12 Private MD: NETO Physician Jim Fernandez HPI: 06/29 05:00 This 51 yrs old Male presents to ER via Ambulatory with complaints of Low chucho Back Pain. 05:00 The patient presents with pain that is acute, with no known mechanism of injury. The chucho symptoms are located in the right mid back and right low back. The pain radiates to the lumbar area, left low back and right low back. The problem was sustained from unknown cause. Onset: The symptoms/episode began/occurred 1 day(s) ago. Modifying factors: The patient symptoms are alleviated by nothing. Modifying factors: the patient symptoms are aggravated by nothing. Associated signs and symptoms: The patient has no apparent associated signs or symptoms. Severity of symptoms: At their worst the symptoms were mild, moderate, in the emergency department the symptoms are unchanged. The patient has not experienced similar symptoms in the past. Historical: - Allergies: 03:51 No Known Allergies; tw5 - Home Meds: 03:53 Edarbi 40 mg oral tab 1 tab once daily [Active]; tw5 - PMHx: 03:51 GERD; Hyperlipidemia; Hypertension; tw5 - PSHx: 03:51 Shoulder; tw5 - Immunization history:: Flu vaccine is up to date. - Social history:: Smoking status: Patient denies any tobacco usage or history of. - Family history:: not pertinent. ROS: 05:00 Constitutional: Negative for fever, chills, and weight loss, Eyes: Negative for injury, chucho pain, redness, and discharge, ENT: Negative for injury, pain, and discharge, Neck: Negative for injury, pain, and swelling, Cardiovascular: Negative for chest pain, palpitations, and edema, Respiratory: Negative for shortness of breath, cough, wheezing, and pleuritic chest pain, Abdomen/GI: Negative for abdominal pain, nausea, vomiting, diarrhea, and constipation, : Negative for injury, bleeding, discharge, and swelling, MS/Extremity: Negative for injury and deformity, Skin: Negative for injury, rash, and discoloration, Neuro: Negative for headache, weakness, numbness, tingling, and seizure, Psych: Negative for depression, anxiety, suicide ideation, homicidal ideation, and hallucinations, Allergy/Immunology: Negative for hives, rash, and allergies, Endocrine: Negative for neck swelling, polydipsia, polyuria, polyphagia, and marked weight changes, Hematologic/Lymphatic: Negative for swollen nodes, abnormal bleeding, and unusual bruising. 05:00 Back: Positive for pain at rest, flank pain, on the right, of the lumbar area and left low back. 05:00 MS/extremity: Negative for acute changes. Exam: 05:00 Constitutional: This is a well developed, well nourished patient who is awake, alert, chucho and in no acute distress. Head/Face: Normocephalic, atraumatic. Eyes: Pupils equal round and reactive to light, extra-ocular motions intact. Lids and lashes normal. Conjunctiva and sclera are non-icteric and not injected. Cornea within normal limits. Periorbital areas with no swelling, redness, or edema. ENT: Nares patent. No nasal discharge, no septal abnormalities noted. Tympanic membranes are normal and external auditory canals are clear. Oropharynx with no redness, swelling, or masses, exudates, or evidence of obstruction, uvula midline. Mucous membranes moist. Neck: Trachea midline, no thyromegaly or masses palpated, and no cervical lymphadenopathy. Supple, full range of motion without nuchal rigidity, or vertebral point tenderness. No Meningismus. Chest/axilla: Normal chest wall appearance and motion. Nontender with no deformity. No lesions are appreciated. Cardiovascular: Regular rate and rhythm with a normal S1 and S2. No gallops, murmurs, or rubs. Normal PMI, no JVD. No pulse deficits. Respiratory: Lungs have equal breath sounds bilaterally, clear to auscultation and percussion. No rales, rhonchi or wheezes noted. No increased work of breathing, no retractions or nasal flaring. Abdomen/GI: Soft, non-tender, with normal bowel sounds. No distension or tympany. No guarding or rebound. No evidence of tenderness throughout. Male : Normal genitalia with no discharge or lesions. Skin: Warm, dry with normal turgor. Normal color with no rashes, no lesions, and no evidence of cellulitis. MS/ Extremity: Pulses equal, no cyanosis. Neurovascular intact. Full, normal range of motion. Neuro: Awake and alert, GCS 15, oriented to person, place, time, and situation. Cranial nerves II-XII grossly intact. Motor strength 5/5 in all extremities. Sensory grossly intact. Cerebellar exam normal. Normal gait. Psych: Awake, alert, with orientation to person, place and time. Behavior, mood, and affect are within normal limits. 05:00 Back: pain, that is moderate, ROM is painful, with all movement, with rotation to the right, with rotation to the left, with flexion, with extension, normal spinal alignment noted, CVA tenderness, that is moderate, is noted on the right, vertebral tenderness, is not appreciated, muscle spasm, is not present, Straight leg raises: of both lower extremities does not illicit pain. Vital Signs: 03:50 BP 148 / 100; Pulse 90; Resp 18; Temp 97.6; Pulse Ox 97% ; Weight 113.4 kg; Height 6 tw5 ft. 3 in. (190.50 cm); Pain 8/10; 06:45 Pain 6/10; tw5 03:50 Body Mass Index 31.25 (113.40 kg, 190.50 cm) tw5 MDM: 03:56 Patient medically screened. [facility] 07:22 Differential diagnosis: strain, contusion, Herniated disc. Data reviewed: vital signs, [facility] nurses notes, lab test result(s), radiologic studies, CT scan. Data interpreted: playground monitor: rate is 90 beats/min, Pulse oximetry: on room air is 97 %. Test interpretation: by ED physician or midlevel provider:. Counseling: I had a detailed discussion with the patient and/or guardian regarding: the historical points, exam findings, and any diagnostic results supporting the discharge/admit diagnosis, lab results, radiology results, the need for outpatient follow up, for definitive care, a family practitioner. 06/29 03:57 Order name: CBC with Diff; Complete Time: 04:57 [facility] 06/29 03:57 Order name: CMP; Complete Time: 05:12 chucho 06/29 03:57 Order name: Lipase; Complete Time: 05:12 [facility] 06/29 03:57 Order name: CT Stone Protocol [facility] 06/29 04:32 Order name: Urine Dipstick-Ancillary; Complete Time: 04:57 EDMS 06/29 05:14 Order name: CT Aorta for Dissection chucho 06/29 03:57 Order name: IV Saline Lock; Complete Time: 04:36 chucho 06/29 03:57 Order name: Labs collected and sent; Complete Time: 04:36 chucho 06/29 03:57 Order name: Urine Dipstick-Ancillary (obtain specimen); Complete Time: 04:31 chucho Administered Medications: 04:37 Drug: NS 0.9% 1000 ml Route: IV; Rate: 1 bolus; Site: right antecubital; tw5 04:37 Drug: Zofran (Ondansetron) 4 mg Route: IVP; Site: right antecubital; tw5 05:06 Follow up: Response: No adverse reaction; Pain is unchanged, physician notified tw5 04:37 Drug: morphine 4 mg Route: IVP; Infused Over: 4 mins; Site: right antecubital; tw5 05:07 Follow up: Response: No adverse reaction; Pain is unchanged, physician notified; tw5 Medication administered at discharge.; RASS: Alert and Calm (0) 04:37 Drug: Ketorolac 30 mg Route: IVP; Site: right antecubital; tw5 05:06 Follow up: Response: No adverse reaction tw5 05:06 Drug: Dilaudid (HYDROmorphone) 1 mg Route: IVP; Site: right hand; tw5 06:45 Follow up: Pain 6/10 Adult; Response: No adverse reaction; Pain is decreased; RASS: tw5 Alert and Calm (0) Disposition Summary: 06/29/22 07:20 Discharge Ordered Location: Home chucho Problem: new chucho Symptoms: have improved chucho Condition: Fair chucho Diagnosis - Abdominal tenderness chucho - Unspecified symptoms and signs involving the musculoskeletal system chucho - Essential (primary) hypertension chucho Followup: chucho - With: Private Physician - When: 2 - 3 days - Reason: Recheck today's complaints, Continuance of care, Re-evaluation by your physician Discharge Instructions: - Discharge Summary Sheet chucho - Abdominal Pain, Adult chucho - Hypertension, Adult chucho - Abdominal Pain, Adult, [id number] chucho - Hypertension, Adult, [id number] chucho - Managing Your Hypertension chucho Forms: - Medication Reconciliation Form chucho - Thank You Letter chucho - Antibiotic Education chucho - Prescription Opioid Use chucho - Work release form ss Prescriptions: - Valium 5 mg Oral Tablet - take 1 tablet by ORAL route every 8 hours As needed; 20 tablet; Refills: 0, [facility] Product Selection Permitted - Diclofenac Sodium 75 mg Oral tablet,delayed release (DR/EC) - take 1 tablet by ORAL route 2 times per day; 20 tablet; Refills: 0, Product chucho Selection Permitted - Medrol (Luis) 4 mg Oral Tablets, Dose Pack - take 1 tablet by ORAL route as directed - follow package instructions; 1 chucho packet; Refills: 0, Product Selection Permitted - Tylenol-Codeine #3 300 mg-30 mg Oral - take 2 tablet by ORAL route every 6 hours; 20 tablet; Refills: 0, Product chucho Selection Permitted Signatures: Dispatcher [employer] Jim Luciano MD MD cha Wood, Tiffany tw5
[2022-06-29 08:26] VITALS: BP 148/100; TEMP 97.6; O2SAT 97
--- NOTE | 2022-06-29 15:07 | RAD REPORT ---
EXAM DESCRIPTION: CTA Chest, Abdomen, and Pelvis COMPARISON: CT abdomen and pelvis 06/29/2022 CLINICAL HISTORY: [facility] MAIN back pain TECHNIQUE: CTA of the chest, abdomen and pelvis was acquired with IV contrast material. Coronal and sagittal reconstructions were obtained. MIPS reformats are provided. Automated exposure control was u tilized on this examination as a dose lowering technique. FINDINGS: CTA No dissection or aneurysm. No occlusion or significant stenosis. NONVASCULAR CHEST FINDINGS: Heart and mediastinum: Heart size is normal. No lymphadenopathy. Thyroid gland: Unremarkable. Lungs: Clear. Airways: No filling defects. No bronchiectasis. Pleura: No pneumothorax. No significant pleural effusion. Musculoskeletal and soft tissues: Within normal limits for age. NONVASCULAR ABDOMEN & PELVIS FINDINGS: Liver: Normal. Gallbladder and biliary: Cholecystectomy. Unremarkable biliary tree. Pancreas: Normal. Spleen: Normal. Kidneys and adrenal glands: Normal adrenal glands. Normal kidneys Stomach and Small Bowel: The stomach and small bowel are normal. Urinary bladder: Normal. Prostate/Male Urogenital: Normal. Colon and Appendix: Mild colonic diverticulosis. No evidence of appendicitis. Peritoneal cavity: No ascites or free air. Retroperitoneum and lymph nodes: Normal. Musculoskeletal and soft tissues: Soft tissues are unremarkable. No aggressive bone lesions. No com pression fracture. IMPRESSION: CHEST IMPRESSION: No acute chest findings. ABDOMEN AND PELVIS IMPRESSION: 1. No acute intra-abdominal abnormality. 2. Hepatic steatosis. 3. Mild colonic diverticulosis. Electronically signed by: Bill Clark MD 06/29/2022 7:01 AM [employer] Due to temporary technical issues with the PACS/Fluency reporting system, reports are being signed by the in house radiologists without review as a courtesy to insure prompt reporting. The interpreting radiologist is fully responsible for the content of the report.
--- NOTE | 2022-06-29 15:15 | RAD REPORT ---
EXAM DESCRIPTION: Stone Protocol CLINICAL HISTORY: 51 years Male Flank pain, kidney stone suspected COMPARISON: CT abdomen pelvis 07/20/2019. TECHNIQUE: CT of the abdomen and pelvis without contrast. All CT scans at this facility use dose modulation, iterative reconstruction, and/or weight based dosi ng when appropriate to reduce radiation dose to as low as reasonably achievable. FINDINGS: Lower thorax: Lung bases are clear Abdomen: Stomach: Within normal limits Liver: No focal lesions. Hepatic steatosis. No intrahepatic ductal distention. Gallbladder: Surgically absent. Pancreas: Within normal limits Spleen: Within normal limits Right kidney: No hydronephrosis. No renal or ureteral calculi. Unchanged tiny phlebolith adjacent to the right ureterovesicular junction. Left kidney: No hydronephrosis. No renal or ureteral calculi. Adrenal glands: Within normal limits Vascular structures: Within normal limits (although limited evaluation on noncontrast exam). Lymph nodes: No lymphadenopathy by size criteria Pelvis: Small bowel: No significant distention. Appendix: Within normal limits Colon: No distention or acute pericolonic edema. Colonic diverticulosis. Peritoneum: No free intraperitoneal fluid or air. Bones: No acute bone findings. Bladder: Unremarkable. Reproductive organs: No acute findings. Note that evaluation of the bowel and solid organs is somewhat limited due to lack of intravenous and oral contrast. IMPRESSION: 1. No acute abdominopelvic findings. 2. No urinary tract calculi. 3. Colonic diverticulosis without diverticulitis. 4. Hepatic steatosis. Electronically signed by: Mounika King MD 06/29/2022 5:14 AM [employer] Due to temporary technical issues with the PACS/Fluency reporting system, reports are being signed by the in house radiologists without review as a courtesy to insure prompt reporting. The interpreting radiologist is fully responsible for the content of the report.
== END 2022-06-29 07:40 | disposition home or self-care (01) ==
LOC: ER 03:44
DX: R29.91 Unspecified symptoms and signs involving the musculoskeletal system (principal); R10.819 Abdominal tenderness, unspecified site; I10 Essential (primary) hypertension; M54.50 Low back pain, unspecified
CPT/HCPCS: 85025; 36415; 81003; 83690; 80053; 76377; 71275; 74175; 74176; 99284; Q9967; J1170; J7030; J2405